=== PATIENT | male | born 1945 | race Caucasian/White ===

== ENCOUNTER 2019-11-30 00:49 | Day surgery (SDC) | payer OTHER, SELFPAY ==
[2019-11-25 09:31] VITALS: BMI 33.5
[2019-11-30 06:45] VITALS: BP 164/70; PULSE 58; RESP 20; O2SAT 97; BMI 34.6
[2019-11-30] MEDS: LACTATED RINGERS 1,000 ML 150 ML IV CONT (06:57)
[2019-11-30 07:05] LABS: Glucose Point of Care 167 (65-105)
--- NOTE | 2019-11-30 07:25 | PM.HPGS ---
History of Present Illness History of Present Illness Consent: Risks, benefits, and alternatives have been discussed and questions answered. Patient agrees to proceed with procedure. Chief complaint: hx of polyps Narrative: Junaid Avilez is a 74 year old male With a history of colon polyps. His last colonoscopy was 7 years ago [facility] Past Medical History Medical History Type 2 diabetes mellitus with hyperglycemia Surgical History Surgical History History of coronary artery bypass graft Family History Family History Father Carcinoma of colon Social History Social History Smoking status: Never smoker Second hand tobacco smoke exposure: No Alcohol intake: never Substance use: never Substance use type: does not use Gender identity (if verbalized by the patient): Male Meds Home Medications and Allergies Home Medications Medication Instructions Recorded Confirmed Type albuterol sulfate 90 mcg/actuation 1 puff INHALATION Q4H PRN 08/19/19 11/30/19 History aerosol inhaler aspirin 81 mg tablet,delayed 81 mg PO DAILY 08/19/19 11/30/19 History release atorvastatin 40 mg tablet 40 mg PO DAILY 08/19/19 11/30/19 History digoxin 250 mcg (0.25 mg) tablet 250 mcg PO DAILY 08/19/19 11/30/19 History glipizide 5 mg tablet, extended 5 mg PO DAILY 08/19/19 11/30/19 History release 24 hr isosorbide mononitrate 30 mg 30 mg PO DAILY 08/19/19 11/30/19 History tablet,extended release 24 hr losartan 50 mg tablet 50 mg PO DAILY 08/19/19 11/30/19 History metformin 500 mg tablet,extended 2,000 mg PO DAILY tablet 08/19/19 11/30/19 History release 24 hr metoprolol succinate 50 mg 50 mg PO DAILY 08/19/19 11/30/19 History tablet,extended release 24 hr terbinafine HCl 250 mg tablet 250 mg PO DAILY 08/19/19 11/30/19 History ticagrelor 90 mg tablet 90 mg PO DAILY tablet 08/19/19 11/30/19 History tramadol 50 mg tablet 50 mg PO Q6H PRN 08/19/19 11/30/19 History triamterene 37.5 0.5 tablet PO QAM tablet 08/19/19 11/30/19 History mg-hydrochlorothiazide 25 mg tablet insulin degludec 100 unit/mL (3 25 unit SUB-Q .QHS #15 ml 10/26/19 11/30/19 Rx mL) subcutaneous pen Allergies Allergy/AdvReac Type Severity Reaction Status Date / Time No Known Allergies Allergy Verified 11/30/19 06:44 Vital Signs Vital Signs - 24 hr 11/30/19 06:45 Pulse Rate 58 L Respiratory Rate 20 Blood Pressure 164/70 H Pulse Oximetry 97 Exam Resp: Auscultation: clear to auscultation bilaterally Cardio: Rate: regular rate Rhythm: regular rhythm GI: GI Palp: Yes Soft to palpation and No Tenderness to palpation present (GI) Assessment and Plan Assessment and plan (1) Personal history of colonic polyps: Code(s): Z86.010 - Personal history of colonic polyps Status: Acute Assessment and Plan: Colonoscopy with possible biopsy or polypectomy or cautery or injection of substances.
--- NOTE | 2019-11-30 07:35 | WPDANESEPPF ---
Anes - Initial Pre Proc Eval Procedure: Operation Date: 11/30/19 08:00 Proposed Procedures p Screening Colonoscopy - Ha Martines MD Date/Time: 11/30/19 07:35 Surgeon: Ha Martines MD Pre Op Diagnosis: hx of polyps Patient Data Age: 74 Gender: M Height: 5 ft 8 in Weight: 103.3 kg Last Vital Signs Pulse 58 L 11/30/19 06:45 Resp 20 11/30/19 06:45 BP 164/70 H 11/30/19 06:45 Pulse Ox 97 11/30/19 06:45 Allergies Allergy/AdvReac Type Severity Reaction Status Date / Time No Known Allergies Allergy Verified 11/30/19 06:44 Home Medications Medication Instructions Recorded Confirmed Type albuterol sulfate 90 mcg/actuation 1 puff INHALATION Q4H PRN 08/19/19 11/30/19 History aerosol inhaler aspirin 81 mg tablet,delayed 81 mg PO DAILY 08/19/19 11/30/19 History release atorvastatin 40 mg tablet 40 mg PO DAILY 08/19/19 11/30/19 History digoxin 250 mcg (0.25 mg) tablet 250 mcg PO DAILY 08/19/19 11/30/19 History glipizide 5 mg tablet, extended 5 mg PO DAILY 08/19/19 11/30/19 History release 24 hr isosorbide mononitrate 30 mg 30 mg PO DAILY 08/19/19 11/30/19 History tablet,extended release 24 hr losartan 50 mg tablet 50 mg PO DAILY 08/19/19 11/30/19 History metformin 500 mg tablet,extended 2,000 mg PO DAILY tablet 08/19/19 11/30/19 History release 24 hr metoprolol succinate 50 mg 50 mg PO DAILY 08/19/19 11/30/19 History tablet,extended release 24 hr terbinafine HCl 250 mg tablet 250 mg PO DAILY 08/19/19 11/30/19 History ticagrelor 90 mg tablet 90 mg PO DAILY tablet 08/19/19 11/30/19 History tramadol 50 mg tablet 50 mg PO Q6H PRN 08/19/19 11/30/19 History triamterene 37.5 0.5 tablet PO QAM tablet 08/19/19 11/30/19 History mg-hydrochlorothiazide 25 mg tablet insulin degludec 100 unit/mL (3 25 unit SUB-Q .QHS #15 ml 10/26/19 11/30/19 Rx mL) subcutaneous pen Laboratory Tests 11/30/19 07:02 POC Capillary Glucose 167 mg/dl H mg/dl (65-105) Patient hx anesthesia problems: none Family hx anesthesia problems: none [facility] Past Medical History Medical History (Updated 11/30/19 @ 07:34 by Parish Mccarthy MD) Hypertensive heart disease without heart failure Mild persistent asthma without complication Type 2 diabetes mellitus with hyperglycemia Surgical History Surgical History History of coronary artery bypass graft Family History Family History Father Carcinoma of colon Social History Social History Smoking status: Never smoker Second hand tobacco smoke exposure: No Alcohol intake: never Substance use: never Substance use type: does not use Gender identity (if verbalized by the patient): Male Anes - Eval Final PreProcedure Day of Procedure 11/30/19 07:35 Patient weight: obese Heart: regular rate and rhythm Lungs: clear to auscultation Airway: Mallampati scale class II Neurological: alert and oriented Last oral intake: >/= 8 hours ASA classification: III Emergent: no Anesthetic plan: proceed Anesthesia type and monitoring: general GIVS and standard monitoring Informed Consent: The patient's anesthetic plan and its attendant risks and benefits were discussed with the patient/family/POA. Questions were solicited and answers provided to the satisfaction of the patient/family/POA.
[2019-11-30 08:16] VITALS: BP 118/68; PULSE 50; RESP 16; O2SAT 96
[2019-11-30 08:26] VITALS: BP 128/78; PULSE 48; RESP 16; O2SAT 96
[2019-11-30 08:31] LABS: Glucose Point of Care 164 (65-105)
[2019-11-30 08:36] VITALS: BP 129/74; PULSE 49; RESP 16; O2SAT 96
== END 2019-11-30 08:59 | disposition home or self-care (01) ==
PROVIDERS: PCP Family Medicine; Visit Provider Internal Medicine Gastroenterology
PROC: 0DJD8ZZ Inspection of Lower Intestinal Tract, Via Natural or Artificial Opening Endoscopic (ICD-10-PCS; CPT 45378; principal; 2019-11-30 08:00)
DX: Z12.11 Encounter for screening for malignant neoplasm of colon (principal); D12.4 Benign neoplasm of descending colon; K57.30 Diverticulosis of large intestine without perforation or abscess without bleeding; Z80.0 Family history of malignant neoplasm of digestive organs; E11.9 Type 2 diabetes mellitus without complications; Z95.1 Presence of aortocoronary bypass graft; Z79.82 Long term (current) use of aspirin; Z79.84 Long term (current) use of oral hypoglycemic drugs; Z79.4 Long term (current) use of insulin; I11.9 Hypertensive heart disease without heart failure; J45.30 Mild persistent asthma, uncomplicated; E66.9 Obesity, unspecified; Z68.34 Body mass index [BMI] 34.0-34.9, adult
CPT/HCPCS: 45385; 88305; J2704; J7120

== ENCOUNTER → 2020-08-14 14:41 | Outpatient (CLI) | payer OTHER, SELFPAY ==
--- NOTE | ~2020-08-14 | XR_ITS ---
EXAMINATION: XR knee RT 2V DATE: 08/14/2020 15:52 INDICATION: Right knee pain post fall TECHNIQUE: Weight bearing anteroposterior and Metz, sunrise, and flexed lateral views of both kn ees were obtained. COMPARISON: None FINDINGS: Bone alignment is normal. No acute fracture. Tricompartmental osteoarthritis with moderate joint spac e during the medial compartment and mild joint space narrowing in the lateral and patellofemoral comp artments with prominent marginal osteophytes in the medial and lateral compartments. Small metallic f oreign body in the anteromedial metaphyseal region of the right tibia. Correlate for history of prior surgery or penetrating trauma. There is infrapatellar soft tissue swelling with couple heterotopic o ssicles along the superficial margin of the patellar tendon. Small to moderate sized right knee joint effusion. IMPRESSION: 1. Moderate medial compartment predominant tricompartmental osteoarthritis of the right knee. 2. Small to moderate-sized right knee joint effusion. Reviewed, dictated and finalized at location [facility] IMPRESSION: 1. Moderate medial compartment predominant tricompartmental osteoarthritis of t he right knee. 2. Small to moderate-sized right knee joint effusion.
== END ==
PROVIDERS: PCP Family Medicine; Visit Provider Family Medicine
DX: M17.11 Unilateral primary osteoarthritis, right knee (principal); M25.461 Effusion, right knee
CPT/HCPCS: 73560

== ENCOUNTER 2022-06-19 15:06 | Outpatient (CLI) | payer OTHER, SELFPAY ==
[2022-06-19 15:31] LABS: Basophils Absolute Auto 0.1 K/mm3 (0.0-0.1); Basophils Percent Auto 0.7 % (0.2-1.2); Eosinophils Absolute Auto 0.2 K/mm3 (0-0.3); Eosinophils Percent Auto 1.5 % (0-4.4); Hematocrit 37.9 % (42.0-52.0); Hemoglobin 12.7 g/dL (14.0-18.0); Immature Granulocyte Absolute 0.13 K/mm3 (0.00-0.031); Immature Granulocyte Percent A 1.2 % (0-0.5); Lymphocytes Absolute Auto 2.08 K/mm3 (0.9-3.2); Lymphocytes Percent Auto 18.6 % (18.3-44.2); Mean Corpuscular HGB Conc 33.5 g/dl (32-36); Mean Corpuscular Hemoglobin 29.9 pg (26-34); Mean Corpuscular Volume 89.2 fl (80-100); Mean Platelet Volume 9.4 fl (7.4-10.4); Monocytes Absolute Auto 0.8 K/mm3 (0.1-0.6); Monocytes Percent Auto 7.3 % (2.6-8.5); Neutrophils Absolute Auto 7.9 K/mm3 (1.3-6.7); Neutrophils Percent Auto 70.7 % (45.5-73.1); Platelet Count Result 279 k/mm3 (150-375); Red Blood Count 4.25 M/mm3 (4.6-6.20); Red Cell Distribution Width 13.2 % (11.5-14.5); White Blood Count 11.2 K/mm3 (4.5-10.0)
[2022-06-19 15:47] LABS: Alanine Aminotransferase 26 U/L (6-50); Albumin Level 4.1 g/dL (3.5-5.1); Alkaline Phosphatase 118 U/L (38-126); Anion Gap 13 mmol/L (8-16); Aspartate Amino Transferase 22 U/L (17-59); Bilirubin,Total 0.4 mg/dL (0.2-1.3); Blood Urea Nitrogen 31 mg/dL (9-20); Calcium 9.1 mg/dL (8.4-10.2); Carbon Dioxide 21 mmol/L (22-30); Chloride 104 mmol/L (98-107); Estimated Glomerular Filt Rate 37; Glucose 153 mg/dL (65-110); Potassium 3.8 mmol/L (3.4-5.0); Sodium 138 mmol/L (137-145)
== END 2022-06-19 15:07 | disposition home or self-care (01) ==
LOC: ANHLAB 15:08
PROVIDERS: PCP Family Medicine; Visit Provider Physician Assistant
DX: E86.0 Dehydration (principal); R19.7 Diarrhea, unspecified
CPT/HCPCS: 36415; 80053; 85025

== ENCOUNTER 2023-08-13 12:29 | Outpatient (CLI) | payer OTHER, SELFPAY ==
[2023-08-13 13:22] LABS: Hemoglobin A1C 6.8 % (<5.7)
[2023-08-13 13:24] LABS: Alanine Aminotransferase 22 U/L (6-50); Albumin Level 4.3 g/dL (3.5-5.1); Alkaline Phosphatase 80 U/L (38-126); Anion Gap 10 mmol/L (8-16); Aspartate Amino Transferase 23 U/L (17-59); Bilirubin,Total 0.7 mg/dL (0.2-1.3); Blood Urea Nitrogen 27 mg/dL (9-20); Calcium 8.9 mg/dL (8.4-10.2); Carbon Dioxide 28 mmol/L (22-30); Chloride 101 mmol/L (98-107); Estimated Glomerular Filt Rate 58; Glucose 161 mg/dL (65-110); Potassium 4.9 mmol/L (3.4-5.0); Sodium 139 mmol/L (137-145)
== END 2023-08-13 12:30 | disposition home or self-care (01) ==
LOC: ANHLAB 12:31
PROVIDERS: PCP Family Medicine; Visit Provider Family Medicine
DX: E11.29 Type 2 diabetes mellitus with other diabetic kidney complication (principal)
CPT/HCPCS: 36415; 80053; 83036

== ENCOUNTER → 2024-03-08 13:10 | Outpatient (REF) | payer OTHER, SELFPAY | LOC: ANHLAB 13:10 | PROVIDERS: PCP Family Medicine; Visit Provider Plastic Surgery | DX: D48.5 Neoplasm of uncertain behavior of skin (principal) | CPT/HCPCS: 88305; 88342 ==

== ENCOUNTER 2024-05-31 10:56 | Outpatient (CLI) | payer OTHER, SELFPAY ==
[2024-05-31 11:36] LABS: Hematocrit 39.5 % (42.0-52.0); Hemoglobin 13.3 g/dL (14.0-18.0); Mean Corpuscular HGB Conc 33.7 g/dl (32-36); Mean Corpuscular Volume 92.1 fl (80-100); Mean Platelet Volume 10.1 fl (7.4-10.4); Platelet Count Result 221 k/mm3 (150-375); Red Blood Count 4.29 M/mm3 (4.6-6.20); Red Cell Distribution Width 13.2 % (11.5-14.5); White Blood Count 11.2 K/mm3 (4.5-10.0)
[2024-05-31 11:47] LABS: Add Urine Microscopic? NO; Appearance Urine Clear (Clear); Bilirubin Urine Negative (Negative); Blood Urine Negative (Negative); Color Urine Yellow (Yellow); Glucose Urine UA 1+ mg/dL (Negative); Ketones Urine Negative (Negative); Leukocyte Esterase Ur Negative LEU/UL (Negative); Nitrate Urine Negative (Negative); Protein Urine Negative (Negative); Urobilinogen Urine 0.2 mg/dL (<2.0); pH Urine 5.5 (5.0-9.0)
[2024-05-31 11:51] LABS: Alanine Aminotransferase 24 U/L (6-50); Albumin Level 4.3 g/dL (3.5-5.1); Alkaline Phosphatase 142 U/L (38-126); Anion Gap 10 mmol/L (4-12); Aspartate Amino Transferase 23 U/L (17-59); Bilirubin,Total 0.6 mg/dL (0.2-1.3); Blood Urea Nitrogen 30 mg/dL (9-20); Calcium 8.9 mg/dL (8.4-10.2); Carbon Dioxide 28 mmol/L (22-30); Chloride 100 mmol/L (98-107); Cholesterol 140 mg/dL (0-200); Estimated Glomerular Filt Rate 49; Glucose 258 mg/dL (65-110); HDL Direct 33 mg/dL; Potassium 4.6 mmol/L (3.4-5.0); Sodium 138 mmol/L (137-145); Triglycerides 300 mg/dL (<150)
[2024-05-31 12:01] LABS: LDL Cholesterol Direct 81 mg/dL
[2024-05-31 12:22] LABS: Creatinine Urine 80.4 mg/dL
[2024-05-31 12:27] LABS: MALB Creatinine Ratio 34.6 mg/g (0-30); Microalbumin Urine Random 27.8 mg/L (0-16.7)
[2024-05-31 13:12] LABS: Hemoglobin A1C 7.3 % (<5.7)
== END 2024-05-31 10:57 | disposition home or self-care (01) ==
LOC: ANHLAB 11:03
PROVIDERS: PCP Family Medicine; Visit Provider Family Medicine
DX: E11.29 Type 2 diabetes mellitus with other diabetic kidney complication (principal); E11.65 Type 2 diabetes mellitus with hyperglycemia; E78.2 Mixed hyperlipidemia; I13.10 Hypertensive heart and chronic kidney disease without heart failure, with stage 1 through stage 4 chronic kidney disease, or unspecified chronic kidney disease; N18.30 Chronic kidney disease, stage 3 unspecified; Z00.00 Encounter for general adult medical examination without abnormal findings; Z79.4 Long term (current) use of insulin; I25.708 Atherosclerosis of coronary artery bypass graft(s), unspecified, with other forms of angina pectoris
CPT/HCPCS: 36415; 80053; 80061; 81003; 82043; 83036; 84443; 85027

== ENCOUNTER 2024-10-11 14:12 | Outpatient (CLI) | payer OTHER, SELFPAY ==
[2024-10-11 14:55] LABS: Alanine Aminotransferase 20 U/L (6-50); Albumin Level 3.9 g/dL (3.5-5.1); Alkaline Phosphatase 118 U/L (38-126); Anion Gap 6 mmol/L (4-12); Aspartate Amino Transferase 25 U/L (17-59); Bilirubin,Total 0.6 mg/dL (0.2-1.3); Blood Urea Nitrogen 24 mg/dL (9-20); Calcium 8.6 mg/dL (8.4-10.2); Carbon Dioxide 28 mmol/L (22-30); Chloride 102 mmol/L (98-107); Estimated Glomerular Filt Rate > 60; Glucose 145 mg/dL (65-110); Potassium 4.4 mmol/L (3.4-5.0); Sodium 136 mmol/L (137-145)
[2024-10-11 19:36] LABS: Hemoglobin A1C 7.1 % (<5.7)
== END 2024-10-11 14:13 | disposition home or self-care (01) ==
PROVIDERS: PCP Family Medicine; Visit Provider Family Medicine
DX: E11.65 Type 2 diabetes mellitus with hyperglycemia (principal); E11.29 Type 2 diabetes mellitus with other diabetic kidney complication; Z79.4 Long term (current) use of insulin
CPT/HCPCS: 36415; 80053; 83036

== ENCOUNTER 2025-02-08 11:48 | Outpatient (CLI) | payer OTHER, SELFPAY ==
--- OUTSIDE RECORDS SUMMARY | 2025-02-08 11:52 | XMS_ITS | CONTINUITY OF CARE DOCUMENT ---
Author Name kavehrociozandra Address Unknown Organization [facility] Address [address] [address] [place] [address] Phone [phone] Care Team Providers Care Director Statistical Programming Name Role Phone Johann MATHEW, Regan Unavailable [phone] JAY MATHEW, AGUSTINA Unavailable [phone] RICARDO MATHEW, RAHAT Unavailable INSURANCE PROVIDERS Payer name Policy type / Coverage type [place] red republican ID [employer] O Other [id number]
--- OUTSIDE RECORDS SUMMARY | 2025-02-08 11:52 | XMS_ITS | Encounter Summary ---
Author Organization [facility] Address [address] [place] [address] Care Team Providers Care Band Attacher Name Role Phone Olivier Puente MD Primary Care Provider Ubaldo Kilgore MD Unavailable [phone] Reason for Referral * Diagnostic Imaging (Routine) - Pending Review Specialty Diagnoses / Procedures Referred By Levon cota Referred To Contact Diagnoses Melanoma of face (HCC) Procedures NM Lymphoscintigraphy SPECT/CT Olivier Hyatt MD [address] [facility] [address] [place] [address] Phone: tel: fax: [address] [phone] Referral ID Status Reason Start Date Expiration Date V isits Requested Visits Authorized [id number] Pending Review 04/11/2024 05/11/2025 2 2 Reason for Visit * Auth/Cert (Routine) Specialty Diagnoses / Procedures Referred By Levon cota Referred To Contact Diagnoses 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 [address] [place] [id number] Melanoma of face (HCC) Social History Tobacco Use Types Packs/Day Years Used Date Smoking Tobacco: Never Smokeless Tobacco: Never Alcohol Use Standard Drinks/Week Comments Never 0 (1 standard drink = 0.6 oz pur e alcohol) AUDIT-C Answer Date Recorded Q1: How often do you have a drink containing alcohol? Never 08/18/2024 Q2: How many drinks containi ng alcohol do you have on a typical day when you are drinking? Patient does not drink Q3: How often do you have si x or more drinks on one occasion? Never 08/18/2024 Personal Safety Answer Date Recorded Have you ever been in or are you currently in a harmful physical or emotional relationship or is someone making you feel afraid or unsafe? 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 Never 08/18/2024 6:16 AM Jade Liu RN Q2: How many drinks containing alcohol do you have on a typical day when you are drinking? Patient does not drink 08/18/2024 6:16 AM Jade Liu RN Q3: How often do you have six or more drinks on one occasion? Never 08/18/2024 6:16 AM Jade Liu RN documented as of this encounter Plan of Treatment Not on file documented as of this encounter Procedures Procedure Name Priority Date/Time Associated Diagnosis Comments NM LYMPHOSCINTIGRAPHY SPECT/CT Schedule Routine, Read Routine (OP Routine) 04/21/2024 10:23 AM CDT Melanoma of face (HCC) documented in this encounter Results * NM Lymphoscintigraphy SPECT/CT (04/21/2024 10:23 AM CDT) Anatomical Region Laterality Modality N/A Nuclear Medicine 04/21/2024 10:5 6 AM CDT Impressions 04/21/2024 3:35 PM CDT [place] node(s) identified as described above for subsequent intraoperative removal with gamma probe guidance. Dictated by: Anushka Zafar MD The radiology attending physician has personally reviewed this study, and had reviewed and/or edited this written report and agrees with it. 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 Morelos FINDINGS: Panel images of the head and neck were obtained beginning at 20 minutes after injection in anterior and posterior projections. For better anatomic characterization SPECT-CT images are also obtained. Intense dhaval uptake is seen in subcentimeter intraparotid lymph node, in the posterior aspect of the inferiormost superficial gland. Fainter uptake in the subcentimeter lymph nodes in the anterosuperior aspect of the superiormost superficial gland. Additional subcentimeter lymph nodes in the left level 1B and left supraclavicular station with very faint uptake Incidental CT findings: Sequela of prior CABG with median sternotomy. Calcification of the aorta. Right pulmonary calcified granuloma. Degenerative changes of the spine. 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 Morelos FINDINGS: Panel images of the head and neck were obtained beginning at 20 minutes after injection in anterior and posterior projections. For better anatomic characterization SPECT-CT images are also obtained. Intense dhaval uptake is seen in subcentimeter intraparotid lymph node, in the posterior aspect of the inferiormost superficial gland. Fainter uptake in the subcentimeter lymph nodes in the anterosuperior aspect of the superiormost superficial gland. Additional subcentimeter lymph nodes in the left level 1B and left supraclavicular station with very faint uptake Incidental CT findings: Sequela of prior CABG with median sternotomy. Calcification of the aorta. Right pulmonary calcified granuloma. Degenerative changes of the spine. IMPRESSION: [place] node(s) identified as described above for subsequent intraoperative removal with gamma probe guidance. Dictated by: Anushka Zafar MD The radiology attending physician has personally reviewed this study, and had reviewed and/or edited this written report and agrees with it. Electronically signed by: Hitesh Morelos MD, Ph.D Olivier Hyatt MD IMG NM PROCEDURES Final Res ult documented in this encounter Visit Diagnoses Diagnosis Melanoma of face (HCC) Malignant melanoma of skin of other and unspecified parts of face documented in this encounter Administered Medications Inactive Administered Medications - up to 3 most recent administrations Medication Order MAR Action Action Date Dose Rate Site Tc-99m tilmanocept (lymphoseek) 0.5 mci injection 1 millicurie 1 millicurie (1,000 microcurie), intradermal, Once in imaging, radiopharmaceutical, Starting on Blanca 04/21/24 at 0851, For 1 dose Given 04/21/2024 9:00 AM CDT 1.1 millicuries documented in this encounter Care Teams Band Attacher Relationship Specialty Start Date End Date Olivier Puente MD [address] [place] [address] PCP - General Family Medicine 02/10/19 Ubaldo Kilgore MD [address] [place] [address] Plastic Surgery 04/10/24 documented as of this encounter
--- OUTSIDE RECORDS SUMMARY | 2025-02-08 11:52 | XMS_ITS | Encounter Summary ---
Author Organization 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 Historical Provider [facility] ANISA MCGUIRE Final Result documented in this encounter Visit Diagnoses Not on filedocumented in this encounter Care Teams Lead Ruby On Rails Developer Relationship Specialty Start Date End Date Olivier Puente MD [address] [facility] [address] [place] [address] PCP - General Family Medicine 02/10/19 Ubaldo Kilgore MD [address] [place] [address] Plastic Surgery 04/10/24 documented as of this encounter
--- OUTSIDE RECORDS SUMMARY | 2025-02-08 11:52 | XMS_ITS | Encounter Summary ---
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 us Historical Provider Final Res ult documented in this encounter Visit Diagnoses Not on filedocumented in this encounter Care Teams Wildlife Biology Internship Relationship Specialty Start Date End Date Olivier Puente MD [address] [facility] [address] [place] [address] PCP - General Family Medicine 02/10/19 Ubaldo Kilgore MD [address] [address] Plastic Surgery 04/10/24 documented as of this encounter
--- OUTSIDE RECORDS SUMMARY | 2025-02-08 11:52 | XMS_ITS ---
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 Stable. Assessment & Plan (09/06/2020 9:14 PM PHYSICIAN GYNECOLOGIST): Chronic. Stable. No associated cardiomyopathy. Assessment & Plan (03/02/2020 2:25 PM CDT): Chronic. Stable. No associated cardiomyopathy. EKG today shows sinus bradycardia rate 53, first-degree AV block, left bundle branch block. Assessment & Plan (08/19/2019 2:50 PM PHYSICIAN GYNECOLOGIST): Chronic. Stable. No intervention required. Assessment & Plan (04/14/2019 7:49 PM CDT): Stable. No intervention required. Assessment & Plan (03/25/2019 2:21 PM CDT): EKG today shows sinus bradycardia rate 55, first-degree AV block, left bundle branch block. History of coronary artery bypass surgery 2018 Assessment & Plan (03/21/2021 5:43 PM CDT): 2002, in [facility]. Assessment & Plan (09/06/2020 9:13 PM PHYSICIAN GYNECOLOGIST): In 2002 in [place], [place]. Assessment & Plan (03/02/2020 2:25 PM CDT): In 2002 in [facility]. Assessment & Plan (08/19/2019 2:50 PM PHYSICIAN GYNECOLOGIST): In 2002 in [place], [place]. Assessment & Plan (04/14/2019 7:50 PM CDT): In 2002 in [place], [place]. PSVT (paroxysmal supraventricular tachycardia) 0 02/10/2019 Assessment & Plan (03/21/2021 5:42 PM CDT): Toprol XL. Digoxin. No recurrence . Assessment & Plan (09/06/2020 9:14 PM PHYSICIAN GYNECOLOGIST): Toprol XL. Digoxin. No recurrence. Assessment & Plan (03/01/2020 8:54 PM CDT): Toprol XL. Digoxin. No recurrence. Assessment & Plan (08/19/2019 2:51 PM PHYSICIAN GYNECOLOGIST): Went to the [facility] and Neal with PSVT. Toprol-XL 50 mg p.o. daily, digoxin 0.125 mg daily. No recurrence of the PSVT. Assessment & Plan (04/14/2019 7:49 PM CDT): Zak went to [facility] brain CT and I with PSVT. The Toprol XL 50 mg p.o. Daily and digoxin 0.125 mg p.o. Daily. No recurrence of the PSVT. Assessment & Plan (03/24/2019 5:58 PM CDT): On 10/23/2007. Went to [facility]. No recurrence of PSVT. Toprol XL 50 mg p.o. Daily and digoxin 0.25 mg p.o. Daily. Heart murmur, systolic 02/12/2018 Assessment & Plan (03/21/2021 5:43 PM CDT): Echo Doppler 08/17/2018 showed normal ejection fraction. Aortic valve sclerosis but no stenosis. Mild AR. Assessment & Plan (09/06/2020 9:13 PM PHYSICIAN GYNECOLOGIST): Echo Doppler 08/17/2018 showed normal ejection fraction. Mild aortic valve sclerosis but no stenosis. Mild AR. Assessment & Plan (03/01/2020 8:54 PM CDT): Echo Doppler 08/17/2018 showed normal ejection fraction. Mild aortic valve sclerosis but no stenosis. Mild aortic valve regurgitation. Assessment & Plan (08/19/2019 2:49 PM PHYSICIAN GYNECOLOGIST): Echo 07/2018 showed normal ejection fraction. Mild aortic valve sclerosis but no aortic valve stenosis. Mild aortic valve regurgitation. Assessment & Plan (04/14/2019 7:47 PM CDT): Echo 07/30/2018 at shown normal ejection fraction. Mild aortic valve sclerosis but no aortic valve stenosis. Mild aortic valve regurgitation. Assessment & Plan (03/24/2019 5:58 PM CDT): Echo 07/30/2018 showed normal ejection fraction. Mild aortic valve sclerosis but no aortic valve stenosis. Mild aortic valve regurgitation. Stented coronary artery 12/04/2017 Overview (02/09/2019): To the ostial ramus intermedius to 11/17/2017. Assessment & Plan (03/21/2021 5:44 PM CDT): To the ostial ramus intermedius to 11/17/2017. Repeat cardiac catheterization 04/07/2019, patent stent. Aspirin. Brilinta. Atorvastatin. Assessment & Plan (09/06/2020 9:16 PM PHYSICIAN GYNECOLOGIST): To the ostial ramus intermedius 11/17/2017. Repeat cardiac catheterization 04/07/2019, patent stent. Antiplatelet regimen. Aggressive risk factor modification. Assessment & Plan (03/01/2020 8:53 PM CDT): To the ostial ramus intermedius to 11/17/2017. Repeat cardiac catheterization 04/07/2019, patent stent. Antiplatelet regimen. Aggressive risk factor modification. Assessment & Plan (08/19/2019 2:48 PM PHYSICIAN GYNECOLOGIST): To the ostial ramus intermedius to 11/17/2017. Repeat cardiac catheterization 04/07/2019, retained stent. Continue the medical Rx. Assessment & Plan (04/15/2019 3:13 PM CDT): To the ostial ramus intermedius to 11/17/2017. Repeat cardiac catheterization 04/07/2019. Medical treatment was decided. Decrease the dose of the Brilinta from 90 mg p.o. B.i.d. to 60 mg p.o. B.i.d., as it has been more than a year, since his most recent stent. Coronary artery disease 07/15/2016 Overview (02/09/2019): Coronary artery bypass surgery 2002 in [facility]. JONAS to LAD, KERRI to ramus. Cardiac cath Dr. Navarro 03/12/2007. Medical treatment. Stable angina. Assessment & Plan (03/21/2021 5:38 PM CDT): Coronary artery bypass surgery 2002 in [facility]. JONAS to LAD, KERRI to ramus. Cardiac cath Dr. Navarro 03/12/2007. Medical treatment. Cardiac catheterization 10/30/2017 with stent insertion in the ostium of the ramus intermedius. Repeat cardiac catheterization 04/07/2019. Medical treatment was decided. Aspirin. Atorvastatin. Brilinta. Assessment & Plan (09/06/2020 9:12 PM PHYSICIAN GYNECOLOGIST): Coronary artery bypass surgery 2002 in [facility]. JONAS to LAD, KERRI to ramus. Cardiac cath Dr. Navarro 03/12/2007. Medical treatment. Stable angina. Cardiac catheterization 10/30/2017 with stent insertion in the ostium of the ramus intermedius. Repeat cardiac catheterization 04/07/2019. Medical treatment was decided. Assessment & Plan (03/02/2020 2:23 PM CDT): Status post coronary bypass surgery. Status post coronary stenting. Cardiac catheterization 03/12/2007, medical treatment. Cardiac catheterization 11/17/2017 with insertion of a stent in the ostium of the ramus intermedius. Repeat cardiac catheterization 04/07/2019. Patent stent to the ramus. Patent JONAS to the LAD. Chronically atretic KERRI. Diffuse disease in the branches of the ramus. Medical treatment was decided. No angina lately. Assessment & Plan (08/19/2019 2:46 PM PHYSICIAN GYNECOLOGIST): Coronary artery bypass surgery 2002 in [facility]. JONAS to LAD, KERRI to ramus. Cardiac cath Dr. Navarro 03/12/2007. Medical treatment. Repeat cardiac catheterization 11/17/2017 after a positive stress test with insertion of a stent in the ostium of the ramus intermedius . Symptoms of angina recur for which he had another cardiac catheterization 04/07/2019. Patent stent to the ramus. Patent JONAS to the LAD. Chronically atretic KERRI. Some branches of the ramus had diffuse disease. Medical treatment was decided. No recent angina. No recent need for sublingual nitroglycerin. Assessment & Plan (04/15/2019 3:11 PM CDT): Coronary artery bypass surgery 2002 in [facility]. JONAS to LAD, KERRI to ramus. Cardiac cath Dr. Navarro 03/12/2007. Medical treatment. Stable angina. The repeat cardiac catheterization was done 11/17/2017 after a positive stress test with insertion of a stent in the ostium of the ramus intermedius. Symptoms of angina for which she had another cardiac catheterization 04/07/2019. Patent stent to the ramus. Patent JONAS to the LAD. Chronically atretic KERRI. Some branches of the ramus had diffuse disease. Medical treatment was decided. Assessment & Plan (03/25/2019 2:18 PM CDT): Coronary artery bypass surgery 2003 in [facility]. JONAS to LAD, KERRI to ramus. Abnormal stress test after which a cardiac catheterization was done and underwent stenting to the ostial ramus intermedius 11/17/2017. He did well initially. Having chest pains with exertion again. Will set up cardiac catheterization with Dr. Navarro in the next few days. Hypertensive heart disease 07/15/2016 Assessment & Plan (03/22/2021 3:13 PM CDT): Salt restriction. Losartan. Toprol XL. Triamterene-HCTZ. Blood pressure 136/76. Assessment & Plan (09/07/2020 2:57 PM PHYSICIAN GYNECOLOGIST): Blood pressure 122/66. Salt restriction. Continue the current regimen. Assessment & Plan (03/02/2020 2:24 PM CDT): Blood pressure 122/68. Salt restriction. Continue the current regimen. Assessment & Plan (08/19/2019 2:46 PM PHYSICIAN GYNECOLOGIST): Blood pressure 122/60. Salt restriction. Continue the current regimen. Assessment & Plan (04/15/2019 3:11 PM CDT): Blood pressure 124/60. Salt restriction. Continue the current regimen. Assessment & Plan (03/25/2019 2:19 PM CDT): Blood pressure 164/70. Received a steroid injection in his right knee yesterday. Also has been out of triamterene/HCTZ for the last 1 month. I sent a refill request to his pharmacy right away and told the patient to start taking it right away. Hyperlipidemia 07/15/2016 Assessment & Plan (03/22/2021 3:11 PM CDT): Low-fat low-cholesterol diet. Lipitor. June 2020 the LDL was 76. Assessment & Plan (09/07/2020 2:57 PM PHYSICIAN GYNECOLOGIST): Low-fat low-cholesterol diet. Lipitor. 09/2018 the LDL was 79. In June 2020 the LDL was 76. Assessment & Plan (03/01/2020 8:52 PM CDT): Low-fat low-cholesterol diet. Lipitor 40 mg bedtime daily. On 04/07/2019 the LDL was 79. Assessment & Plan (08/19/2019 2:47 PM PHYSICIAN GYNECOLOGIST): Low-fat low-cholesterol diet. Lipitor 40 mg bedtime daily. On 04/07/2019 the LDL was 79. Assessment & Plan (04/14/2019 7:37 PM CDT): Low-fat low-cholesterol diet. Lipitor 40 mg p.o. Daily . On 04/07/2019 the triglycerides were 131, total cholesterol 142, HDL 37, LDL 79. Assessment & Plan (03/24/2019 5:56 PM CDT): Low-fat low-cholesterol diet. Lipitor 40 mg bedtime daily. And October 2016 the total cholesterol was 146, HDL 35, LDL 84, triglycerides 134. Bronchial asthma 07/15/2016 Assessment & Plan (03/02/2020 2:24 PM CDT): Stable. No coughing or wheezing on this visit. Lungs are clear to auscultation. Diabetes mellitus 07/15/2016 Overview (02/09/2019): Adult onset Current Treatment and Therapy Plans [id number] - [facility] - Melanoma - Control Arm - Pembrolizumab* Plan Start Date: 07/17/2024 Plan Provider:Tan Harrell MD Linked Problems Melanoma of face (HCC)Metast atic melanoma to parotid gland (HCC) Treatment Medications Current Day (Day 1 , Cycle 9 - Planned for 01/02/2025) Next Day (Day 1, Cycle 10 - Planned for 01/23/2025) INV-[facility] (/[id number]) pembrolizumab (MK-3475) IVPB in 100 mL INV-[facility] pembrolizumab (MK-3475) (/[id number]) 200 mg in sodium chloride 0.9% 100 mL IVPB INV-[facility] pembrolizumab (MK-3475) (/[id number]) 200 mg in sodium chloride 0.9% 100 mL IVPB Nivolumab 3 mg/kg / Ipilimumab 1 mg/kg 21 Day Cycles* Plan Start Date:01/04/2025 Plan Provider:Tan Harrell MD Linked Problems Melanoma of face (HCC)Metast atic melanoma to parotid gland (HCC) Treatment Medications Current Day (Day 1 , Cycle 3 - Planned for 02/27/2025) Next Day (Day 1, Cycle 4 - Planned for 03/20/2025) ipilimumab (YERVOY)ipilimumab (YERVOY) IVPB in 50 mLnivolumab (OPDIVO)nivolumab (OPDIVO) in 50 mL IVPB ipilimumab (YERVOY) 100 mg in sodium chloride 0.9% 50 mL IVPBnivolumab (OPDIVO) 300 mg in sodium chloride 0.9% 50 mL IVPB ipilimumab (YERVOY) 100 mg in sodium chloride 0.9% 50 mL IVPBnivolumab (OPDIVO) 300 mg in sodium chloride 0.9% 50 mL IVPB Past Treatment and Therapy Plans No past plan information found. Lifetime Dose Tracking * Chemical Lifetime Dose Automatic Entry Manual Entr y Air kerma at the reference point (Ka,r) 2,644 mGy 0 mGy 2,644 mGy DLP 4,145 mGycm 4,145 mGycm 0 mGycm
--- OUTSIDE RECORDS SUMMARY | 2025-02-08 11:52 | XMS_ITS | Encounter Summary ---
Author Organization [facility] Care Team Providers Care Teacher Tutor Name Role Phone Olivier Puente MD Primary Care Provider Ubaldo Kilgore MD Unavailable [phone] Encounter Details Date Type Department Care Team (Latest Contact Info) Description 02/10/2002 Orders Only [facility]IN[facility] ProviderGiles MD [address] [place] [id number] Social History Tobacco Use Types Packs/Day Years Used Date Smoking Tobacco: Never Assessed Sex and Gender Information Value Date Recorded Sex Assigned at Not on file Legal Sex Male 5:34 AM HEALTHCARE RISK CONTROL CONSULTANT Gender Identity Not on file Sexual Orientation Not on file documented as of this encounter Plan of Treatment Not on file documented as of this encounter Procedures Procedure Name Priority Date/Time Associated Diagnosis Comments CARDIOLOGY REPORT 09/04/2016 12: 00 AM HEALTHCARE RISK CONTROL CONSULTANT documented in this encounter Results * CARDIOLOGY REPORT (09/04/2016 12:00 AM HEALTHCARE RISK CONTROL CONSULTANT) Anatomical Region Laterality Modality Other Narrative 09/04/2016 12:00 AM HEALTHCARE RISK CONTROL CONSULTANT Ordered by an unspecified provider. Historical Provider [facility] ANISA MCGUIRE Final Result documented in this encounter Visit Diagnoses Not on filedocumented in this encounter Care Teams Teacher Tutor Relationship Specialty Start Date End Date Olivier Puente MD [address] [facility] [address] [place] [address] PCP - General Family Medicine 02/10/19 Ubaldo Kilgore MD [address] [place] [address] Plastic Surgery 04/10/24 documented as of this encounter
--- OUTSIDE RECORDS SUMMARY | 2025-02-08 11:52 | XMS_ITS | Referral Summary ---
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) 01/02/2025 9:01 AM CDT - 01/02/2025 11:59 PM CDT Hospital Encounter [facility] ([facility]) [address] [place] [address] Tan Harrell MD Melanoma of face (HCC); 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) (Primary Dx); Melanoma of face (HCC); 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) 12/23/2024 Orders Only [facility] [address] [place] [address] 6 [place] [address] Tan Harrell MD Melanoma 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) (Primary Dx); Melanoma of face (HCC); 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); Head and neck lymphadenopathy 12/21/2024 11:56 AM CDT - 12/21/2024 11:59 PM CDT Hospital Encounter [facility] ([facility]) [address] [place] [address] 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); 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); Malignant melanoma of face (HCC); Mass of left side of neck Discharge Disposition: Discharge to home or self care 12/21/2024 11:56 AM CDT - 12/21/2024 11:59 PM CDT Hospital Encounter [facility] ([facility]) [address] [place] [address] Melanoma of face (HCC); 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) 11/20/2024 Orders Only [facility] [address] [place] [address] 6 [place] [address] Tan Harrell MD Clinical trial participant (Primary Dx) from Last 3 Months Allergies No known active allergies Medications glipiZIDE XL (GLUCOTROL XL) 5 mg 24 hr tabletIndicatio ns:type 2 diabetes mellitus Take 1 tablet (5 mg total) by mouth every morning Once daily 01/11/20 19 Active metFORMIN (GLUCOPHAGE) 500 mg tabletIndicatio ns:type 2 diabetes mellitus Take 4 tablets (2,000 mg total) by mouth every evening Once daily Active aspirin 81 mg chewable tabletIndicatio ns:post- CABG Take 1 tablet (81 mg total) by mouth every morning Active omega 3-lel-jfq-fish oil 1,000 mg (120 mg-180 mg) capsuleIndicati ons:supplement Take 1 capsule (1,000 mg total) by mouth every morning Active albuterol HFA (PROVENTIL HFA,VENTOLIN HFA,PROAIR HFA) 90 mcg/actuation inhalerIndicati ons:Acute Asthma Attack Inhale 1 puff as needed 01/02/20 18 Active Tradjenta 5 mg tabletIndicatio ns:type 2 diabetes mellitus Take 1 tablet (5 mg total) by mouth every morning 01/19/20 22 Active BD Ultra-Fine Orig Pen Needle 29 gauge x 1/2 needle USE TO INJECT ONCE DAILY 12/06/19 22 Active triamterene-hyd roCHLOROthiazid e 37.5-25 mg per tablet TAKE 1/2 TABLET BY MOUTH ONCE DAILY 45 tablet 1 06/19/20 22 Active nitroglycerin (NITROSTAT) 0.[address] 1 TABLET UNDER TONGUE EVERY 5 MINS, UP TO 3 DOSES NEEDED FOR CHEST PAIN 25 tablet 3 04/27/20 23 Active SEMGLEE-yfgn 100 unit/mL (3 mL) pen for injectionIndica tions:DM2 Inject 25 Units under the skin nightly INJECT 25 UNITS (0.25 ML) UNDER THE SKIN EVERY NIGHT FOR 30 DAYS 03/04/20 24 Active oxyCODONE (ROXICODONE) 5 mg immediate release tabletIndicatio ns:Pain Take 1 tablet (5 mg total) by mouth every 4 (four) hours as needed for pain for up to 10 doses 10 tablet 04/21/20 24 Active isosorbide mononitrate ER (IMDUR) 60 mg 24 hr tabletIndicatio ns:prevention of anginal pain in coronary artery disease Take 1 tablet (60 mg total) by mouth every morning 90 tablet 3 06/27/20 24 Active ranolazine ER (Ranexa) 500 mg 12 hr tablet Take 2 tablets (1,000 mg total) by mouth 2 (two) times a day 60 tablet 6 08/18/20 24 Active ezetimibe (ZETIA) 10 mg tablet Take 1 tablet (10 mg total) by mouth daily 90 tablet 3 09/27/20 24 Active metoprolol XL (TOPROL-XL) 50 mg extended release tablet TAKE 1 TABLET BY MOUTH EVERY DAY 90 tablet 2 10/20/19 25 Active atorvastatin (LIPITOR) 80 mg tablet TAKE 1 TABLET BY MOUTH EVERY DAY 90 tablet 3 11/14/19 25 Active losartan (COZAAR) 50 mg tablet TAKE 1 TABLET BY MOUTH EVERY DAY 90 tablet 2 12/27/19 Active LANTUS 100 unit/mL (3 mL) pen for injection INJECT 25 UNITS SUBCUTANEOUSLY EVERY EVENING 01/18/20 Active Active Problems Problem Noted Date Diagnosed Date Chest pressure 08/15/2024 Coronary atherosclerosis of apache coronary yenny ry 08/15/2024 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 Stable. Assessment & Plan (09/06/2020 9:14 PM FIELD SALES SPECIALIST): Chronic. Stable. No associated cardiomyopathy. Assessment & Plan (03/02/2020 2:25 PM CDT): Chronic. Stable. No associated cardiomyopathy. EKG today shows sinus bradycardia rate 53, first-degree AV block, left bundle branch block. Assessment & Plan (08/19/2019 2:50 PM FIELD SALES SPECIALIST): Chronic. Stable. No intervention required. Assessment & Plan (04/14/2019 7:49 PM CDT): Stable. No intervention required. Assessment & Plan (03/25/2019 2:21 PM CDT): EKG today shows sinus bradycardia rate 55, first-degree AV block, left bundle branch block. History of coronary artery bypass surgery 2018 Assessment & Plan (03/21/2021 5:43 PM CDT): 2002, in [facility]. Assessment & Plan (09/06/2020 9:13 PM FIELD SALES SPECIALIST): In 2002 in [place], [place]. Assessment & Plan (03/02/2020 2:25 PM CDT): In 2002 in [facility]. Assessment & Plan (08/19/2019 2:50 PM FIELD SALES SPECIALIST): In 2002 in [place], [place]. Assessment & Plan (04/14/2019 7:50 PM CDT): In 2002 in [place], [place]. PSVT (paroxysmal supraventricular tachycardia) 0 02/10/2019 Assessment & Plan (03/21/2021 5:42 PM CDT): Toprol XL. Digoxin. No recurrence . Assessment & Plan (09/06/2020 9:14 PM FIELD SALES SPECIALIST): Toprol XL. Digoxin. No recurrence. Assessment & Plan (03/01/2020 8:54 PM CDT): Toprol XL. Digoxin. No recurrence. Assessment & Plan (08/19/2019 2:51 PM FIELD SALES SPECIALIST): Went to the [facility] and [place] with PSVT. Toprol-XL 50 mg p.o. daily, digoxin 0.125 mg daily. No recurrence of the PSVT. Assessment & Plan (04/14/2019 7:49 PM CDT): Zak went to [facility] brain CT and I with PSVT. The Toprol XL 50 mg p.o. Daily and digoxin 0.125 mg p.o. Daily. No recurrence of the PSVT. Assessment & Plan (03/24/2019 5:58 PM CDT): On 10/23/2007. Went to [facility] [place]. No recurrence of PSVT. Toprol XL 50 mg p.o. Daily and digoxin 0.25 mg p.o. Daily. Heart murmur, systolic 02/12/2018 Assessment & Plan (03/21/2021 5:43 PM CDT): Echo Doppler 08/17/2018 showed normal ejection fraction. Aortic valve sclerosis but no stenosis. Mild AR. Assessment & Plan (09/06/2020 9:13 PM FIELD SALES SPECIALIST): Echo Doppler 08/17/2018 showed normal ejection fraction. Mild aortic valve sclerosis but no stenosis. Mild AR. Assessment & Plan (03/01/2020 8:54 PM CDT): Echo Doppler 08/17/2018 showed normal ejection fraction. Mild aortic valve sclerosis but no stenosis. Mild aortic valve regurgitation. Assessment & Plan (08/19/2019 2:49 PM FIELD SALES SPECIALIST): Echo 07/2018 showed normal ejection fraction. Mild [...] Atorvastatin. Assessment & Plan (09/06/2020 9:16 PM FIELD SALES SPECIALIST): To the ostial ramus intermedius 11/17/2017. Repeat cardiac catheterization 04/07/2019, patent stent. Antiplatelet regimen. Aggressive risk factor modification. Assessment & Plan (03/01/2020 8:53 PM CDT): To the ostial ramus intermedius to 11/17/2017. Repeat cardiac catheterization 04/07/2019, patent stent. Antiplatelet regimen. Aggressive risk factor modification. Assessment & Plan (08/19/2019 2:48 PM FIELD SALES SPECIALIST): To the ostial ramus intermedius to 11/17/2017. [...] 07/15/2016 Overview (02/09/2019): Coronary artery bypass surgery 2003 in [facility]. JONAS to LAD, KERRI to ramus. Cardiac cath Dr. Navarro 03/12/2007. Medical treatment. Stable angina. Assessment & Plan (03/21/2021 5:38 PM CDT): Coronary artery bypass surgery 2002 in [facility]. JONAS to LAD, KERRI to ramus. Cardiac cath Dr. Navarro 03/12/2007. Medical treatment. Cardiac catheterization 10/30/2017 with stent insertion in the ostium of the ramus intermedius. Repeat cardiac catheterization 04/07/2019. Medical treatment was decided. Aspirin. Atorvastatin. Brilinta. Assessment & Plan (09/06/2020 9:12 PM FIELD SALES SPECIALIST): Coronary artery bypass surgery 2002 in [facility]. JONAS to LAD, KERRI to ramus. Cardiac [...] lately. Assessment & Plan (08/19/2019 2:46 PM FIELD SALES SPECIALIST): Coronary artery bypass surgery 2003 in [facility]. JONAS to LAD, KERRI to ramus. Cardiac [...] CDT): Coronary artery bypass surgery 2002 in [facility]. JONAS to LAD, KERRI to ramus. Cardiac [...] 2:18 PM CDT): Coronary artery bypass surgery 2002 in [facility]. JONAS to LAD, KERRI to ramus. Abnormal [...] 136/76. Assessment & Plan (09/07/2020 2:57 PM FIELD SALES SPECIALIST): Blood pressure 122/66. Salt restriction. Continue the current regimen. Assessment & Plan (03/02/2020 2:24 PM CDT): Blood pressure 122/68. Salt restriction. Continue the current regimen. Assessment & Plan (08/19/2019 2:46 PM FIELD SALES SPECIALIST): Blood pressure 122/60. Salt restriction. Continue the [...] 76. Assessment & Plan (09/07/2020 2:57 PM FIELD SALES SPECIALIST): Low-fat low-cholesterol diet. Lipitor. 09/2018 the LDL was 79. In June 2020 the LDL was 76. Assessment & Plan (03/01/2020 8:52 PM CDT): Low-fat low-cholesterol diet. Lipitor 40 mg bedtime daily. On 04/07/2019 the LDL was 79. Assessment & Plan (08/19/2019 2:47 PM FIELD SALES SPECIALIST): Low-fat low-cholesterol diet. Lipitor 40 mg bedtime [...] Diabetes mellitus 07/15/2016 Overview (02/09/2019): Adult onset Immunizations Immunization Administration Dates Next Due Influenza, Quad, Adjuvantated, Intramuscular 06/2020 Influenza, Trivalent, High D ose, Split, Preservative Free, Intramuscular 09/04/2019,06/23/2018 Influenza, Trivalent, IM (MDV) 06/02/2013 Social History Tobacco Use Types Packs/Day Years Used Date Smoking Tobacco: Never Smokeless Tobacco: Never Tobacco Cessation:Counseling Given: Not Answered Alcohol Use Standard Drinks/Week Comments Never 0 [...] on file Legal Sex Male 5:34 AM FIELD SALES SPECIALIST Gender Identity Not on file Sexual Orientation Not on file Last Filed Vital Signs Vital Sign Reading Time Taken Comments Blood Pressure 145/76 01/30/2025 10:44 AM CDT Pulse 51 01/30/2025 10:44 AM CDT Temperature 36.2 C (97.2 F) 01/30/2025 10:44 AM CDT Respiratory Rate 18 01/30/2025 10:4 4 AM CDT Oxygen Saturation 97% 01/30/2025 10: 44 AM CDT Inhaled Oxygen Concentration - - Weight 98.8 kg (217 lb 12.8 oz) 025 10:44 AM CDT Height 168.1 cm (5' 6.18 ) 01/05/2025 7:34 AM CD T Body Mass Index 34.96 01/05/2025 7:34 AM CDT Plan of Treatment Not on file Medical Devices Implanted Type Area Preforming Machine Operator Device Identifier Shelf Expiration Date Model / Serial / Lot GetIntent Angio-Seal Vip 6fr Closere Device [id number] - [id number] Implanted:Qty: 1 on 04/06/2023 by Phill Navarro MD at [facility] [employer] [facility] 09/27/2023 [id number] / / [id number] [employer] System Closure Repair Femoral Artery Suture Mediated Perclose Prostyle 35554-95 - [id number] Implanted:Qty: 1 on 08/18/2024 by Phill Navarro MD at [facility] [employer] 04/27/2026 [id number] / / [id number] Procedures Procedure Name Priority Date/Time Associated Diagnosis Comments SCAN - PATHOLOGY 01/31/2025 2:42 PM CDT EGFR STAT 01/30/2025 10:22 AM CDT Melanoma of face (HCC) 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) DIFFERENTIAL AUTO Routine 01/30/2025 10:22 AM CDT Melanoma of face (HCC) 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) LACTATE DEHYDROGENASE Routine 01/30/2025 10:22 AM CDT Melanoma of face (HCC) 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) THYROID FUNCTION CASCADE Routine 01/30/2025 10:22 AM CDT Melanoma of face (HCC) 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) CBC WITH AUTO DIFFERENTIAL Routine 01/30/2025 10:22 AM CDT Melanoma of face (HCC) 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) COMPREHENSIVE METABOLIC PANEL STAT 01/30/2025 10:22 AM CDT Melanoma of face (HCC) 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) CORTISOL Routine 01/30/2025 10:22 AM CDT Melanoma of face (HCC) 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) SIGNATERA ONLY Routine 01/30/2025 10:11 AM CDT Melanoma of face (HCC) 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) EGFR STAT 01/05/2025 7:02 AM CDT Melanoma of face (HCC) 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) T4, FREE Routine 01/05/2025 7:02 AM CDT Melanoma of face (HCC) 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) DIFFERENTIAL AUTO Routine 01/05/2025 7:0 2 AM CDT Melanoma of face (HCC) 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) CBC WITH AUTO DIFFERENTIAL Routine 01/05/2025 7:02 AM CDT Melanoma of face (HCC) 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) COMPREHENSIVE METABOLIC PANEL STAT 01/05/2025 7:02 AM CDT Melanoma of face (HCC) 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) THYROID FUNCTION CASCADE Routine 01/05/2025 7:02 AM CDT Melanoma of face (HCC) 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) CORTISOL Routine 01/05/2025 7:02 AM CDT Melanoma of face (HCC) 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) SIGNATERA ONLY Routine 01/05/2025 6:37 AM CDT Melanoma of face (HCC) 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) URINALYSIS AND REFLEX TO MICROSCOPIC AND CULTURE Routine 01/02/2025 11:43 AM CDT Melanoma of face (HCC) 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) EGFR STAT 01/02/2025 11:30 AM CDT Melanoma of face (HCC) 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) DIFFERENTIAL AUTO Routine 01/02/2025 11:30 AM CDT Melanoma of face (HCC) 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) CBC WITH AUTO DIFFERENTIAL Routine 01/02/2025 11:30 AM CDT Melanoma of face (HCC) 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) COMPREHENSIVE METABOLIC PANEL STAT 01/02/2025 11:30 AM CDT Melanoma of face (HCC) 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) MAGNESIUM Routine 01/02/2025 11:30 AM CDT Melanoma of face (HCC) 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) PHOSPHORUS Routine 01/02/2025 11:30 AM CDT Melanoma of face (HCC) 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) PROTIME-INR Routine 01/02/2025 11:30 AM CDT Melanoma of face (HCC) 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) APTT Routine 01/02/2025 11:30 AM CDT Melanoma of face (HCC) 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) TSH Routine 01/02/2025 11:30 AM CDT Melanoma of face (HCC) 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) T3, FREE Routine 01/02/2025 11:30 AM CDT Melanoma of face (HCC) 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) T4, FREE Routine 01/02/2025 11:30 AM CDT Melanoma of face (HCC) 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) LACTATE DEHYDROGENASE Routine 01/02/2025 11:30 AM CDT Melanoma of face (HCC) 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) CT CHEST ABDOMEN PELVIS W CONTRAST Schedule Routine, Read Routine (OP Routine) 01/02/2025 10:28 AM CDT Melanoma of face (HCC) 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) CT SOFT TISSUE NECK W CONTRAST Schedule Routine, Read Routine (OP Routine) 01/02/2025 10:28 AM CDT Melanoma of face (HCC) 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) MRI BRAIN W WO CONTRAST Schedule Routine, Read Routine (OP Routine) 12/29/2024 8:12 AM CDT Melanoma of face (HCC) 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) [facility] CAN[facility]ER SEEK + ADDITIONAL TESTS Routine 12/23/2024 12:17 PM CDT Melanoma of face (HCC) 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) Melanoma 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) US GUIDED BIOPSY LYMPH NODE SUPERFICIAL LEFT Schedule SANTINO, Read SANTINO (Appt Today, Awaiting Results) 12/21/2024 2:15 PM CDT Melanoma of face (HCC) 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) Head and neck lymphadenopathy SURGICAL PATHOLOGY Routine 12/21/2024 2: 00 PM CDT Melanoma of face (HCC) 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) Head and neck lymphadenopathy US SOFT TISSUE NECK Schedule Routine, Read Routine (OP Routine) 12/21/2024 1:20 PM CDT 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) Malignant melanoma of face (HCC) Mass of left side of neck EGFR STAT 12/12/2024 7:52 AM CDT Melanoma of face (HCC) 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) DIFFERENTIAL AUTO Routine 12/12/2024 7:5 2 AM CDT Melanoma of face (HCC) 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) CBC WITH AUTO DIFFERENTIAL Routine 12/12/2024 7:52 AM CDT Melanoma of face (HCC) 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) COMPREHENSIVE METABOLIC PANEL STAT 12/12/2024 7:52 AM CDT Melanoma of face (HCC) 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) MAGNESIUM Routine 12/12/2024 7:52 AM CDT Melanoma of face (HCC) 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) PHOSPHORUS Routine 12/12/2024 7:52 AM CDT Melanoma of face (HCC) 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) PROTIME-INR Routine 12/12/2024 7:52 AM CDT Melanoma of face (HCC) 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) APTT Routine [id number]|2025-02-08 11:53:00|2025-02-08 11:52:00|XMS_ITS|BKG DAEMON|External Medical Summaries|[id number]|" Encounter Summary Created on: February 08, 2025 Junaid Avilez : 1945 Sex: Male Author Organization [facility] Facility Care Team Providers Care Wood Turning Lathe Operator Name Role Phone Olivier Puente MD Primary Care Provider Ubaldo Kilgore MD Unavailable [phone] Encounter Details Date Type Department Care Team (Latest Contact Info) Description 11/17/2016 Orders Only [facility]INCON[facility] Provider, MD [facility] [place] [address] Social History Tobacco Use Types Packs/Day Years Used Date Smoking Tobacco: Never Assessed Sex and Gender Information Value Date Recorded Sex Assigned at Not on file Legal Sex Male 5:34 AM FIELD SALES SPECIALIST Gender Identity Not on file Sexual Orientation Not on file documented as of this encounter Plan of Treatment Not on file documented as of this encounter Procedures Procedure Name Priority Date/Time Associated Diagnosis Comments SCAN - LABS 11/17/2016 12:00 AM FIELD SALES SPECIALIST documented in this encounter Results * SCAN - LABS (11/17/2016 12:00 AM FIELD SALES SPECIALIST) Narrative 11/17/2016 12:00 AM FIELD SALES SPECIALIST Ordered by an unspecified provider. Historical Provider Final Res ult documented in this encounter Visit Diagnoses Not on filedocumented in this encounter Care Teams Wood Turning Lathe Operator Relationship Specialty Start Date End Date Olivier Puente MD [address] [place] [address] PCP - General Family Medicine 02/10/19 Ubaldo Kilgore MD [address] [place] [address] Plastic Surgery 04/10/24 documented as of this encounter "
--- OUTSIDE RECORDS SUMMARY | 2025-02-08 11:52 | XMS_ITS | Encounter Summary ---
Author Organization [facility] Facility Care Team Providers Care Harness Preparer Name Role Phone Olivier Puente MD Primary Care Provider Ubaldo Kilgore MD Unavailable [phone] Encounter Details Date Type Department Care Team (Latest Contact Info) Description 03/12/2007 Orders Only [facility] CLINCONV ProviderGiles MD [address] [place] [address] Social History Tobacco Use Types Packs/Day Years Used Date Smoking Tobacco: Never Assessed Sex and Gender Information Value Date Recorded Sex Assigned at Not on file Legal Sex Male 5:34 AM ADMINISTRATIVE ASSISTANT FRONT DESK Gender Identity Not on file Sexual Orientation Not on file documented as of this encounter Plan of Treatment Not on file documented as of this encounter Procedures Procedure Name Priority Date/Time Associated Diagnosis Comments CARDIOLOGY REPORT 11/06/2017 12: 00 AM ADMINISTRATIVE ASSISTANT FRONT DESK CARDIOLOGY REPORT 09/04/2016 12: 00 AM ADMINISTRATIVE ASSISTANT FRONT DESK documented in this encounter Results * CARDIOLOGY REPORT (11/06/2017 12:00 AM ADMINISTRATIVE ASSISTANT FRONT DESK) Anatomical Region Laterality Modality Other Narrative 11/06/2017 12:00 AM ADMINISTRATIVE ASSISTANT FRONT DESK Ordered by an unspecified provider. Historical Provider MD [facility] ANISA MCGUIRE Final Result * CARDIOLOGY REPORT (09/04/2016 12:00 AM ADMINISTRATIVE ASSISTANT FRONT DESK) Anatomical Region Laterality Modality Other Narrative 09/04/2016 12:00 AM ADMINISTRATIVE ASSISTANT FRONT DESK Ordered by an unspecified provider. Historical Provider MD [facility] PROCE MAYNOR Final Result documented in this encounter Visit Diagnoses Not on filedocumented in this encounter Care Teams Harness Preparer Relationship Specialty Start Date End Date Olivier Puente MD [address] [place] [address] PCP - General Family Medicine 02/10/19 Ubaldo Kilgore MD [address] [place] [address] Plastic Surgery 04/10/24 documented as of this encounter
--- OUTSIDE RECORDS SUMMARY | 2025-02-08 11:52 | XMS_ITS | Clinical Summary ---
Author Organization [facility] Address [address] [place] [id number] Care Team Providers Care Parent Educator Name Role Phone Olivier Puente MD Primary Care Provider [phone] Allergies No known active allergies Medications PROAIR HFA 108 (90 Base) MCG/ACT inhaler 01/01/2018 Active atorvastatin 40 MG tablet 10/18/2018 Active digoxin 0.25 MG tablet 07/30/2018 Active glipiZIDE extended release 5 MG 24 hr tablet 10/09/2018 A ctive isosorbide mononitrate ER 30 MG 24 hr tablet 07/30/2018 Act alem losartan 50 MG tablet 08/30/2018 Active metFORMIN 500 MG 24 hr tablet 09/26/2018 Active metoprolol succinate 50 MG 24 hr tablet 09/26/2018 Active JANUVIA 100 MG tablet 03/12/2018 Active BRILINTA 90 MG tablet 06/08/2018 Active traMADol 50 MG tablet 10/22/2018 Active triamterene-hydro chlorothiazide 37.5-25 MG tablet 10/04/2018 A ctive tizanidine 4 MG tabletIndications :Spinal stenosis of lumbar region with neurogenic claudication Take 1 tablet (4 mg total) by mouth every 8 (eight) hours as needed. 40 tablet 1 10/29/2018 Active Active Problems No known active problems Social History Tobacco Use Types Packs/Day Years Used Date Smoking Tobacco: Never Smokeless Tobacco: Never Sex and Gender Information Value Date Recorded Sex Assigned at Not on file Legal Sex Male 6:52 PM CDT Gender Identity Not on file Sexual Orientation Not on file Last Filed Vital Signs Vital Sign Reading Time Taken Comments Blood Pressure 140/78 10/29/2018 9:06 AM INDUSTRIAL X RAY OPERATOR Pulse 76 10/29/2018 9:06 AM INDUSTRIAL X RAY OPERATOR Temperature - - Respiratory Rate - - Oxygen Saturation - - Inhaled Oxygen Concentration - - Weight 104.4 kg (230 lb 3.2 oz) 10/29/2018 9:06 AM INDUSTRIAL X RAY OPERATOR Height 172.7 cm (5' 8 ) 10/29/2018 9:06 AM INDUSTRIAL X RAY OPERATOR Body Mass Index 35 10/29/2018 9:06 AM INDUSTRIAL X RAY OPERATOR Plan of Treatment Health Maintenance Due Date Last Done Comments DTaP, Tdap and Td Vaccines ( 1 - Tdap) 1962 Pneumococcal Vaccine: 50+ Ye ars (1 of 1 - PCV) 1993 Zoster Vaccines (1 of 2) 1993 Annual Medicare Wellness Visit 2008 RSV Immunization or 60+ Years (1 - 1-dose 75+ series) 2018 COVID-19 Vaccine ( - 2023-2 5 season) 2024 Meningococcal B Vaccine Aged Out No l onger eligible based on patient's age to complete this topic Meningococcal Vaccine Aged Out No blu marah eligible based on patient's age to complete this topic RSV Immunizations Under 20 Months Aged Out No longer eligible based on patient's age to complete this topic Insurance [employer] Care Teams Parent Educator Relationship Specialty Start Date End Date Olivier Puente MD [address] [place] [address] PCP - General FAMILY PRACTICE 10/05/18
--- OUTSIDE RECORDS SUMMARY | 2025-02-08 11:53 | XMS_ITS | Encounter Summary ---
Author Organization [facility] Facility Care Team Providers Care Emergency Services Professional Name Role Phone Olivier Puente MD Primary Care Provider Ubaldo Kilgore MD Unavailable [phone] Encounter Details Date Type Department Care Team (Latest Contact Info) Description 12/22/2014 Orders Only [facility] CLINCONV ProviderGiles MD [address] [place] [address] Social History Tobacco Use Types Packs/Day Years Used Date Smoking Tobacco: Never Assessed Sex and Gender Information Value Date Recorded Sex Assigned at Not on file Legal Sex Male 5:34 AM PRODUCTION ADMINISTRATIVE ASSISTANT Gender Identity Not on file Sexual Orientation Not on file documented as of this encounter Plan of Treatment Not on file documented as of this encounter Procedures Procedure Name Priority Date/Time Associated Diagnosis Comments CARDIOLOGY REPORT 12/22/2014 12: 00 AM CDT documented in this encounter Results * CARDIOLOGY REPORT (12/22/2014 12:00 AM CDT) Anatomical Region Laterality Modality Other Narrative 12/22/2014 12:00 AM CDT Ordered by an unspecified provider. Historical Provider [facility] ANISA MCGUIRE Final Result documented in this encounter Visit Diagnoses Not on filedocumented in this encounter Care Teams Emergency Services Professional Relationship Specialty Start Date End Date Olivier Puente MD [address] [facility] [address] [place] [address] PCP - General Family Medicine 02/10/19 Ubaldo Kilgore MD [address] [address] Plastic Surgery 04/10/24 documented as of this encounter
--- OUTSIDE RECORDS SUMMARY | 2025-02-08 11:53 | XMS_ITS | Clinical Summary ---
Author Organization [facility] (formerly [facility]) [facility] Address [address] [place] [address] Care Team Providers Care Mainframe Systems Engineer Name Role Phone Olivier Puente MD Primary Care Provider Ubaldo Kilgore MD Unavailable [phone] Allergies No known active allergies Medications glipiZIDE [...] total) by mouth every morning Active omega 0-dqh-wrp-fish oil 1,000 mg (120 mg-180 mg) capsuleIndicati [...] MOUTH EVERY DAY 90 tablet 2 12/27/19 25 Active LANTUS 100 unit/mL (3 mL) pen for injection INJECT 25 UNITS SUBCUTANEOUSLY EVERY EVENING 01/18/20 25 Active Active Problems Problem Noted Date Diagnosed Date Chest pressure 08/15/2024 Coronary atherosclerosis of [place] coronary yenny ry 08/15/2024 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 Stable. Assessment & Plan (09/06/2020 9:14 PM CASKET INSPECTOR): Chronic. Stable. No associated cardiomyopathy. Assessment & Plan (03/02/2020 2:25 PM CDT): Chronic. Stable. No associated cardiomyopathy. EKG today shows sinus bradycardia rate 53, first-degree AV block, left bundle branch block. Assessment & Plan (08/19/2019 2:50 PM CASKET INSPECTOR): Chronic. Stable. No intervention required. Assessment & Plan (04/14/2019 7:49 PM CDT): Stable. No intervention required. Assessment & Plan (03/25/2019 2:21 PM CDT): EKG today shows sinus bradycardia rate 55, first-degree AV block, left bundle branch block. History of coronary artery bypass surgery 2018 Assessment & Plan (03/21/2021 5:43 PM CDT): 2002, in [facility]. Assessment & Plan (09/06/2020 9:13 PM CASKET INSPECTOR): In 2002 in [place], [place]. Assessment & Plan (03/02/2020 2:25 PM CDT): In 2002 in [facility]. Assessment & Plan (08/19/2019 2:50 PM CASKET INSPECTOR): In 2002 in [place], [place]. Assessment & Plan (04/14/2019 7:50 PM CDT): In 2002 in [place], [place]. PSVT (paroxysmal supraventricular tachycardia) 0 02/10/2019 Assessment & Plan (03/21/2021 5:42 PM CDT): Toprol XL. Digoxin. No recurrence . Assessment & Plan (09/06/2020 9:14 PM CASKET INSPECTOR): Toprol XL. Digoxin. No recurrence. Assessment & Plan (03/01/2020 8:54 PM CDT): Toprol XL. Digoxin. No recurrence. Assessment & Plan (08/19/2019 2:51 PM CASKET INSPECTOR): Went to the [facility] and [place] with PSVT. Toprol-XL 50 mg p.o. daily, digoxin 0.125 mg daily. No recurrence of the PSVT. Assessment & Plan (04/14/2019 7:49 PM CDT): Zak went to [facility] brain CT and I with PSVT. The Toprol XL 50 mg p.o. Daily and digoxin 0.125 mg p.o. Daily. No recurrence of the PSVT. Assessment & Plan (03/24/2019 5:58 PM CDT): On 10/23/2007. Went to [facility]. No recurrence of PSVT. Toprol XL 50 mg p.o. Daily and digoxin 0.25 mg p.o. Daily. Heart murmur, systolic 02/12/2018 Assessment & Plan (03/21/2021 5:43 PM CDT): Echo Doppler 08/17/2018 showed normal ejection fraction. Aortic valve sclerosis but no stenosis. Mild AR. Assessment & Plan (09/06/2020 9:13 PM CASKET INSPECTOR): Echo Doppler 08/17/2018 showed normal ejection fraction. Mild aortic valve sclerosis but no stenosis. Mild AR. Assessment & Plan (03/01/2020 8:54 PM CDT): Echo Doppler 08/17/2018 showed normal ejection fraction. Mild aortic valve sclerosis but no stenosis. Mild aortic valve regurgitation. Assessment & Plan (08/19/2019 2:49 PM CASKET INSPECTOR): Echo 07/2018 showed normal ejection fraction. Mild [...] Atorvastatin. Assessment & Plan (09/06/2020 9:16 PM CASKET INSPECTOR): To the ostial ramus intermedius 11/17/2017. Repeat cardiac catheterization 04/07/2019, patent stent. Antiplatelet regimen. Aggressive risk factor modification. Assessment & Plan (03/01/2020 8:53 PM CDT): To the ostial ramus intermedius to 11/17/2017. Repeat cardiac catheterization 04/07/2019, patent stent. Antiplatelet regimen. Aggressive risk factor modification. Assessment & Plan (08/19/2019 2:48 PM CASKET INSPECTOR): To the ostial ramus intermedius to 11/17/2017. [...] (02/09/2019): Coronary artery bypass surgery 2003 in [facility]. JONAS to LAD, KERRI to ramus. Cardiac cath Dr. Navarro 03/12/2007. Medical treatment. Stable angina. Assessment & Plan (03/21/2021 5:38 PM CDT): Coronary artery bypass surgery 2003 in [facility]. JONAS to LAD, KERRI to ramus. Cardiac cath Dr. Navarro 03/12/2007. Medical treatment. Cardiac catheterization 10/30/2017 with stent insertion in the ostium of the ramus intermedius. Repeat cardiac catheterization 04/07/2019. Medical treatment was decided. Aspirin. Atorvastatin. Brilinta. Assessment & Plan (09/06/2020 9:12 PM CASKET INSPECTOR): Coronary artery bypass surgery 2002 in [facility]. JONAS to LAD, KERRI to ramus. [...] lately. Assessment & Plan (08/19/2019 2:46 PM CASKET INSPECTOR): Coronary artery bypass surgery 2003 in [facility]. JONAS to LAD, KERRI to ramus. [...] 3:11 PM CDT): Coronary artery bypass surgery 2003 in [facility]. JONAS to LAD, KERRI to ramus. [...] CDT): Coronary artery bypass surgery 2003 in [facility]. JONAS to LAD, KERRI to ramus. [...] 136/76. Assessment & Plan (09/07/2020 2:57 PM CASKET INSPECTOR): Blood pressure 122/66. Salt restriction. Continue the current regimen. Assessment & Plan (03/02/2020 2:24 PM CDT): Blood pressure 122/68. Salt restriction. Continue the current regimen. Assessment & Plan (08/19/2019 2:46 PM CASKET INSPECTOR): Blood pressure 122/60. Salt restriction. Continue the [...] 76. Assessment & Plan (09/07/2020 2:57 PM CASKET INSPECTOR): Low-fat low-cholesterol diet. Lipitor. 09/2018 the LDL was 79. In June 2020 the LDL was 76. Assessment & Plan (03/01/2020 8:52 PM CDT): Low-fat low-cholesterol diet. Lipitor 40 mg bedtime daily. On 04/07/2019 the LDL was 79. Assessment & Plan (08/19/2019 2:47 PM CASKET INSPECTOR): Low-fat low-cholesterol diet. 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) (Primary Dx) 02/06/2025 Orders Only [facility] Oncology [address] [place] [phone] Tan Harrell MD Exam for clinical research (Primary Dx) 01/31/2025 Orders Only [facility] ONCOLOGY Scanning, Provider 01/30/2025 12:30 PM CDT Infusion [facility] - Infusion [address] [place] [address] 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) (Primary Dx); Melanoma of face (HCC) 01/30/2025 11:30 AM CDT Office Visit [facility] Oncology [address] [place] [phone] Edgar Saini NP Melanoma of face (HCC) (Primary Dx); 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) 01/30/2025 10:30 AM CDT Lab [facility] Oncology Lab [address] [place] [phone] Melanoma of face (HCC); 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) 01/30/2025 10:15 AM CDT Lab [facility] - Lab Collection [address] [place] [address] Melanoma of face (HCC); 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) 01/12/2025 Orders Only [facility] Oncology [facility] [address] [place] [address] Tan Harrell MD 01/12/2025 Telephone [facility] Scheduling [address] [place] [address] Delilah Herr 01/09/2025 1:00 PM CDT Office Visit [facility] Dermatology [address] [place] [address] [address] [place] [address] Everette Lowry MD Malignant melanoma of unspecified part of face (HCC) (Primary Dx); Seborrheic keratosis 01/05/2025 8:00 AM CDT Infusion [facility] - Infusion [address] [facility] Floor [address] [place] [address] 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) (Primary Dx); Melanoma of face (HCC) 01/05/2025 7:00 AM CDT Lab [facility] - Lab Collection [facility] Floor [address] [place] [address] Melanoma of face (HCC); 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) 01/03/2025 Orders Only [facility] Oncology [address] [place] [address] [address] [place] [address] Tan Harrell MD 01/02/2025 10:40 AM CDT Office Visit [facility] Oncology [address] [place] [address] [address] [place] [address] Tan Harrell MD 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) Discharge Disposition: Discharge to home or self care 12/30/2024 Orders Only [facility] Oncology [address] [place] [address] [address] [place] [address] Tan Harrell MD Examination of participant in clinical trial (Primary Dx) 12/29/2024 6:59 AM CDT - 12/29/2024 11:59 PM CDT Hospital Encounter [facility] - MRI [facility] Floor [address] [place] [address] Melanoma of face (HCC); 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); 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) Discharge Disposition: Discharge to home or self care 12/29/2024 Telephone [facility] Oncology [address] [place] [address] [address] [place] [address] Tiki Cabezas RN 12/27/2024 Telephone [facility] Oncology [address] [place] [phone] Justin Horn CMA 12/23/2024 Telephone [facility] Oncology [address] [place] [address] Tiki Cabezas RN 12/23/2024 Orders Only [facility] Oncology [address] [place] [address] [address] [place] [address] Tan Harrell MD 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) (Primary Dx); Melanoma of face (HCC) 11/21/2024 9:20 AM CASKET INSPECTOR Office Visit [facility] Oncology [address] [place] [address] Tan Harrell MD Melanoma of face (HCC) (Primary Dx); 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) 11/21/2024 8:15 AM CASKET INSPECTOR Lab [facility] - Lab Collection [address] [place] [address] Melanoma of face (HCC); 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); Clinical trial participant 11/20/2024 Orders Only [facility] Oncology [address] [place] [address] Tan Harrell MD Clinical trial participant (Primary Dx) from Last 3 Months Immunizations Immunization Administration Dates Next Due Influenza, Quad, Adjuvantated, Intramuscular 06/2020 Influenza, Trivalent, High D ose, Split, Preservative Free, Intramuscular 09/04/2019,06/23/2018 Influenza, Trivalent, IM (MDV) 06/02/2013 Surgical History Surgery Date Site/Laterality Comments CORONARY ARTERY BYPASS GRAFT 09/28/2002 - 09/27/2003 APPENDECTOMY childhood CARDIAC CATHETERIZATION 2022 LUMBAR SPINE SURGERY 09/28/2020 - 09/27/2021 fusion CORONARY ANGIOPLASTY WITH STENT PLACEMENT 10/29/2017 - 11/25/2017 IMPRESSION: Successful stenting of the ostium of the ramus intermedius by using the 2 x 8 mm Synergy stent. US GUIDED BIOPSY LYMPH NODE SUPERFICIAL LEFT 12/21/2024 N/A Medical History Medical History Date Comments Coronary artery disease Benign hypertensive heart disease PSVT (paroxysmal supraventricular tachycardia) Stented coronary artery Heart murmur, systolic HLD (hyperlipidemia) HHD (hypertensive heart disease) DM (diabetes mellitus) (HCC) Bronchial asthma Stable angina Family History Medical History Relation Name Comments No Known Problems Father Heart attack Mother Relation Name Status Comments Father Mother Social History Tobacco Use Types Packs/Day Years [...] on file Legal Sex Male 5:34 AM CASKET INSPECTOR Gender Identity Not on file Sexual Orientation Not on file Obstetrics History Last Filed Vital Signs Vital Sign Reading [...] 01/05/2025 7:34 AM CDT Plan of Treatment Health Maintenance Due Date Last Done Comments Albumin Creatinine Ratio, Urine 1945 Depression Screening 1945 Hemoglobin A1C 1945 Dilated Eye Exam 1943 Foot Exam 1945 DTaP/Tdap/Td Vaccine (1 - Tdap) 1954 Hepatitis B Screening 1961 Pneumococcal vaccine 65+ (1 of 2 - PCV) 1962 Zoster Vaccine (1 of 2) 1962 Well Visit 65+ 2008 Influenza Vaccine (Season Ended) 2025 07/07/2020, 09/04/2019, 06/23/2018, Additional history exists Fall Risk Assessment 08/18/2025 08/18/2024 Lipid Panel 08/18/2025 08/18/2024, 01/26, 02/17/2022, Additional history exists eGFR 01/30/2026 01/30/2025, 12/27, 01/02/2025, Additional history exists Medical Devices Implanted Type Area Meteorologist In Charge Device Identifier Shelf Expiration Date Model / Serial / Lot [employer] Angio-Seal Vip 6fr Closere Device [id number] - [id number] Implanted:Qty: 1 on 04/06/2023 by Phill Navarro MD at [facility] [employer] 09/27/2023 [id number] / / [id number] [employer] System Closure Repair Femoral Artery Suture Mediated Perclose Prostyle 41240-34 - [id number] Implanted:Qty: 1 on 08/18/2024 by Phill Navarro MD at [facility] [employer] 04/27/2026 [id number] / / [id number] Procedures Procedure Name Priority Date/Time Associated Diagnosis [...] 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 node of neck (HCC) CARLAZARO ME CANCER SEEK + ADDITIONAL TESTS Routine 12/23/2024 12:17 PM CDT Melanoma of face (HCC) 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) [place] [id number]|2025-02-08 11:53:00|2025-02-08 11:52:00|XMS_ITS|BKG DAEMON|External Medical Summaries|[id number]|" Encounter Summary Created on: February 08, 2025 Junaid Avilez : 1945 Sex: Male Author Organization [facility] Facility Care Team Providers Care Mainframe Systems Engineer Name Role Phone Olivier Puente MD Primary Care Provider Ubaldo Kilgore MD Unavailable [phone] Encounter Details Date Type Department Care Team (Latest Contact Info) Description 02/15/2013 Orders Only [facility] Provider, Historical, MD [address] [place], [place] [id number] Social History Tobacco Use Types Packs/Day Years Used Date Smoking Tobacco: Never Assessed Sex and Gender Information Value Date Recorded Sex Assigned at Not on file Legal Sex Male 5:34 AM CASKET INSPECTOR Gender Identity Not on file Sexual Orientation Not on file documented as of this encounter Plan of Treatment Not on file documented as of this encounter Procedures Procedure Name Priority Date/Time Associated Diagnosis Comments CARDIOLOGY REPORT 02/16/2016 12: 00 AM CDT documented in this encounter Results * CARDIOLOGY REPORT (02/16/2016 12:00 AM CDT) Anatomical Region Laterality Modality Other Narrative 02/16/2016 12:00 AM CDT Ordered by an unspecified provider. Historical Provider [facility] PROCE DURES Final Result documented in this encounter Visit Diagnoses Not on filedocumented in this encounter Care Teams Mainframe Systems Engineer Relationship Specialty Start Date End Date Olivier Puente MD [address] [place] [address] PCP - General Family Medicine 02/10/19 Ubaldo Kilgore MD [address] [place] [address] Plastic Surgery 04/10/24 documented as of this encounter "
--- OUTSIDE RECORDS SUMMARY | 2025-02-08 11:53 | XMS_ITS | Encounter Summary ---
Author Organization [facility] Facility Care Team Providers Care Insole Tacker Name Role Phone Olivier Puente MD Primary Care Provider Ubaldo Kilgore MD Unavailable [phone] Encounter Details Date Type Department Care Team (Latest Contact Info) Description 09/12/2016 Orders Only [facility]INCON[facility] ProviderGiles MD [address] [place] [address] Social History Tobacco Use Types Packs/Day Years Used Date Smoking Tobacco: Never Assessed Sex and Gender Information Value Date Recorded Sex Assigned at Not on file Legal Sex Male 5:34 AM CHIEF ULTRASOUND TECHNOLOGIST Gender Identity Not on file Sexual Orientation Not on file documented as of this encounter Plan of Treatment Not on file documented as of this encounter Procedures Procedure Name Priority Date/Time Associated Diagnosis Comments CARDIOLOGY REPORT 09/12/2016 12: 00 AM CHIEF ULTRASOUND TECHNOLOGIST documented in this encounter Results * CARDIOLOGY REPORT (09/12/2016 12:00 AM CHIEF ULTRASOUND TECHNOLOGIST) Anatomical Region Laterality Modality Other Narrative 09/12/2016 12:00 AM CHIEF ULTRASOUND TECHNOLOGIST Ordered by an unspecified provider. Historical Provider [facility] ANISA MCGUIRE Final Result documented in this encounter Visit Diagnoses Not on filedocumented in this encounter Care Teams Insole Tacker Relationship Specialty Start Date End Date Olivier Puente MD [address] [facility] [address] [place] [address] PCP - General Family Medicine 02/10/19 Ubaldo Kilgore MD [address] [place] [address] Plastic Surgery 04/10/24 documented as of this encounter
--- OUTSIDE RECORDS SUMMARY | 2025-02-08 11:53 | XMS_ITS | Encounter Summary ---
Author Organization 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 us Historical Provider Final Res ult documented in this encounter Visit Diagnoses Not on filedocumented in this encounter Care Teams Software Test Manager Relationship Specialty Start Date End Date Olivier Puente MD [address] [facility] [address] [place] [address] PCP - General Family Medicine 02/10/19 Ubaldo Kilgore MD [address] [address] Plastic Surgery 04/10/24 documented as of this encounter
--- OUTSIDE RECORDS SUMMARY | 2025-02-08 11:53 | XMS_ITS | Encounter Summary ---
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 us Historical Provider Final Res ult documented in this encounter Visit Diagnoses Not on filedocumented in this encounter Care Teams Program Paraprofessional Relationship Specialty Start Date End Date Olivier Puente MD [address] [facility] [address] [place] [address] PCP - General Family Medicine 02/10/19 Ubaldo Kilgore MD [address] [address] Plastic Surgery 04/10/24 documented as of this encounter
--- OUTSIDE RECORDS SUMMARY | 2025-02-08 11:53 | XMS_ITS | Encounter Summary ---
Author Organization [facility] Facility Care Team Providers Care Director Ambulatory Name Role Phone Olivier Puente MD Primary Care Provider Ubaldo Kilgore MD Unavailable Encounter Details Date Type Department Care Team (Latest Contact Info) Description 11/24/2017 Orders Only [facility] CLINCON[facility] ProviderGiles MD [address] [place] [address] Social History Tobacco Use Types Packs/Day Years Used Date Smoking Tobacco: Never Assessed Sex and Gender Information Value Date Recorded Sex Assigned at Not on file Legal Sex Male 5:34 AM FLAP CURER Gender Identity Not on file Sexual Orientation Not on file documented as of this encounter Plan of Treatment Not on file documented as of this encounter Procedures Procedure Name Priority Date/Time Associated Diagnosis Comments SCAN - LABS 11/24/2017 12:00 AM FLAP CURER documented in this encounter Results * SCAN - LABS (11/24/2017 12:00 AM FLAP CURER) Narrative 11/24/2017 12:00 AM FLAP CURER Ordered by an unspecified provider. us Historical Provider Final Res ult documented in this encounter Visit Diagnoses Not on filedocumented in this encounter Care Teams Director Ambulatory Relationship Specialty Start Date End Date Olivier Puente MD [address] [facility] [address] [place] [address] PCP - General Family Medicine 02/10/19 Ubaldo Kilgore MD [address] [address] Plastic Surgery 04/10/24 documented as of this encounter
--- OUTSIDE RECORDS SUMMARY | 2025-02-08 11:53 | XMS_ITS | Encounter Summary ---
Author Organization [facility] Facility Care Team Providers Care Cost Reduction Engineer Name Role Phone Olivier Puente MD Primary Care Provider Ubaldo Kilgore MD Unavailable [phone] Encounter Details Date Type Department Care Team (Latest Contact Info) Description 11/22/2013 Orders Only [facility] CLINCON[facility] ProviderGiles MD [address] [place] [address] Social History Tobacco Use Types Packs/Day Years Used Date Smoking Tobacco: Never Assessed Sex and Gender Information Value Date Recorded Sex Assigned at Not on file Legal Sex Male 5:34 AM COMPUTED TOMOGRAPHY TECHNICIAN Gender Identity Not on file Sexual Orientation Not on file documented as of this encounter Plan of Treatment Not on file documented as of this encounter Procedures Procedure Name Priority Date/Time Associated Diagnosis Comments SCAN - LABS 11/22/2013 12:00 AM COMPUTED TOMOGRAPHY TECHNICIAN documented in this encounter Results * SCAN - LABS (11/22/2013 12:00 AM COMPUTED TOMOGRAPHY TECHNICIAN) Narrative 11/22/2013 12:00 AM COMPUTED TOMOGRAPHY TECHNICIAN Ordered by an unspecified provider. Historical Provider Final Res ult documented in this encounter Visit Diagnoses Not on filedocumented in this encounter Care Teams Cost Reduction Engineer Relationship Specialty Start Date End Date Olivier Puente MD [address] [facility] [address] [place] [address] PCP - General Family Medicine 02/10/19 Ubaldo Kilgore MD [address] [address] Plastic Surgery 04/10/24 documented as of this encounter
--- OUTSIDE RECORDS SUMMARY | 2025-02-08 11:53 | XMS_ITS | Encounter Summary ---
Author Organization [facility] Facility Care Team Providers Care Technologies Division Chair Name Role Phone Olivier Puente MD Primary Care Provider Ubaldo Kilgore MD Unavailable [phone] Encounter Details Date Type Department Care Team (Latest Contact Info) Description 02/19/2018 Orders Only [facility] CLINCONV ProviderGiles MD [address] [place] [address] Social History Tobacco Use Types Packs/Day Years Used Date Smoking Tobacco: Never Assessed Sex and Gender Information Value Date Recorded Sex Assigned at Not on file Legal Sex Male 5:34 AM TEMPERATURE CONTROL INSPECTOR Gender Identity Not on file Sexual Orientation Not on file documented as of this encounter Plan of Treatment Not on file documented as of this encounter Procedures Procedure Name Priority Date/Time Associated Diagnosis Comments SCAN - LABS 08/09/2018 12:00 AM TEMPERATURE CONTROL INSPECTOR documented in this encounter Results * SCAN - LABS (08/09/2018 12:00 AM TEMPERATURE CONTROL INSPECTOR) Narrative 08/09/2018 12:00 AM TEMPERATURE CONTROL INSPECTOR Ordered by an unspecified provider. us Historical Provider Final Res ult documented in this encounter Visit Diagnoses Not on filedocumented in this encounter Care Teams Technologies Division Chair Relationship Specialty Start Date End Date Olivier Puente MD [address] [facility] [address] [place] [address] PCP - General Family Medicine 02/10/19 Ubaldo Kilgore MD [address] [address] Plastic Surgery 04/10/24 documented as of this encounter
--- OUTSIDE RECORDS SUMMARY | 2025-02-08 11:53 | XMS_ITS | Encounter Summary ---
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 Gender Identity Not on file Sexual Orientation Not on file documented as of this encounter Plan of Treatment Not on file documented as of this encounter Procedures Procedure Name Priority Date/Time Associated Diagnosis Comments SCAN - PATHOLOGY 01/31/2025 2:42 PM CDT documented in this encounter Results * SCAN - PATHOLOGY (01/31/2025 2:42 PM CDT) us Provider Scanning Final Result documented in this encounter Visit Diagnoses Not on filedocumented in this encounter Care Teams Wellness Trainer Relationship Specialty Start Date End Date Olivier Puente MD [address] [facility] [address] [place] [address] PCP - General Family Medicine 02/10/19 Ubaldo Kilgore MD [address] [facility] [address] [place] [address] Plastic Surgery 04/10/24 documented as of this encounter
--- OUTSIDE RECORDS SUMMARY | 2025-02-08 11:53 | XMS_ITS | Encounter Summary ---
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) Social History Tobacco Use Types Packs/Day Years [...] on file Legal Sex Male 5:34 AM SISAL OPERATOR Gender Identity Not on file Sexual Orientation Not on file documented as of this encounter Plan of Treatment Not on file documented as of this encounter Visit Diagnoses Diagnosis 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)- Primary documented in this encounter Orders Appointment Requests Count Last Ordered Date Fi rst Ordered Date ONCBCN LAB APPOINTMENT 1 02/07/2025 documented in this encounter Care Teams Patient Office Rep Relationship Specialty Start Date End Date Olivier Puente MD [address] [facility] [address] [place] [address] PCP - General Family Medicine 02/10/19 Ubaldo Kilgore MD [address] [facility] [address] [place] [address] Plastic Surgery 04/10/24 documented as of this encounter
--- OUTSIDE RECORDS SUMMARY | 2025-02-08 11:53 | XMS_ITS | Encounter Summary ---
Author Organization [facility] Facility Care Team Providers Care Measurement Analyst Name Role Phone Olivier Puente MD Primary Care Provider Ubaldo Kilgore MD Unavailable [phone] Encounter Details Date Type Department Care Team (Latest Contact Info) Description 12/21/2013 Orders Only [facility]IN[facility] ProviderGiles MD [address] [place] [address] Social History Tobacco Use Types Packs/Day Years Used Date Smoking Tobacco: Never Assessed Sex and Gender Information Value Date Recorded Sex Assigned at Not on file Legal Sex Male 5:34 AM FINANCIAL PLANNING ASSISTANT Gender Identity Not on file Sexual Orientation Not on file documented as of this encounter Plan of Treatment Not on file documented as of this encounter Procedures Procedure Name Priority Date/Time Associated Diagnosis Comments CARDIOLOGY REPORT 09/04/2016 12: 00 AM FINANCIAL PLANNING ASSISTANT CARDIOLOGY REPORT 12/21/2013 12: 00 AM CDT documented in this encounter Results * CARDIOLOGY REPORT (09/04/2016 12:00 AM FINANCIAL PLANNING ASSISTANT) Anatomical Region Laterality Modality Other Narrative 09/04/2016 12:00 AM FINANCIAL PLANNING ASSISTANT Ordered by an unspecified provider. Historical Provider [facility] AN[facility] MCGUIRE Final Result * CARDIOLOGY REPORT (12/21/2013 12:00 AM CDT) Anatomical Region Laterality Modality Other Narrative 12/21/2013 12:00 AM CDT Ordered by an unspecified provider. Historical Provider [facility] AN[facility] MCGUIRE Final Result documented in this encounter Visit Diagnoses Not on filedocumented in this encounter Care Teams Measurement Analyst Relationship Specialty Start Date End Date Olivier Puente MD [address] [facility] [address] [place] [address] PCP - General Family Medicine 02/10/19 Ubaldo Kilgore MD [address] [facility] [address] [place] [address] Plastic Surgery 04/10/24 documented as of this encounter
--- OUTSIDE RECORDS SUMMARY | 2025-02-08 11:53 | XMS_ITS | Encounter Summary ---
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 Historical Provider Final Res ult documented in this encounter Visit Diagnoses Not on filedocumented in this encounter Care Teams Senior Estimator Relationship Specialty Start Date End Date Olivier Puente MD [address] [facility] [address] [place] [address] PCP - General Family Medicine 02/10/19 Ubaldo Kilgore MD [address] [facility] [address] [place] [address] Plastic Surgery 04/10/24 documented as of this encounter
--- OUTSIDE RECORDS SUMMARY | 2025-02-08 11:53 | XMS_ITS | Encounter Summary ---
Author Organization [facility] Facility Care Team Providers Care Plumbing Engineer Name Role Phone Olivier Puente MD Primary Care Provider Ubaldo Kilgore MD Unavailable [phone] Encounter Details Date Type Department Care Team (Latest Contact Info) Description 06/01/2018 Orders Only [facility] CLINCON[facility] ProviderGiles MD [address] [place] [address] Social History Tobacco Use Types Packs/Day Years Used Date Smoking Tobacco: Never Assessed Sex and Gender Information Value Date Recorded Sex Assigned at Not on file Legal Sex Male 5:34 AM SEED CLEANING MACHINE OPERATOR Gender Identity Not on file Sexual Orientation Not on file documented as of this encounter Plan of Treatment Not on file documented as of this encounter Procedures Procedure Name Priority Date/Time Associated Diagnosis Comments SCAN - LABS 08/24/2018 12:00 AM SEED CLEANING MACHINE OPERATOR documented in this encounter Results * SCAN - LABS (08/24/2018 12:00 AM SEED CLEANING MACHINE OPERATOR) Narrative 08/24/2018 12:00 AM SEED CLEANING MACHINE OPERATOR Ordered by an unspecified provider. us Historical Provider Final Res ult documented in this encounter Visit Diagnoses Not on filedocumented in this encounter Care Teams Plumbing Engineer Relationship Specialty Start Date End Date Olivier Puente MD [address] [facility] 120 [place] [address] PCP - General Family Medicine 02/10/19 Ubaldo Kilgore MD [address] [address] Plastic Surgery 04/10/24 documented as of this encounter
--- OUTSIDE RECORDS SUMMARY | 2025-02-08 11:53 | XMS_ITS | Encounter Summary ---
Author Organization [facility] Facility Care Team Providers Care Washateria Attendant Name Role Phone Olivier Puente MD Primary Care Provider Ubaldo Kilgore MD Unavailable [phone] Encounter Details Date Type Department Care Team (Latest Contact Info) Description 11/11/2017 Orders Only [facility] CLINCONV ProviderGiles MD [address] [place] [address] Social History Tobacco Use Types Packs/Day Years Used Date Smoking Tobacco: Never Assessed Sex and Gender Information Value Date Recorded Sex Assigned at Not on file Legal Sex Male 5:34 AM BLIND HOOKER Gender Identity Not on file Sexual Orientation Not on file documented as of this encounter Plan of Treatment Not on file documented as of this encounter Procedures Procedure Name Priority Date/Time Associated Diagnosis Comments CARDIOLOGY REPORT 11/11/2017 12: 00 AM BLIND HOOKER documented in this encounter Results * CARDIOLOGY REPORT (11/11/2017 12:00 AM BLIND HOOKER) Anatomical Region Laterality Modality Other Narrative 11/11/2017 12:00 AM BLIND HOOKER Ordered by an unspecified provider. Historical Provider [facility] ANISA MCGUIRE Final Result documented in this encounter Visit Diagnoses Not on filedocumented in this encounter Care Teams Washateria Attendant Relationship Specialty Start Date End Date Olivier Puente MD [address] [facility] [address] [place] [address] PCP - General Family Medicine 02/10/19 Ubaldo Kilgore MD [address] [place] [address] Plastic Surgery 04/10/24 documented as of this encounter
[2025-02-08 12:44] LABS: Alanine Aminotransferase 22 U/L (6-50); Albumin Level 4.1 g/dL (3.5-5.1); Alkaline Phosphatase 134 U/L (38-126); Anion Gap 7 mmol/L (4-12); Aspartate Amino Transferase 26 U/L (17-59); Bilirubin,Total 0.8 mg/dL (0.2-1.3); Blood Urea Nitrogen 21 mg/dL (9-20); Calcium 8.6 mg/dL (8.4-10.2); Carbon Dioxide 29 mmol/L (22-30); Chloride 103 mmol/L (98-107); Estimated Glomerular Filt Rate 50; Glucose 180 mg/dL (65-110); Potassium 4.7 mmol/L (3.4-5.0); Sodium 139 mmol/L (137-145)
[2025-02-08 12:56] LABS: Hemoglobin A1C 8.3 % (<5.7)
== END 2025-02-08 11:49 | disposition home or self-care (01) ==
PROVIDERS: PCP Family Medicine; Visit Provider Physician Assistant Medical
DX: E11.29 Type 2 diabetes mellitus with other diabetic kidney complication (principal); I13.10 Hypertensive heart and chronic kidney disease without heart failure, with stage 1 through stage 4 chronic kidney disease, or unspecified chronic kidney disease; N18.30 Chronic kidney disease, stage 3 unspecified
CPT/HCPCS: 36415; 80053; 83036

== ENCOUNTER 2025-06-09 11:11 | Outpatient (CLI) | payer OTHER, SELFPAY ==
[2025-06-09 12:07] LABS: Hematocrit 39.9 % (42.0-52.0); Hemoglobin 12.4 g/dL (14.0-18.0); Mean Corpuscular HGB Conc 31.1 g/dl (32-36); Mean Corpuscular Hemoglobin 28.5 pg (26-34); Mean Corpuscular Volume 91.7 fl (80-100); Platelet Count Result 209 k/mm3 (150-375); Red Blood Count 4.35 M/mm3 (4.6-6.20); White Blood Count 9.8 K/mm3 (4.5-10.0)
[2025-06-09 12:33] LABS: Alanine Aminotransferase 26 U/L (6-50); Albumin Level 4.2 g/dL (3.5-5.1); Alkaline Phosphatase 94 U/L (38-126); Anion Gap 10 mmol/L (4-12); Aspartate Amino Transferase 28 U/L (17-59); Bilirubin,Total 0.5 mg/dL (0.2-1.3); Blood Urea Nitrogen 20 mg/dL (9-20); Calcium 8.8 mg/dL (8.4-10.2); Carbon Dioxide 28 mmol/L (22-30); Chloride 102 mmol/L (98-107); Cholesterol 124 mg/dL (0-200); Estimated Glomerular Filt Rate 47; Glucose 165 mg/dL (65-110); HDL Direct 35 mg/dL; Potassium 5.0 mmol/L (3.4-5.0); Sodium 140 mmol/L (137-145); Total Protein 7.4 g/dL (6.3-8.2); Triglycerides 129 mg/dL (<150)
[2025-06-09 12:37] LABS: Hemoglobin A1C 6.7 % (<5.7)
[2025-06-09 12:44] LABS: MALB Creatinine Ratio 84.8 mg/g (0-30)
[2025-06-09 13:08] LABS: Prostate Specific Antigen 1.7 ng/mL (< OR = 4.0)
[2025-06-09 13:50] LABS: Thyroid Stimulating Hormone 3.860 uIU/mL (0.465-4.680)
== END 2025-06-09 11:12 | disposition home or self-care (01) ==
PROVIDERS: PCP Family Medicine; Visit Provider Physician Assistant Medical
DX: E11.29 Type 2 diabetes mellitus with other diabetic kidney complication (principal); Z00.00 Encounter for general adult medical examination without abnormal findings; I13.10 Hypertensive heart and chronic kidney disease without heart failure, with stage 1 through stage 4 chronic kidney disease, or unspecified chronic kidney disease; I25.708 Atherosclerosis of coronary artery bypass graft(s), unspecified, with other forms of angina pectoris; C43.9 Malignant melanoma of skin, unspecified; R53.83 Other fatigue; R35.1 Nocturia; I12.9 Hypertensive chronic kidney disease with stage 1 through stage 4 chronic kidney disease, or unspecified chronic kidney disease; N18.30 Chronic kidney disease, stage 3 unspecified; Z12.5 Encounter for screening for malignant neoplasm of prostate
CPT/HCPCS: 36415; 80053; 80061; 82043; 83036; 84153; 84443; 85027; G0103

== ENCOUNTER 2025-06-26 07:42 | Outpatient (CLI) | payer OTHER, SELFPAY ==
--- NOTE | ~2025-06-26 | US_ITS ---
EXAMINATION: US carotid duplex BI DATE: 06/26/2025 09:10 INDICATION: Retinal vein occlusion with subjective visual disturbance. Disturbance of skin sensation. TECHNIQUE: Grayscale, color Doppler, and pulsed Doppler images of the cervical carotid arteries were obtained. The degree of vessel stenosis is placed in one of the following categories: normal, <50%, 50-69%, >=70% but less than near- occlusion, near-occlusion, or total occlusion. Note that percent stenosis relative to normal distal artery lumen diameter is indirectly measured from velocity measurements as described by Hudson, et al. Radiology 2003; 229:340-346. COMPARISON: None. FINDINGS: RIGHT: The right common carotid artery (CCA) peak systolic velocity (PSV) is 112 cm/s. The right internal carotid artery (ICA) PSV is 61 cm/s. The right ICA end- diastolic velocity (EDV) is 13 cm/s. The right ICA/CCA PSV ratio is 0.8. Grayscale and color Doppler images yield an estimate of <50% diameter reduction from plaque in the ICA. The external carotid artery (ECA) PSV is 126 cm/s. There is antegrade flow in the right vertebral artery. LEFT: The left CCA PSV is 77 cm/s. The left ICA PSV is 56 cm/s. The left ICA EDV is 14 cm/s. The left ICA/CCA PSV ratio is 0.9. Grayscale and color Doppler images yield an estimate of <50% diameter reduction from plaque in the ICA. The ECA PSV is 108 cm/s. There is antegrade flow in the left vertebral artery. IMPRESSION: 1. <50% stenosis in the right internal carotid artery. 2. <50% stenosis in the left internal carotid artery. Reviewed, dictated and finalized at location A.
--- OUTSIDE RECORDS SUMMARY | 2025-06-26 07:47 | XMS_ITS | Clinical Summary ---
Author Organization [facility] Office Center Address [address] [place] [address] Care Team Providers Care Health Insurance Agent Name Role Phone Olivier Puente MD Primary Care Provider Ubaldo Kilgore MD Unavailable [phone] Allergies No known active allergies Medications metFORMIN (GLUCOPHAGE) 500 mg tablet Take 4 tablets (2,000 mg total) by mouth every evening Once daily Active aspirin 81 mg chewable tablet Take 1 tablet (81 mg total) by mouth every morning Active omega 9-xnx-fyk-fish oil 1,000 mg (120 mg-180 mg) capsule Take 1 capsule (1,000 mg total) by mouth every morning Active albuterol HFA (PROVENTIL HFA,VENTOLIN HFA,PROAIR HFA) 90 mcg/actuation inhaler Inhale 1 puff as needed 01/01/2018 Active Tradjenta 5 mg tablet Take 1 tablet (5 mg total) by mouth every morning 01/18/2022 Active BD Ultra-Fine Orig Pen Needle 29 gauge x 1/2 needle USE TO INJECT ONCE DAILY 12/05/2021 Active nitroglycerin (NITROSTAT) 0.[address] 1 TABLET UNDER TONGUE EVERY 5 MINS, UP TO 3 DOSES NEEDED FOR CHEST PAIN 25 tablet 3 04/27/2023 Active SEMGLEE-yfgn 100 unit/mL (3 mL) pen for injection Inject 25 Units under the skin nightly INJECT 25 UNITS (0.25 ML) UNDER THE SKIN EVERY NIGHT FOR 30 DAYS 03/04/2024 Active oxyCODONE (ROXICODONE) 5 mg immediate release tablet Take 1 tablet (5 mg total) by mouth every 4 (four) hours as needed for pain for up to 10 doses 10 tablet 04/21/2024 Active ezetimibe (ZETIA) 10 mg tablet Take 1 tablet (10 mg total) by mouth daily 90 tablet 3 09/27/2024 Active atorvastatin (LIPITOR) 80 mg tablet TAKE 1 TABLET BY MOUTH EVERY DAY 90 tablet 3 11/14/2024 Active glipiZIDE XL (GLUCOTROL XL) 10 mg 24 hr tablet Take 1 tablet (10 mg total) by mouth daily 02/15/2025 Active hydrOXYzine (ATARAX) 25 mg tablet Take 1 tablet (25 mg total) by mouth nightly as needed for anxiety (sleep) 30 tablet 03/20/2025 Active doxycycline (MONODOX) 100 mg capsuleIndicatio ns:Skin/Soft Tissue Infection Take 1 capsule (100 mg total) by mouth 2 (two) times a day 60 capsule 3 03/20/2025 Active losartan (COZAAR) 25 mg tablet Take 1 tablet (25 mg total) by mouth daily 30 tablet 03/20/2025 Active ranolazine ER (Ranexa) 500 mg 12 hr tablet Take 1 tablet (500 mg total) by mouth 2 (two) times a day 60 tablet 03/20/2025 Active metoprolol XL (TOPROL-XL) 25 mg extended release tablet TAKE 1 TABLET (25 MG TOTAL) BY MOUTH DAILY. 90 tablet 3 04/21/2025 Active isosorbide mononitrate ER (IMDUR) 30 mg 24 hr tablet TAKE 1 TABLET BY MOUTH EVERY MORNING 90 tablet 1 04/21/2025 Active triamterene-hydr oCHLOROthiazide 37.5-25 mg per tablet Take 0.5 tablet/capsu le by mouth daily 03/22/2025 Active finasteride (PROSCAR) 5 mg tablet Take 1 tablet (5 mg total) by mouth daily 30 tablet 11 04/27/2025 04/27/20 Active tamsulosin (FLOMAX) 0.4 mg extended release capsule Take 1 capsule (0.4 mg total) by mouth daily with dinner 30 capsule 11 04/27/2025 04/27/20 26 Active Hospital, Clinic, or Other Facility Administered Medication Ordered Dose Route Frequency Start Date End Date Status talimogene laherparepvec (IMLYGIC) 10exp8 (100 million) PFU/mL injection 1 mLIndications:malignan t melanoma 1 mL lesion Every 2 weeks 02/27/2025 08/13/2025 Active Active Problems Problem Noted Date Diagnosed Date Combined forms of age-related cataract of both e yes 05/15/2025 Assessment & Plan (05/15/2025 3:50 PM CDT): Not yet VS, will follow locally. Facial rash 05/15/2025 Assessment & Plan (05/15/2025 3:49 PM CDT): Admitted and treated (with acyclovir and doxycycline) for facial rash in February 2025, ddx was MEKi acneiform vs disseminated HSV. Seen inpatient in 03/08/25, reassuring exam. Today with normal/reassuring eye exam. No concern for intraocular inflammation or infection. Plan - Continue to follow with oncology, dermatology - Return PRN Bilateral lower extremity edema 03/16/2025 Assessment & Plan (03/20/2025 11:33 AM CDT): Duplex 6/17 negative for DVT Lymphadema therapy Lasix as tolerated Assessment & Plan (03/19/2025 11:36 AM CDT): Duplex 6/17 negative for DVT Lymphadema therapy Lasix as tolerated Assessment & Plan (03/18/2025 12:25 PM CDT): Duplex 6/17 negative for DVT Lymphadema therapy Lasix as tolerated Assessment & Plan (03/17/2025 7:15 PM CDT): Duplex 6/17 negative for DVT Lymphadema therapy Lasix as tolerated Assessment & Plan (03/16/2025 12:41 PM CDT): Duplex 6/17 negative for DVT Lymphadema therapy Lasix as tolerated Acute hypoxemic respiratory failure 03/14/2025 Assessment & Plan (03/20/2025 11:33 AM CDT): Not on oxygen at home -Chest CT 03/08: New 1.5 cm left upper lobe nodule with surrounding groundglass. Findings suggestive of chronic aspiration in the lung bases. - ProBNP, troponin WNL. EKG without significant changes - wean oxygen as tolerated - home oxygen eval - no need for supplemental oxygen Assessment & Plan (03/19/2025 11:36 AM CDT): Not on oxygen at home -Chest CT 03/08: New 1.5 cm left upper lobe nodule with surrounding groundglass. Findings suggestive of chronic aspiration in the lung bases. - ProBNP, troponin WNL. EKG without significant changes - wean oxygen as tolerated - home oxygen eval - no need for supplemental oxygen Assessment & Plan (03/18/2025 12:25 PM CDT): Not on oxygen at home -Chest CT 03/08: New 1.5 cm left upper lobe nodule with surrounding groundglass. Findings suggestive of chronic aspiration in the lung bases. - ProBNP, troponin WNL. EKG without significant changes - wean oxygen as tolerated - home oxygen eval on discharge Assessment & Plan (03/17/2025 7:15 PM CDT): Not on oxygen at home -Chest CT 03/08: New 1.5 cm left upper lobe nodule with surrounding groundglass. Findings suggestive of chronic aspiration in the lung bases. - ProBNP, troponin WNL. EKG without significant changes - wean oxygen as tolerated - home oxygen eval on discharge Assessment & Plan (03/16/2025 12:40 PM CDT): Not on oxygen at home -Chest CT 03/08: New 1.5 cm left upper lobe nodule with surrounding groundglass. Findings suggestive of chronic aspiration in the lung bases. - ProBNP, troponin WNL. EKG without significant changes - wean oxygen as tolerated - home oxygen eval on discharge Assessment & Plan (03/15/2025 1:36 PM CDT): Not on oxygen at home -Chest CT 6/11: New 1.5 cm left upper lobe nodule with surrounding groundglass. Findings suggestive of chronic aspiration in the lung bases. - ProBNP, troponin WNL. EKG without significant changes - wean oxygen as tolerated - home oxygen eval on discharge Assessment & Plan (03/14/2025 12:53 PM CDT): Not on oxygen at home -Chest CT 03/08: New 1.5 cm left upper lobe nodule with surrounding groundglass. Findings suggestive of chronic aspiration in the lung bases. - ProBNP, troponin WNL. EKG without significant changes - wean oxygen as tolerated - home oxygen eval on discharge Gross hematuria 03/13/2025 Assessment & Plan (03/20/2025 11:33 AM CDT): Patient developed urinary retention 6/13 night s/p straight cath yielding 1 L output. Later he was found to have blood tinged urine without urinary retention. On 03/12 patient passed bloody urine with blood clots. -CT urogram: normal apperance of the kidneys, ureters, and urinary bladder -flomax + finasteride - outpatient cystoscopy - hematuria resolved. Assessment & Plan (03/19/2025 11:36 AM CDT): Patient developed urinary retention 6/13 night s/p straight cath yielding 1 L output. Later he was found to have blood tinged urine without urinary retention. On 03/12 patient passed bloody urine with blood clots. -CT urogram: normal apperance of the kidneys, ureters, and urinary bladder -flomax + finasteride - outpatient cystoscopy - hematuria resolved. Assessment & Plan (03/18/2025 12:25 PM CDT): Patient developed urinary retention 6/13 night s/p straight cath yielding 1 L output. Later he was found to have blood tinged urine without urinary retention. On 03/12 patient passed bloody urine with blood clots. -CT urogram: normal apperance of the kidneys, ureters, and urinary bladder -flomax + finasteride - outpatient cystoscopy - hematuria resolved. Assessment & Plan (03/17/2025 7:15 PM CDT): Patient developed urinary retention 6/ night s/p straight cath yielding 1 L output. Later he was found to have blood tinged urine without urinary retention. On 03/12 patient passed bloody urine with blood clots. -CT urogram: normal apperance of the kidneys, ureters, and urinary bladder -flomax + finasteride - outpatient cystoscopy - hematuria resolved. Assessment & Plan (03/16/2025 12:40 PM CDT): Patient developed urinary retention 6/ night s/p straight cath yielding 1 L output. Later he was found to have blood tinged urine without urinary retention. On 03/12 patient passed bloody urine with blood clots. -CT urogram: normal apperance of the kidneys, ureters, and urinary bladder -flomax + finasteride - outpatient cystoscopy - hematuria resolved. Assessment & Plan (03/15/2025 1:36 PM CDT): Patient developed urinary retention 6/ night s/p straight cath yielding 1 L output. Later he was found to have blood tinged urine without urinary retention. On 03/12 patient passed bloody urine with blood clots. -CT urogram: normal apperance of the kidneys, ureters, and urinary bladder -flomax + finasteride - outpatient cystoscopy - hematuria resolved. Assessment & Plan (03/14/2025 11:41 AM CDT): Patient developed urinary retention 6/ night s/p straight cath yielding 1 L output. Later he was found to have blood tinged urine without urinary retention. On 03/12 patient passed bloody urine with blood clots. -CT urogram: normal apperance of the kidneys, ureters, and urinary bladder -flomax + finasteride - outpatient cystoscopy - hematuria resolved. Assessment & Plan (03/13/2025 10:51 PM CDT): Patient developed urinary retention 6/13 night s/p straight cath yielding 1 L output. Later he was found to have blood tinged urine without urinary retention. On 03/12 patient passed bloody urine with blood clots. Urine cleared since then and bladder scan showed no post-void retention Work-up: -UA: RBC>50, Blood 3+, trace bacteria -CT urogram: normal apperance of the kidneys, ureters, and urinary bladder -Urine and blood adenovirus and BK virus in process Plan: -Continue bladder scan q6h -Started flomax 0.4 mg daily + finasteride 5 mg daily given prostate enlargement on the imaging. -No need for smith or CBI per urology -Need outpatient cystoscopy Urinary retention 03/13/2025 Assessment & Plan (03/20/2025 11:33 AM CDT): Patient developed urinary retention 6/13 night s/p straight cath yielding 1 L output. Later he was found to have blood tinged urine without urinary retention. On 03/12 patient passed bloody urine with blood clots. -CT urogram: normal apperance of the kidneys, ureters, and urinary bladder -flomax + finasteride - outpatient cystoscopy - hematuria resolved. Assessment & Plan (03/19/2025 11:36 AM CDT): Patient developed urinary retention 6/13 night s/p straight cath yielding 1 L output. Later he was found to have blood tinged urine without urinary retention. On 03/12 patient passed bloody urine with blood clots. -CT urogram: normal apperance of the kidneys, ureters, and urinary bladder -flomax + finasteride - outpatient cystoscopy - hematuria resolved. Assessment & Plan (03/18/2025 12:25 PM CDT): Patient developed urinary retention 6/13 night s/p straight cath yielding 1 L output. Later he was found to have blood tinged urine without urinary retention. On 03/12 patient passed bloody urine with blood clots. -CT urogram: normal apperance of the kidneys, ureters, and urinary bladder -flomax + finasteride - outpatient cystoscopy - hematuria resolved. Assessment & Plan (03/17/2025 7:15 PM CDT): Patient developed urinary retention 6/13 night s/p straight cath yielding 1 L output. Later he was found to have blood tinged urine without urinary retention. On 03/12 patient passed bloody urine with blood clots. -CT urogram: normal apperance of the kidneys, ureters, and urinary bladder -flomax + finasteride - outpatient cystoscopy - hematuria resolved. Assessment & Plan (03/16/2025 12:40 PM CDT): Patient developed urinary retention 6/13 night s/p straight cath yielding 1 L output. Later he was found to have blood tinged urine without urinary retention. On 03/12 patient passed bloody urine with blood clots. -CT urogram: normal apperance of the kidneys, ureters, and urinary bladder -flomax + finasteride - outpatient cystoscopy - hematuria resolved. Assessment & Plan (03/15/2025 1:36 PM CDT): Patient developed urinary retention 6/13 night s/p straight cath yielding 1 L output. Later he was found to have blood tinged urine without urinary retention. On 03/12 patient passed bloody urine with blood clots. -CT urogram: normal apperance of the kidneys, ureters, and urinary bladder -flomax + finasteride - outpatient cystoscopy - hematuria resolved. Assessment & Plan (03/14/2025 11:41 AM CDT): Patient developed urinary retention 6/13 night s/p straight cath yielding 1 L output. Later he was found to have blood tinged urine without urinary retention. On 03/12 patient passed bloody urine with blood clots. -CT urogram: normal apperance of the kidneys, ureters, and urinary bladder -flomax + finasteride - outpatient cystoscopy - hematuria resolved. Assessment & Plan (03/13/2025 10:51 PM CDT): Patient developed urinary retention 6/13 night s/p straight cath yielding 1 L output. Later he was found to have blood tinged urine without urinary retention. On 03/12 patient passed bloody urine with blood clots. Urine cleared since then and bladder scan showed no post-void retention Work-up: -UA: RBC>50, Blood 3+, trace bacteria -CT urogram: normal apperance of the kidneys, ureters, and urinary bladder -Urine and blood adenovirus and BK virus in process Plan: -Continue bladder scan q6h -Started flomax 0.4 mg daily + finasteride 5 mg daily given prostate enlargement on the imaging. -No need for smith or CBI per urology -Need outpatient cystoscopy Painless hematuria 03/12/2025 Assessment & Plan (03/20/2025 11:33 AM CDT): Patient developed urinary retention 6/13 night s/p straight cath yielding 1 L output. Later he was found to have blood tinged urine without urinary retention. On 03/12 patient passed bloody urine with blood clots. -CT urogram: normal apperance of the kidneys, ureters, and urinary bladder -flomax + finasteride - outpatient cystoscopy - hematuria resolved. Assessment & Plan (03/19/2025 11:36 AM CDT): Patient developed urinary retention 6/13 night s/p straight cath yielding 1 L output. Later he was found to have blood tinged urine without urinary retention. On 03/12 patient passed bloody urine with blood clots. -CT urogram: normal apperance of the kidneys, ureters, and urinary bladder -flomax + finasteride - outpatient cystoscopy - hematuria resolved. Assessment & Plan (03/18/2025 12:25 PM CDT): Patient developed urinary retention 6/13 night s/p straight cath yielding 1 L output. Later he was found to have blood tinged urine without urinary retention. On 03/12 patient passed bloody urine with blood clots. -CT urogram: normal apperance of the kidneys, ureters, and urinary bladder -flomax + finasteride - outpatient cystoscopy - hematuria resolved. Assessment & Plan (03/17/2025 7:15 PM CDT): Patient developed urinary retention 6/13 night s/p straight cath yielding 1 L output. Later he was found to have blood tinged urine without urinary retention. On 03/12 patient passed bloody urine with blood clots. -CT urogram: normal apperance of the kidneys, ureters, and urinary bladder -flomax + finasteride - outpatient cystoscopy - hematuria resolved. Assessment & Plan (03/16/2025 12:40 PM CDT): Patient developed urinary retention 6/13 night s/p straight cath yielding 1 L output. Later he was found to have blood tinged urine without urinary retention. On 03/12 patient passed bloody urine with blood clots. -CT urogram: normal apperance of the kidneys, ureters, and urinary bladder -flomax + finasteride - outpatient cystoscopy - hematuria resolved. Assessment & Plan (03/15/2025 1:36 PM CDT): Patient developed urinary retention 6/ night s/p straight cath yielding 1 L output. Later he was found to have blood tinged urine without urinary retention. On 03/12 patient passed bloody urine with blood clots. -CT urogram: normal apperance of the kidneys, ureters, and urinary bladder -flomax + finasteride - outpatient cystoscopy - hematuria resolved. Assessment & Plan (03/14/2025 11:41 AM CDT): Patient developed urinary retention 6/ night s/p straight cath yielding 1 L output. Later he was found to have blood tinged urine without urinary retention. On 03/12 patient passed bloody urine with blood clots. -CT urogram: normal apperance of the kidneys, ureters, and urinary bladder -flomax + finasteride - outpatient cystoscopy - hematuria resolved. Assessment & Plan (03/13/2025 10:51 PM CDT): Patient developed urinary retention 6/ night s/p straight cath yielding 1 L output. Later he was found to have blood tinged urine without urinary retention. On 03/12 patient passed bloody urine with blood clots. Urine cleared since then and bladder scan showed no post-void retention Work-up: -UA: RBC>50, Blood 3+, trace bacteria -CT urogram: normal apperance of the kidneys, ureters, and urinary bladder -Urine and blood adenovirus and BK virus in process Plan: -Continue bladder scan q6h -Started flomax 0.4 mg daily + finasteride 5 mg daily given prostate enlargement on the imaging. -No need for smith or CBI per urology -Need outpatient cystoscopy Assessment & Plan (03/12/2025 2:59 PM CDT): Patient developed urinary retention 03/10 night s/p straight cath yielding 1 L output. Later he was found to have blood tinged urine without urinary retention. On 03/12 patient passed bloody urine with blood clots. Urine cleared since then and bladder scan showed no post-void retention Work-up: -UA: RBC>50, Blood 3+, trace bacteria Plan: -Urology consulted, recommended CT urogram -Continue bladder scan q6h HTN (hypertension) 03/09/2025 Assessment & Plan (03/20/2025 11:33 AM CDT): After hypotension, home BP meds were gradually restarted. Assessment & Plan (03/19/2025 11:36 AM CDT): After hypotension, home BP meds were gradually restarted. Assessment & Plan (03/18/2025 12:25 PM CDT): After hypotension, home BP meds were gradually restarted. Assessment & Plan (03/17/2025 7:15 PM CDT): After hypotension, home BP meds were gradually restarted. Assessment & Plan (03/16/2025 12:40 PM CDT): After hypotension, home BP meds were gradually restarted. Assessment & Plan (03/15/2025 1:36 PM CDT): After hypotension, home BP meds were gradually restarted. Assessment & Plan (03/14/2025 11:57 AM CDT): After hypotension, home BP meds were gradually restarted. Assessment & Plan (03/13/2025 6:13 PM CDT): ACT was called for hypotension on 03/08 and he was transferred to BMT ICU. Did not need pressors and was fluid responsive. BP meds held during hypotensive episode but then gradually resumed. -See BP meds in CAD discussion Assessment & Plan (03/12/2025 2:59 PM CDT): ACT was called for hypotension on 03/08 and he was transferred to BMT ICU. Did not need pressors and was fluid responsive. BP meds held during hypotensive episode but then gradually resumed. -See BP meds in CAD discussion Assessment & Plan (03/11/2025 7:51 PM CDT): ACT was called for hypotension on 03/08 and he was transferred to BMT ICU. Did not need pressors and was fluid responsive. -Re-started on isosorbide, losartan and metoprolol -Holding ranexa 1000 BID until able to tolerate Assessment & Plan (03/10/2025 10:33 PM CDT): ACT was called for hypotension on 03/08 and he was transferred to BMT ICU. Did not need pressors and was fluid responsive. -Re-started on isosorbide, losartan and metoprolol today -Holding ranexa 1000 BID until able to tolerate Assessment & Plan (03/09/2025 1:45 PM CDT): Hx HTN, home meds metop, losartan and isosorbide -holding metop due to bradycardia in 40-50's -holding losartan due to SUDHIR -immediate release isosorbide started 03/09 Disseminated herpes simplex 03/08/2025 Assessment & Plan (03/20/2025 11:33 AM CDT): Presented with disseminated rash, generalized swelling and worsening shortness of breath after TVEC injection 02/27 and had progressively worsening symptoms leading to admission. Rash 1 week after TVEC injection, assumed to be disseminated herpes simplex. -HIV, VZV, HSV, Cryptococcal antigen, blasto, CMV, HSV (both blood and lesion), VZV negative, Wound cultures positive for mixed moshe, pseudomonas putida and klebsiella -MRI brain 03/10: no acute findings -acyclovir 650 mg q12h (03/07- 03/15) -evaluated by derm, doxycycline 100 mg BID (03/10- p) for acneiform eruption. Plan to continue for 3-4 months into his treatment with the meki if we are restating Assessment & Plan (03/19/2025 11:36 AM CDT): Presented with disseminated rash, generalized swelling and worsening shortness of breath after TVEC injection 02/27 and had progressively worsening symptoms leading to admission. Rash 1 week after TVEC injection, assumed to be disseminated herpes simplex. -HIV, VZV, HSV, Cryptococcal antigen, blasto, CMV, HSV (both blood and lesion), VZV negative, Wound cultures positive for mixed moshe, pseudomonas putida and klebsiella -MRI brain 03/10: no acute findings -acyclovir 650 mg q12h (03/07- 03/15) -evaluated by derm, doxycycline 100 mg BID (03/10- p) for acneiform eruption. Plan to continue for 3-4 months into his treatment with the meki if we are restating Assessment & Plan (03/18/2025 12:25 PM CDT): Presented with disseminated rash, generalized swelling and worsening shortness of breath after TVEC injection 02/27 and had progressively worsening symptoms leading to admission. Rash 1 week after TVEC injection, assumed to be disseminated herpes simplex. -HIV, VZV, HSV, Cryptococcal antigen, blasto, CMV, HSV (both blood and lesion), VZV negative, Wound cultures positive for mixed moshe, pseudomonas putida and klebsiella -MRI brain 03/10: no acute findings -acyclovir 650 mg q12h (03/07- 03/15) -evaluated by derm, doxycycline 100 mg BID (03/10- p) for acneiform eruption. Plan to continue for 3-4 months into his treatment with the meki if we are restating Assessment & Plan (03/17/2025 7:15 PM CDT): Presented with disseminated rash, generalized swelling and worsening shortness of breath after TVEC injection 02/27 and had progressively worsening symptoms leading to admission. Rash 1 week after TVEC injection, assumed to be disseminated herpes simplex. -HIV, VZV, HSV, Cryptococcal antigen, blasto, CMV, HSV (both blood and lesion), VZV negative, Wound cultures positive for mixed moshe, pseudomonas putida and klebsiella -MRI brain 03/10: no acute findings -acyclovir 650 mg q12h (03/07- 03/15) -evaluated by derm, doxycycline 100 mg BID (03/10- p) for acneiform eruption. Plan to continue for 3-4 months into his treatment with the meki if we are restating Assessment & Plan (03/16/2025 12:40 PM CDT): Presented with disseminated rash, generalized swelling and worsening shortness of breath after TVEC injection 02/27 and had progressively worsening symptoms leading to admission. Rash 1 week after TVEC injection, assumed to be disseminated herpes simplex. -HIV, VZV, HSV, Cryptococcal antigen, blasto, CMV, HSV (both blood and lesion), VZV negative, Wound cultures positive for mixed moshe, pseudomonas putida and klebsiella -MRI brain 03/10: no acute findings -acyclovir 650 mg q12h (03/07- 03/15) -evaluated by derm, doxycycline 100 mg BID (03/10- p) for acneiform eruption. Plan to continue for 3-4 months into his treatment with the meki if we are restating Assessment & Plan (03/15/2025 1:45 PM CDT): Presented with disseminated rash, generalized swelling and worsening shortness of breath after TVEC injection 02/27 and had progressively worsening symptoms leading to admission. Rash 1 week after TVEC injection, assumed to be disseminated herpes simplex. -HIV, VZV, HSV, Cryptococcal antigen, blasto, CMV, HSV (both blood and lesion), VZV negative, Wound cultures positive for mixed moshe, pseudomonas putida and klebsiella -MRI brain 03/10: no acute findings -acyclovir 650 mg q12h (03/07- 03/15) -evaluated by derm, doxycycline 100 mg BID (03/10- p) for acneiform eruption. Plan to continue for 3-4 months into his treatment with the meki if we are restating Assessment & Plan (03/14/2025 12:53 PM CDT): Presented with disseminated rash, generalized swelling and worsening shortness of breath after TVEC injection 02/27 and had progressively worsening symptoms leading to admission. Rash 1 week after TVEC injection, likely disseminated herpes simplex. -HIV, VZV, HSV, Cryptococcal antigen, blasto, CMV, HSV (both blood and lesion), VZV negative, Wound cultures positive for mixed moshe, pseudomonas putida and klebsiella -MRI brain 03/10: no acute findings -acyclovir 650 mg q12h (03/07- p) -Dermatology following: Started doxycycline 100 mg BID (03/10- p) for acneiform eruption Assessment & Plan (03/13/2025 10:51 PM CDT): Presented with a chief complaint of disseminated rash, generalized swelling and worsening shortness of breath after TVEC injection 02/27 with derm onc and has had progressively worsening symptoms since. He now has erythematous papular rash to the chest and abdomen, scalp. Generalized Swelling including face , hands, legs and SOB , wheezing started 2 days ago. Denies pain, itching, discharge with rash. Denies fevers, chills, confusion. Given the timing of patient's rash appearance which occurred 1 week after TVEC injection, the most likely cause is disseminated herpes simplex. For patient's SOB, differential includes aspiration vs deconditioning. Patient's rash improved after starting acyclovir Work-up: -HIV, VZV, HSV, Cryptococcal antigen, blasto, CMV, HSV (both blood and lesion), VZV negative -Wound cultures positive for mixed moshe, pseudomonas putida and klebsiella -Chest CT wo contrast 03/08: New 1.5 cm left upper lobe nodule with surrounding groundglass. There are calcified pulmonary granulomata, as well as additional dependent calcifications with areas of reticulation, bronchial wall thickening, ground-glass opacification, and consolidation which likely reflect chronic aspiration. -MRI brain 03/10: no acute findings. CT head negative -ProBNP, troponin WNL. EKG without significant changes Plan: -Continue acyclovir 650 mg q12h (03/07-) -Currently holding mektovi until tolerability is assessed. Planning to restart in the hospital and monitor side effects before discharge -Dermatology following: Started doxycycline 100 mg BID (03/10-) for acneiform eruption, also started mupirocin ointment to nose tid prn -Wean oxygen as tolerated Assessment & Plan (03/12/2025 2:59 PM CDT): Presented with a chief complaint of disseminated rash, generalized swelling and worsening shortness of breath after TVEC injection 02/27 with derm onc and has had progressively worsening symptoms since. He now has erythematous papular rash to the chest and abdomen, scalp. Generalized Swelling including face , hands, legs and SOB , wheezing started 2 days ago. Denies pain, itching, discharge with rash. Denies fevers, chills, confusion. Given the timing of patient's rash appearance which occurred 1 week after TVEC injection, the most likely cause is disseminated herpes simplex. However, other etiologies also need to be ruled out. For patient's SOB, differential includes pulmonary HSV infection, asthma exacerbation, new CHF Work-up: -HIV, VZV, HSV, Cryptococcal antigen, blasto, CMV, HSV (both blood and lesion), VZV negative -Wound cultures positive for mixed moshe, pseudomonas putida and klebsiella -Chest CT wo contrast 03/08: New 1.5 cm left upper lobe nodule with surrounding groundglass. There are calcified pulmonary granulomata, as well as additional dependent calcifications with areas of reticulation, bronchial wall thickening, ground-glass opacification, and consolidation which likely reflect chronic aspiration. -MRI brain 03/10: no acute findings. CT head negative -ProBNP, troponin WNL. EKG without significant changes Plan: -Continue acyclovir 650 mg q12h -Currently holding mektovi until tolerability is assessed. Planning to restart in the hospital and monitor side effects before discharge -Dermatology following: Started doxycycline 100 mg BID (03/10-) for acneiform eruption, also started mupirocin ointment to nose tid prn Assessment & Plan (03/11/2025 7:51 PM CDT): Presented with a chief complaint of disseminated rash, generalized swelling and worsening shortness of breath after TVEC injection 02/27 with derm onc and has had progressively worsening symptoms since. He now has erythematous papular rash to the chest and abdomen, scalp. Generalized Swelling including face , hands, legs and SOB , wheezing started 2 days ago. Denies pain, itching, discharge with rash. Denies fevers, chills, confusion. Given the timing of patient's rash appearance which occurred 1 week after TVEC injection, the most likely cause is disseminated herpes simplex. However, other etiologies also need to be ruled out. For patient's SOB, differential includes pulmonary HSV infection, asthma exacerbation, new CHF Work-up: -VZV, HSV negative, Fungal serologies negative -Cryptococcal antigen, blasto and CMV pending -Wound cultures positive for mixed moshe and klebsiella -Chest CT wo contrast 03/08: New 1.5 cm left upper lobe nodule with surrounding groundglass. There are calcified pulmonary granulomata, as well as additional dependent calcifications with areas of reticulation, bronchial wall thickening, ground-glass opacification, and consolidation which likely reflect chronic aspiration. -MRI brain 03/10: no acute findings. CT head negative -ProBNP, troponin WNL. EKG without significant changes Plan: -Continue acyclovir 650 mg q12h -Currently holding mektovi until tolerability is assessed. Planning to restart in the hospital and monitor side effects before discharge -Dermatology following: Started doxycycline 100 mg BID for acneiform eruption, mupirocin ointment to nose tid prn Assessment & Plan (03/10/2025 8:07 PM CDT): Presented with a chief complaint of disseminated rash, generalized swelling and worsening shortness of breath after TVEC injection 02/27 with derm onc and has had progressively worsening symptoms since. He now has erythematous papular rash to the chest and abdomen, scalp. Generalized Swelling including face , hands, legs and SOB , wheezing started 2 days ago. Denies pain, itching, discharge with rash. Denies fevers, chills, confusion. Given the timing of patient's rash appearance which occurred 1 week after TVEC injection, the most likely cause is disseminated herpes simplex. However, other etiologies also need to be ruled out. For patient's SOB, differential includes pulmonary HSV infection, asthma exacerbation, new CHF Work-up: -VZV, HSV negative, Fungal serologies negative -Cryptococcal antigen, blasto and CMV pending -Wound cultures positive for mixed moshe and klebsiella -Chest CT wo contrast 03/08: New 1.5 cm left upper lobe nodule with surrounding groundglass. There are calcified pulmonary granulomata, as well as additional dependent calcifications with areas of reticulation, bronchial wall thickening, ground-glass opacification, and consolidation which likely reflect chronic aspiration. -CT head negative -ProBNP, troponin WNL. EKG without significant changes Plan: -Continue acyclovir 650 mg q12h -Oncology recommended for non-urgent MRI brain. Currently holding mektovi until tolerability is assessed -Dermatology following: Start doxycycline 100 mg BID for acneiform eruption Assessment & Plan (03/08/2025 5:19 PM CDT): Presented with a chief complaint of disseminated rash, generalized swelling and worsening shortness of breath after TVEC injection 02/27 with derm onc and has had progressively worsening symptoms since. He now has erythematous papular rash to the chest and abdomen, scalp. Generalized Swelling including face , hands, legs and SOB , wheezing started 2 days ago. Denies pain, itching, discharge with rash. Denies fevers, chills, confusion. Given the timing of patient's rash appearance which occurred 1 week after TVEC injection, the most likely cause is disseminated herpes simplex. However, other etiologies also need to be ruled out. For patient's SOB, differential includes pulmonary HSV infection, asthma exacerbation, new CHF Work-up: -VZV, HSV, bacterial stain/culture of facial lesion in process -BCx, serum HSV in process -Chest CT wo contrast 03/08: New 1.5 cm left upper lobe nodule with surrounding groundglass. There are calcified pulmonary granulomata, as well as additional dependent calcifications with areas of reticulation, bronchial wall thickening, ground-glass opacification, and consolidation which likely reflect chronic aspiration. -ProBNP, troponin WNL. EKG without significant changes Plan: -Continue acyclovir 650 mg q12h -Onc, Derm and ophtho consulted, appreciate recs -In discussion with onc about possible means to evaluate [employer] involvement of HSV Assessment & Plan (03/09/2025 1:43 PM CDT): Disseminated rash, generalized swelling ISO of treatment for metastatic melanoma with Binimetinib + TVEC (which is a modified herpes simplex virus treatment) Per package inert, TVEC has known side of herpetic infection, including disseminated HSV, immune mediated events (vasculitis, pneumonitis, glomerulonephritis, worsening psoriasis), fatigue, chills, pyrexia, influenza like illness, N/V/D, myalgias/arthralgias, MARAVILLA and dizziness. No documentation of edema or third spacing however. -Continues on treatment dose acyclovir BID -Derm consulted, appreciate recs -Optho consulted, appreciate recs Assessment & Plan (03/08/2025 12:55 AM CDT): Presented with a chief complaint of disseminated rash, generalized swelling and worsening shortness of breath after TVEC injection 02/27 with derm onc and has had progressively worsening symptoms since. He now has erythematous papular rash to the chest and abdomen, scalp. Generalized Swelling including face , hands, legs and SOB , wheezing started 2 days ago. Denies pain, itching, discharge with rash. Denies fevers, chills, confusion. Impression: Disseminated herpes simplex Plan -Start acyclovir -Contact precautions -Lasix x1 for anasarca Unsteady gait 03/08/2025 Assessment & Plan (03/08/2025 3:11 PM CDT): New onset ISO herpetic appearing rash, anasarca -Agree with CT head with low threshold for BMRI and further evaluation. DDX herpetic encephalopathy vs disease vs cva Sepsis 03/08/2025 Assessment & Plan (03/20/2025 11:33 AM CDT): hypotension on 03/08 with AMS and tachypnea, required monitoring in the ICU TTE showed LVEF of 45-50%. Empiric cefepime (03/08- 03/14), s/p linezolid (03/08-03/12) Assessment & Plan (03/19/2025 11:36 AM CDT): hypotension on 03/08 with AMS and tachypnea, required monitoring in the ICU TTE showed LVEF of 45-50%. Empiric cefepime (03/08- 03/14), s/p linezolid (03/08-03/12) Assessment & Plan (03/18/2025 12:25 PM CDT): hypotension on 03/08 with AMS and tachypnea, required monitoring in the ICU TTE showed LVEF of 45-50%. Empiric cefepime (03/08- 03/14), s/p linezolid (03/08-03/12) Assessment & Plan (03/17/2025 7:15 PM CDT): hypotension on 03/08 with AMS and tachypnea, required monitoring in the ICU TTE showed LVEF of 45-50%. Empiric cefepime (03/08- 03/14), s/p linezolid (03/08-03/12) Assessment & Plan (03/16/2025 12:40 PM CDT): hypotension on 03/08 with AMS and tachypnea, required monitoring in the ICU TTE showed LVEF of 45-50%. Empiric cefepime (03/08- 03/14), s/p linezolid (03/08-03/12) Assessment & Plan (03/15/2025 1:36 PM CDT): hypotension on 03/08 with AMS and tachypnea, required monitoring in the ICU TTE showed LVEF of 45-50%. Empiric cefepime (03/08- 03/14), s/p linezolid (03/08-03/12) Assessment & Plan (03/14/2025 11:57 AM CDT): hypotension on 03/08 with AMS and tachypnea, required monitoring in the ICU TTE showed LVEF of 45-50%. Empiric cefepime (03/08- 03/14), s/p linezolid (03/08-03/12) Assessment & Plan (03/13/2025 6:13 PM CDT): Patient was found to have acute hypotension on 03/08 with very sudden changes of consciousness. RR also significantly increased to >30. BP responded to 1 L LR. Lab showed SUDHIR likely secondary to his hypotensive episode. Differential for his hypotension includes infection vs medication induced low BP. Patient was transferred to ICU for close monitoring and consideration of BiPAP. Did not require pressors while in the ICU. Now stable to transfer back to floor. TTE shows LVEF of 45- 50%. IVC normal. Now has new oxygen requirement of 2 L NC. 03/08 CXR unremarkable. Work-up: -See infectious work-up above. -Lactate 1.1. ABG significant for PCO2 53. Plan: -Abx was started at ICU: cefepime (03/08-), planning to continue for a total of 7 days for possible bacterial cutaneous infection based on wound culture. S/p linezolid (03/08-03/12) -Wean O2 as able Assessment & Plan (03/12/2025 2:59 PM CDT): Patient was found to have acute hypotension on 03/08 with very sudden changes of consciousness. RR also significantly increased to >30. BP responded to 1 L LR. Lab showed SUDHIR likely secondary to his hypotensive episode. Differential for his hypotension includes infection vs medication induced low BP. Patient was transferred to ICU for close monitoring and consideration of BiPAP. Did not require pressors while in the ICU. Now stable to transfer back to floor. TTE shows LVEF of 45- 50%. IVC normal. Now has new oxygen requirement of 2 L NC. 03/08 CXR unremarkable. Work-up: -See infectious work-up above. -Lactate 1.1. ABG significant for PCO2 53. Plan: -Abx was started at ICU: cefepime (03/08-), planning to continue for a total of 7 days for possible bacterial cutaneous infection based on wound culture. S/p linezolid (03/08-03/12) -Wean O2 as able Assessment & Plan (03/11/2025 7:51 PM CDT): Patient was found to have acute hypotension on 03/08 with very sudden changes of consciousness. RR also significantly increased to >30. BP responded to 1 L LR. Lab showed SUDHIR likely secondary to his hypotensive episode. Differential for his hypotension includes infection vs medication induced low BP. Patient was transferred to ICU for close monitoring and consideration of BiPAP. Did not require pressors while in the ICU. Now stable to transfer back to floor. TTE shows LVEF of 45- 50%. IVC normal. Now has new oxygen requirement of 2 L NC. 03/08 CXR unremarkable. Work-up: -See infectious work-up above. -Lactate 1.1. ABG significant for PCO2 53. Plan: -Abx was started at ICU: cefepime (03/08-), linezolid (03/08-) -Wean O2 as able Assessment & Plan (03/10/2025 8:07 PM CDT): Patient was found to have acute hypotension on 03/08 with very sudden changes of consciousness. RR also significantly increased to >30. BP responded to 1 L LR. Lab showed SUDHIR likely secondary to his hypotensive episode. Differential for his hypotension includes infection vs medication induced low BP. Patient was transferred to ICU for close monitoring and consideration of BiPAP. Did not require pressors while in the ICU. Now stable to transfer back to floor. TTE shows LVEF of 45- 50%. IVC normal. Now has new oxygen requirement of 2 L NC. 03/08 CXR unremarkable. Work-up: -See infectious work-up above. -Lactate 1.1. ABG significant for PCO2 53. Plan: -Abx was started at ICU: cefepime (03/08-), linezolid (03/08-) -Wean O2 as able Assessment & Plan (03/08/2025 5:19 PM CDT): Patient was found to have acute hypotension on 03/08 with very sudden changes of consciousness. RR also significantly increased to >30. BP responded to 1 L LR. Lab showed SUDHIR likely secondary to his hypotensive episode. Differential for his hypotension includes infection vs medication induced low BP. Patient was transferred to ICU for close monitoring and consideration of BiPAP. Work-up: -See infectious work-up above. -Lactate 1.1. ABG significant for PCO2 53. Plan: -Abx was started at ICU: cefepime (03/08-), linezolid (03/08-) Assessment & Plan (03/09/2025 1:41 PM CDT): Concern for infectious etiology viral vs bacterial, possible hypovolemia -progressive generalized weakness, generalized swelling and new erythematous rash to left face and nose w/ worsening SOB x 2 days, poor PO intake since receiving most recent T-VEC intra lesion injection on 02/27/25 (known adverse effect of disseminated HSV. ACT was called for hypotension (SBP 140's -> 90's) and altered mental status on 03/08, improved with 1L LR bolus, mental status resolved with improved BP. -Head CT negative, CT Chest with new JENNA nodule c/f infectious etiology. -HSV/VZV swabs of 2 facial lesions and left cheek wound culture sent by Dermatology, started acyclovir, treatment dose (03/07- ) -send BC x 2, UA, fungal serologies, pna pcr, MRSA; RVP negative -start empiric Cefepime and Linezolid (03/08- ) continue Acyclovir -contact and airborne precautions Malignant melanoma 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 node 01/26 Assessment & Plan (03/20/2025 11:33 AM CDT): H/O malignant metastatic melanoma (DDx 02/2024) s/p TVEC injection on 02/27. Initiated on Mektoiv on 03/16/2025. -Onc following, appreciate recs - PET CT 03/15 shows improvement - hold Mektovi, resumption TBD in clinic upon follow up. Assessment & Plan (03/19/2025 11:36 AM CDT): H/O malignant metastatic melanoma (DDx 02/2024) s/p TVEC injection on 02/27. Initiated on Mektoiv on 03/16/2025. -Onc following, appreciate recs - PET CT 03/15 shows improvement - hold mektovi, no plan to resume inpatient per onc, outpatient follow up Assessment & Plan (03/18/2025 12:25 PM CDT): H/O malignant metastatic melanoma (DDx 02/2024) s/p TVEC injection on 02/27. Initiated on Mektoiv on 03/16/2025. -Onc following, appreciate recs - PET CT 03/15 shows improvement - hold mektovi, no plan to resume inpatient per onc, outpatient follow up Assessment & Plan (03/17/2025 7:15 PM CDT): H/O malignant metastatic melanoma (DDx 02/2024) s/p TVEC injection on 02/27. Initiated on Mektoiv on 03/16/2025. -Onc following, appreciate recs - PET CT 03/15 shows improvement - hold mektovi, no plan to resume inpatient per onc, outpatient follow up Assessment & Plan (03/16/2025 12:40 PM CDT): H/O malignant metastatic melanoma (DDx 02/2024) s/p TVEC injection on 02/27. Initiated on Mektoiv on 03/16/2025. -Onc following, appreciate recs - PET CT 03/15 shows improvement - hold mektovi, no plan to resume inpatient per onc, outpatient follow up Assessment & Plan (03/15/2025 1:36 PM CDT): H/O malignant metastatic melanoma (DDx 02/2024) s/p TVEC injection on 02/27. Initiated on Mektoiv on 03/16/2025. -Onc following, appreciate recs - PET CT 03/15 shows improvement - hold mektovi, awaiting onc recs on timing of resuming Assessment & Plan (03/14/2025 12:53 PM CDT): H/O malignant metastatic melanoma (DDx 02/2024) s/p TVEC injection on 02/27. Initiated on Mektoiv on 03/16/2025. -Onc following, appreciate recs - PET CT pending - hold mektovi, awaiting onc recs on timing of resuming Assessment & Plan (03/14/2025 6:53 AM CDT): H/O malignant metastatic melanoma (DDx 02/2024) s/p TVEC injection on 02/27. Initiated on Mektoiv on 03/16/2025. -Onc following, appreciate recs -Outpatient onc team reached out 03/13 and requested PET scan. Ordered Assessment & Plan (03/12/2025 2:59 PM CDT): H/O malignant metastatic melanoma (DDx 02/2024) s/p TVEC injection on 02/27. Initiated on Mektoiv on 03/16/2025. -Onc following, appreciate recs Assessment & Plan (03/11/2025 7:51 PM CDT): H/O malignant metastatic melanoma (DDx 02/2024) s/p TVEC injection on 02/27. Initiated on Mektoiv on 03/16/2025. -Onc following, appreciate recs Assessment & Plan (03/10/2025 8:07 PM CDT): H/O malignant metastatic melanoma (DDx 02/2024) s/p TVEC injection on 02/27. Initiated on Mektoiv on 03/16/2025. -Onc following, appreciate recs Assessment & Plan (03/08/2025 5:19 PM CDT): H/O malignant metastatic melanoma s/p TVEC injection. 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 DX 02/2024, s/p WLE 1/ Ln + - mRNA vaccine trial, pembro arm -12/21/[address], + metastatic melanoma -12/29/24 Brain MRI no intracranial dz, enlarged left neck LN -01/09/25 Ipi/Nivo, last cycle 2 01/30/25, -02/13/[address] DP: enlarging nodule left sternocleidomastoid muscle/inferior to the left parotid gland, new left level 1A LN, osseous lesion right humerus, xiphoid process, T3 spinous process -02/13/25 Binimetinib initiated, 02/[address] Davies. Nakul remains on hold. No plan for inpatient chemotherapy or targeted therapy. 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 Blood pressure the time of admission is 130/101. continue losartan and metoprolol, HCTZ Mixed hyperlipidemia 01/15/2023 Assessment & Plan (03/08/2025 3:28 PM CDT): atorvastatin, Zetia 10 mg p.o. q.day. Angina pectoris, unspecified 02/05/2022 LBBB (left bundle branch block) 03/25/2019 Assessment & Plan (03/21/2021 5:41 PM CDT): Chronic. Stable. Assessment & Plan (09/06/2020 9:14 PM MAGNET MAKER): Chronic. Stable. No associated cardiomyopathy. Assessment & Plan (03/02/2020 2:25 PM CDT): Chronic. Stable. No associated cardiomyopathy. EKG today shows sinus bradycardia rate 53, first-degree AV block, left bundle branch block. Assessment & Plan (08/19/2019 2:50 PM MAGNET MAKER): Chronic. Stable. No intervention required. Assessment & Plan (04/14/2019 7:49 PM CDT): Stable. No intervention required. Assessment & Plan (03/25/2019 2:21 PM CDT): EKG today shows sinus bradycardia rate 55, first-degree AV block, left bundle branch block. History of coronary artery bypass surgery 2018 Assessment & Plan (03/21/2021 5:43 PM CDT): 2002, in [facility]. Assessment & Plan (09/06/2020 9:13 PM MAGNET MAKER): In 2002 in [place], [place]. Assessment & Plan (03/02/2020 2:25 PM CDT): In 2002 in [facility]. Assessment & Plan (08/19/2019 2:50 PM MAGNET MAKER): In 2002 in [place], [place]. Assessment & Plan (04/14/2019 7:50 PM CDT): In 2002 in [place], [place]. PSVT (paroxysmal supraventricular tachycardia) 0 02/10/2019 Assessment & Plan (03/21/2021 5:42 PM CDT): Toprol XL. Digoxin. No recurrence . Assessment & Plan (09/06/2020 9:14 PM MAGNET MAKER): Toprol XL. Digoxin. No recurrence. Assessment & Plan (03/01/2020 8:54 PM CDT): Toprol XL. Digoxin. No recurrence. Assessment & Plan (08/19/2019 2:51 PM MAGNET MAKER): Went to the [facility] and [place] with PSVT. Toprol-XL 50 mg p.o. daily, digoxin 0.125 mg daily. No recurrence of the PSVT. Assessment & Plan (04/14/2019 7:49 PM CDT): Zak went to [facility] brain CT and I with PSVT. The Toprol XL 50 mg p.o. Daily and digoxin 0.125 mg p.o. Daily. No recurrence of the PSVT. Assessment & Plan (03/24/2019 5:58 PM CDT): On 10/23/2007. Went to [place]. No recurrence of PSVT. Toprol XL 50 mg p.o. Daily and digoxin 0.25 mg p.o. Daily. Heart murmur, systolic 02/12/2018 Assessment & Plan (03/21/2021 5:43 PM CDT): Echo Doppler 08/17/2018 showed normal ejection fraction. Aortic valve sclerosis but no stenosis. Mild AR. Assessment & Plan (09/06/2020 9:13 PM MAGNET MAKER): Echo Doppler 08/17/2018 showed normal ejection fraction. Mild aortic valve sclerosis but no stenosis. Mild AR. Assessment & Plan (03/01/2020 8:54 PM CDT): Echo Doppler 08/17/2018 showed normal ejection fraction. Mild aortic valve sclerosis but no stenosis. Mild aortic valve regurgitation. Assessment & Plan (08/19/2019 2:49 PM MAGNET MAKER): Echo 07/2018 showed normal ejection fraction. Mild [...] Atorvastatin. Assessment & Plan (09/06/2020 9:16 PM MAGNET MAKER): To the ostial ramus intermedius 11/17/2017. Repeat cardiac catheterization 04/07/2019, patent stent. Antiplatelet regimen. Aggressive risk factor modification. Assessment & Plan (03/01/2020 8:53 PM CDT): To the ostial ramus intermedius to 11/17/2017. Repeat cardiac catheterization 04/07/2019, patent stent. Antiplatelet regimen. Aggressive risk factor modification. Assessment & Plan (08/19/2019 2:48 PM MAGNET MAKER): To the ostial ramus intermedius to 11/17/2017. [...] (02/09/2019): Coronary artery bypass surgery 2002 in [facility]. JONAS to LAD, KERRI to ramus. Cardiac cath Dr. Navarro 03/12/2007. Medical treatment. Stable angina. Assessment & Plan (03/20/2025 11:33 AM CDT): Coronary artery disease of [place] artery of [place] heart with stable angina pectoris Last [facility] 08/18/24 showed patient graft. 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 Navarro for mildly reduced LVEF seen on recent echo Assessment & Plan (03/19/2025 11:36 AM CDT): Coronary artery disease of [place] artery of [place] heart with stable angina pectoris Last [facility] 08/18/24 showed patient graft. 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 Navarro for mildly reduced LVEF seen on recent echo Assessment & Plan (03/18/2025 12:25 PM CDT): Coronary artery disease of [place] artery of [place] heart with stable angina pectoris Last [facility] 08/18/24 showed patient graft. 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 Navarro for mildly reduced LVEF seen on recent echo Assessment & Plan (03/17/2025 7:15 PM CDT): Coronary artery disease of [place] artery of [place] heart with stable angina pectoris Last [facility] 08/18/24 showed patient graft. 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 TTE 03/09 showed lVEF 45-50% -Continue aspirin and statin -Restarted Isosorbide, metoprolol XL and losartan at home dose -Renexa started at lower dose 500 mg bid -Daily dosing Lasix for extremity swelling. Did not order today 03/13 as patient has been exhausted from sleep deprivation last night -Will have patient follow up with his history teacher Dr. Navarro for mildly reduced LVEF seen on recent echo Assessment & Plan (03/12/2025 3:03 PM CDT): Coronary artery disease of [place] artery of [place] heart with stable angina pectoris (HCC) (Primary) Last [facility] 08/18/24 showed patient JONAS graft. TTE 03/09 showed lVEF 45-50% -Continue aspirin and statin -Restarted Isosorbide, metoprolol XL and losartan -Started jardiance 03/12 for the mildly reduced LVEF -Continue holding ranexa iso recent hypotension and re-start when tolerated -Planing to consult cards 03/13 for mgmt of new LV dysfunction and cardiac meds mgmt -Lasix 40 mg today for extremity swelling Assessment & Plan (03/11/2025 7:51 PM CDT): Coronary artery disease of [place] artery of [place] heart with stable angina pectoris (HCC) (Primary) Last [facility] 08/18/24 showed patient JONAS graft. TTE 03/09 showed lVEF 45-50% -Continue aspirin and statin -Restarted Isosorbide, metoprolol XL and losartan today -Continue holding ranexa iso recent hypotension and re-start when tolerated -Planing to consult cards 03/12 for mgmt of new LV dysfunction and cardiac meds mgmt Assessment & Plan (03/10/2025 10:33 PM CDT): Coronary artery disease of [place] artery of [place] heart with stable angina pectoris (HCC) (Primary) -Continue aspirin and statin -Restarted Isosorbide, metoprolol XL and losartan today -Continue holding ranexa iso recent hypotension and re-start when tolerated Assessment & Plan (03/08/2025 5:19 PM CDT): Coronary artery disease of [place] artery of [place] heart with stable angina pectoris (HCC) (Primary) -Continue aspirin, -Hold Ranexa, isosorbide, losartan, Toprol-XL due to low BP Assessment & Plan (03/08/2025 4:26 PM CDT): -s/p CABG (2002 [place], [place]) with JONAS to LAD, KERRI to ramus. -s/p 2 x 8 mm Synergy stent to ostial ramus intermedius (11/17/17), repeat cardiac catheterization 04/07/19, patent stent. -home meds include Aspirin, Imdur and Atorvastatin. Assessment & Plan (03/08/2025 12:55 AM CDT): Coronary artery disease of [place] artery of [place] heart with stable angina pectoris (HCC) (Primary) Continue aspirin, Ranexa and isosorbide along with the Toprol-XL. Assessment & Plan (03/21/2021 5:38 PM CDT): Coronary artery bypass surgery 2002 in [facility]. JONAS to LAD, KERRI to ramus. Cardiac cath Dr. Navarro 03/12/2007. Medical treatment. Cardiac catheterization 10/30/2017 with stent insertion in the ostium of the ramus intermedius. Repeat cardiac catheterization 04/07/2019. Medical treatment was decided. Aspirin. Atorvastatin. Brilinta. Assessment & Plan (09/06/2020 9:12 PM MAGNET MAKER): Coronary artery bypass surgery 2002 in [facility]. JONAS to LAD, KERRI to ramus. Cardiac [...] lately. Assessment & Plan (08/19/2019 2:46 PM MAGNET MAKER): Coronary artery bypass surgery 2002 in [facility]. JONAS to LAD, KERRI to ramus. Cardiac [...] CDT): Coronary artery bypass surgery 2003 in [facility]. JONAS to LAD, KERRI to ramus. Cardiac [...] CDT): Coronary artery bypass surgery 2002 in [facility]. JONAS to LAD, KERRI to ramus. Abnormal [...] 136/76. Assessment & Plan (09/07/2020 2:57 PM MAGNET MAKER): Blood pressure 122/66. Salt restriction. Continue the current regimen. Assessment & Plan (03/02/2020 2:24 PM CDT): Blood pressure 122/68. Salt restriction. Continue the current regimen. Assessment & Plan (08/19/2019 2:46 PM MAGNET MAKER): Blood pressure 122/60. Salt restriction. Continue the [...] right away. Hyperlipidemia 07/15/2016 Assessment & Plan (03/20/2025 11:33 AM CDT): Continue atorvastatin, Zetia 10 mg p.o. q.day. Assessment & Plan (03/19/2025 11:36 AM CDT): Continue atorvastatin, Zetia 10 mg p.o. q.day. Assessment & Plan (03/18/2025 12:25 PM CDT): Continue atorvastatin, Zetia 10 mg p.o. q.day. Assessment & Plan (03/17/2025 7:15 PM CDT): Continue atorvastatin, Zetia 10 mg p.o. q.day. Assessment & Plan (03/16/2025 12:40 PM CDT): Continue atorvastatin, Zetia 10 mg p.o. q.day. Assessment & Plan (03/15/2025 1:36 PM CDT): Continue atorvastatin, Zetia 10 mg p.o. q.day. Assessment & Plan (03/14/2025 11:41 AM CDT): Continue atorvastatin, Zetia 10 mg p.o. q.day. Assessment & Plan (03/13/2025 6:13 PM CDT): Continue atorvastatin, Zetia 10 mg p.o. q.day. Assessment & Plan (03/12/2025 2:59 PM CDT): Continue atorvastatin, Zetia 10 mg p.o. q.day. Assessment & Plan (03/11/2025 7:51 PM CDT): Continue atorvastatin, Zetia 10 mg p.o. q.day. Assessment & Plan (03/10/2025 7:33 PM CDT): Continue atorvastatin, Zetia 10 mg p.o. q.day. Assessment & Plan (03/08/2025 5:19 PM CDT): Continue atorvastatin, Zetia 10 mg p.o. q.day. Assessment & Plan (03/08/2025 4:28 PM CDT): -home meds include atorvastatin and Zetia Assessment & Plan (03/08/2025 12:55 AM CDT): Continue atorvastatin, Zetia 10 mg p.o. q.day. Assessment & Plan (03/22/2021 3:11 PM CDT): Low-fat low-cholesterol diet. Lipitor. June 2020 the LDL was 76. Assessment & Plan (09/07/2020 2:57 PM MAGNET MAKER): Low-fat low-cholesterol diet. Lipitor. 09/2018 the LDL was 79. In June 2020 the LDL was 76. Assessment & Plan (03/01/2020 8:52 PM CDT): Low-fat low-cholesterol diet. Lipitor 40 mg bedtime daily. On 04/07/2019 the LDL was 79. Assessment & Plan (08/19/2019 2:47 PM MAGNET MAKER): Low-fat low-cholesterol diet. Lipitor 40 mg bedtime [...] 134. Bronchial asthma 07/15/2016 Assessment & Plan (03/08/2025 1:47 AM CDT): H/O Asthma Wheezing today with SOB, doesn't use inhalers at home CXR with no acute findings DUO nebs Assessment & Plan (03/02/2020 2:24 PM CDT): Stable. No coughing or wheezing on this visit. Lungs are clear to auscultation. Diabetes mellitus 07/15/2016 Overview (02/09/2019): Adult onset Assessment & Plan (03/20/2025 11:33 AM CDT): DM type 2. Home medications: On LANTUS 25U nightly, Metformin, Glipizide, Tradjenta -Continue Lantus, ISS Assessment & Plan (03/19/2025 11:36 AM CDT): DM type 2. Home medications: On LANTUS 25U nightly, Metformin, Glipizide, Tradjenta -Continue Lantus, ISS Assessment & Plan (03/18/2025 12:25 PM CDT): DM type 2. Home medications: On LANTUS 25U nightly, Metformin, Glipizide, Tradjenta -Continue Lantus, ISS Assessment & Plan (03/17/2025 7:15 PM CDT): DM type 2. Home medications: On LANTUS 25U nightly, Metformin, Glipizide, Tradjenta -Continue Lantus, ISS Assessment & Plan (03/16/2025 12:40 PM CDT): DM type 2. Home medications: On LANTUS 25U nightly, Metformin, Glipizide, Tradjenta -Continue Lantus, ISS Assessment & Plan (03/15/2025 1:36 PM CDT): DM type 2. Home medications: On LANTUS 25U nightly, Metformin, Glipizide, Tradjenta -Continue Lantus, ISS Assessment & Plan (03/14/2025 11:57 AM CDT): DM type 2. Home medications: On LANTUS 25U nightly, Metformin, Glipizide, Tradjenta -Continue Lantus, ISS Assessment & Plan (03/13/2025 6:13 PM CDT): DM type 2. Home medications: On LANTUS 25U nightly, Metformin, Glipizide, Tradjenta -Continue Lantus, ISS -Carb-consistent diet Assessment & Plan (03/12/2025 2:59 PM CDT): DM type 2. Home medications: On LANTUS 25U nightly, Metformin, Glipizide, Tradjenta -Continue Lantus, ISS -Carb-consistent diet Assessment & Plan (03/11/2025 7:51 PM CDT): DM type 2. Home medications: On LANTUS 25U nightly, Metformin, Glipizide, Tradjenta -Continue Lantus, ISS -Carb-consistent diet Assessment & Plan (03/10/2025 8:07 PM CDT): DM type 2. Home medications: On LANTUS 25U nightly, Metformin, Glipizide, Tradjenta -Continue Lantus, ISS -Carb-consistent diet Assessment & Plan (03/08/2025 5:19 PM CDT): DM type 2 On LANTUS 25U nightly, Metformin, Glipizide, Tradjenta Continue Lantus, ISS Assessment & Plan (03/08/2025 6:20 PM CDT): -home regimen includes: Lantus 25 units nightly, Metformin, Glipizide, Tradjenta -continue Lantus, SSI Assessment & Plan (03/08/2025 12:55 AM CDT): DM type 2 On LANTUS 25U nightly, Metformin, Glipizide, Tradjenta Continue Lantus, ISS Encounters Date Type Department Care Team Description 06/19/2025 3:00 PM CDT Infusion [facility] - Infusion [address] [facility] [address] [place] [address] Metastasis to bone (Primary Dx); Melanoma of face; 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); Metastasis to bone 06/19/2025 9:30 AM CDT Procedure visit [facility] [address] [place] [address] 6 [place] [address] Emmanuel Davies MD PhD 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) (Primary Dx) 06/14/2025 Orders Only [facility] [address] [place] [address] Floor 5 [place] [address] Tan Harrell MD 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) (Primary Dx); Melanoma of face; 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); Metastasis to bone 05/15/2025 2:45 PM CDT Office Visit [facility] [address] [place] [address] 1st [place] [address] Marianna Smiley MD Facial rash (Primary Dx); Combined forms of age-related cataract of both eyes 05/15/2025 10:30 AM CDT Procedure visit [facility] [address] [place] [address] 6 [place] [address] Emmanuel Davies MD PhD 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) (Primary Dx) 04/27/2025 Orders Only [facility] ([facility]) - [facility] [address] [address] [facility] 11th [place] [address] [place] [address] Asuncion Bassett NP 04/24/2025 9:20 AM CDT Office Visit [facility] [address] [place] [address] 6 [place] [address] Tan Harrell MD 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); Melanoma of face (HCC); 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) 04/24/2025 8:45 AM CDT Lab [facility] - Lab Collection [address] [place] [address] 6 [place] [address] 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); Melanoma of face (HCC); 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) 04/24/2025 8:30 AM CDT Procedure visit [facility] [address] [place] [address] 6 [place] [address] Emmanuel Davies MD PhD 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) (Primary Dx) 04/24/2025 8:30 AM CDT Lab [facility] [address] [place] [address] 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); Melanoma of face (HCC); 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) 04/24/2025 Orders Only [facility] Scanning, Provider 04/24/2025 Orders Only [facility] 6 [place] [address] Tan Harrell MD 04/24/2025 Telephone [facility] [address] [place] [phone] Tiki Cabezas RN 04/21/2025 1:40 PM CDT Office Visit [facility] ([facility]) - [facility] [address] [place] [address] 11th [place] [address] [place] [address] Asuncion Bassett NP Hematuria, unspecified type 04/21/2025 11:54 AM CDT - 04/21/2025 11:59 PM CDT Hospital Encounter [facility] PATH[facility] [address] [facility] [address] [place] [address] Hematuria, unspecified type Discharge Disposition: Discharge to home or self care 04/04/2025 Telephone [facility] [address] [place] [address] 1st [place] [address] Vito Marvin MD 04/03/2025 12:45 PM CDT Office Visit [facility] Medical [facility] Cardiology [address] [facility] [address] [address] Phill Navarro MD Atherosclerosis of [place] coronary artery of [place] heart without angina pectoris (Primary Dx); Mixed hyperlipidemia; Essential hypertension, benign; Lower extremity edema 03/28/2025 Telephone [facility] Cardiology [address] [facility] [address] [address] Phill Navarro MD Staff message 03/28/2025 Telephone [facility] [address] [place] [address] 1st [place] [address] Lise Frazier 03/27/2025 2:45 PM CDT Lab [facility] - Lab Collection [facility] Floor 6 [place] [address] 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) 03/27/2025 Orders Only [facility] Scanning, Provider from Last 3 Months Immunizations Immunization Administration [...] HHD (hypertensive heart disease) DM (diabetes mellitus) Bronchial asthma Stable angina Family History Medical History Relation Name Comments No Known Problems Father Heart attack Mother Relation Name Status Comments Father Mother Social History Tobacco Use Types Packs/Day Years Used Date Smoking Tobacco: Never Smokeless Tobacco: Never Tobacco Cessation:Counseling Given: Not Answered Alcohol Use Standard Drinks/Week Comments Never 0 (1 standard drink = 0.6 oz pur e alcohol) [facility] Utilities Answer Date Recorded In the past 12 months has [employer], gas, oil, or water [employer] threatened to shut off services in your home? No 03/16/2025 Social Connection and Isolation Panel Answer Date Recorded In a typical week, how many times do you talk on the phone with family, friends, or neighbors? More than three times a week 03/16/2025 How often do you get togethe r with friends or relatives? Twice a week 03/16/2025 How often do you attend chur ch or church services? More than 4 times per year 03/16/2025 Do you belong to any clubs o r organizations such as mu-ism groups, unions, fraternal or athletic groups, or school groups? Yes 03/16/2025 How often do you attend meet ings of the clubs or organizations you belong to? More than 4 times per year 03/16/2025 Are you , , di vorced, , never , or living with a partner? 03/16/2025 AUDIT-C Answer Date Recorded Q1: How often do you have a drink containing alcohol? Never 08/18/2024 Q2: How many drinks containi ng alcohol do you have on a typical day when you are drinking? Patient does not drink Q3: How often do you have si x or more drinks on one occasion? Never 08/18/2024 Overall Financial Resource Strain (CARDIA) Answe r Date Recorded How hard is it for you to pa y for the very basics like food, housing, medical care, and heating? Not hard at all 03/16/2025 Hunger Vital Sign Answer Date Recorded Within the past 12 months, y ou worried that your food would run out before you got the money to buy more. Never true 03/16/20 25 Within the past 12 months, t he food you bought just didn't last and you didn't have money to get more. Never true 03/16/2025 PRAPARE - Transportation Answer Date Re corded In the past 12 months, has l ack of transportation kept you from medical appointments or from getting medications? No 02/26 In the past 12 months, has l ack of transportation kept you from meetings, work, or from getting things needed for daily living? No 03/16/2025 Housing Stability Vital Sign Answer Ezra e Recorded In the last 12 months, was t here a time when you were not able to pay the mortgage or rent on time? No 03/16/2025 In the past 12 months, how m any times have you moved where you were living? 0 03/16/2025 At any time in the past 12 m [facility], were you homeless or living in a long term (including now)? No 03/16/2025 Personal Safety Answer Date Recorded Have you ever been in or are you currently in a harmful physical or emotional relationship or is someone making you feel afraid or unsafe? Denies 03/08/2025 Sex and Gender Information Value Date Recorded Sex Assigned at Not on file Legal Sex Male 5:34 AM MAGNET MAKER Gender Identity Not on file Sexual Orientation Not on file Obstetrics History Last Filed Vital Signs Vital Sign Reading Time Taken Comments Blood Pressure 136/79 06/19/2025 12:54 PM CDT Pulse 73 06/19/2025 12:54 PM CDT Temperature 36.3 C (97.3 F) 06/19/2025 12:54 PM CDT Respiratory Rate 18 06/19/2025 12:54 PM CDT Oxygen Saturation 97% 06/19/2025 12:54 PM CDT Inhaled Oxygen Concentration - - Weight 102.5 kg (226 lb) 06/19/2025 12:54 PM CDT Height 170.2 cm (5' 7) 04/03/2025 12:57 PM CDT Body Mass Index 35.4 04/03/2025 12:57 PM CDT Plan of Treatment Health Maintenance Due Date Last Done Comments Albumin Creatinine Ratio, Urine 1943 Depression Screening 1943 Foot Exam 1943 DTaP/Tdap/Td Vaccine (1 - Tdap) 1954 Hepatitis B Screening 1961 Pneumococcal vaccine 65+ (1 of 2 - PCV) 1962 Zoster Vaccine (1 of 2) 1962 Well Visit 65+ 2008 Influenza Vaccine (#1) 2025 , 09/04/2019, 06/23/2018, Additional history exists Hemoglobin A1C 09/07/2025 03/08/2025 Lipid Panel 02/13/2026 02/13/2025, 07/30, 02/10/2024, Additional history exists Dilated Eye Exam 03/08/2026 03/08/2025 Fall Risk Assessment 03/20/2026 03/20/2025 eGFR 06/19/2026 06/19/2025, 03/29, 03/27/2025, Additional history exists Medical Devices Implanted Type Area Cryogenics Engineer Device Identifier Shelf Expiration Date Model / Serial / Lot Zeto Angio-Seal Vip 6fr Closere Device [id number] - [id number] Implanted:Qty: 1 on 04/06/2023 by Phill Navarro MD at [facility] [place] [employer] 09/27/2023 [id number] / / [id number] [facility] Closure Repair Femoral Artery Suture Mediated Perclose Prostyle [id number] - [id number] Implanted:Qty: 1 on 08/18/2024 by Phill Navarro MD at [facility] [employer] 04/27/2026 [id number] / / [id number] Procedures Procedure Name Priority Date/Time Associated Diagnosis Comments CT CHEST ABDOMEN PELVIS W CONTRAST Schedule Routine, Read Routine (OP Routine) 06/19/2025 12:38 PM CDT Melanoma of face 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) Clinical trial participant CT SOFT TISSUE NECK W CONTRAST Schedule Routine, Read Routine (OP Routine) 06/19/2025 12:38 PM CDT Melanoma of face 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) Clinical trial participant EGFR STAT 06/19/2025 11:36 AM CDT 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) Melanoma of face 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) Metastasis to bone DIFFERENTIAL AUTO STAT 06/19/2025 11: 36 AM CDT 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) Melanoma of face 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) Metastasis to bone COMPREHENSIVE METABOLIC PANEL STAT 06/19/2025 11:36 AM CDT 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) Melanoma of face 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) Metastasis to bone CBC WITH AUTO DIFFERENTIAL STAT 06/19/2025 11:36 AM CDT 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) Melanoma of face 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) Metastasis to bone LACTATE DEHYDROGENASE STAT 06/19/2025 11:36 AM CDT 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) Melanoma of face 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) Metastasis to bone THYROID FUNCTION CASCADE STAT 06/19/2025 11:36 AM CDT 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) Melanoma of face 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) Metastasis to bone EGFR Routine 04/24/2025 8:36 AM CDT 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) Melanoma of face (HCC) 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) DIFFERENTIAL AUTO Routine 04/24/2025 8:3 6 AM CDT 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) Melanoma of face (HCC) 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) MAGNESIUM Routine 04/24/2025 8:36 AM CDT 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) Melanoma of face (HCC) 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) CBC WITH AUTO DIFFERENTIAL Routine 04/24/2025 8:36 AM CDT 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) Melanoma of face (HCC) 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) COMPREHENSIVE METABOLIC PANEL Routine 04/24/2025 8:36 AM CDT 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) Melanoma of face (HCC) 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) LACTATE DEHYDROGENASE Routine 04/24/2025 8:36 AM CDT 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) Melanoma of face (HCC) 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) TSH Routine 04/24/2025 8:36 AM CDT 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) Melanoma of face (HCC) 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) T3, FREE Routine 04/24/2025 8:36 AM CDT 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) Melanoma of face (HCC) 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) T4, FREE Routine 04/24/2025 8:36 AM CDT 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) Melanoma of face (HCC) 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) SIGNATERA ONLY Routine 04/24/2025 8:27 AM CDT 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) Melanoma of face 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) SCAN - PATHOLOGY 04/24/2025 CYTOLOGY Routine 04/21/2025 2:33 PM CDT Hematuria, unspecified type POCT URINALYSIS DIPSTICK Routine 04/21/2025 1:30 PM CDT Hematuria, unspecified type SIGNATERA ONLY Routine 03/27/2025 2:28 PM CDT 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) Melanoma of face (HCC) 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) EGFR STAT 03/27/2025 12:29 PM CDT 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) Melanoma of face (HCC) 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) T4, FREE Routine 03/27/2025 12:29 PM CDT 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) Melanoma of face (HCC) 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) DIFFERENTIAL AUTO Routine 03/27/2025 12: 29 PM CDT 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) Melanoma of face (HCC) 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) MAGNESIUM STAT 03/27/2025 12:29 PM CDT 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) Melanoma of face (HCC) 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) COMPREHENSIVE METABOLIC PANEL STAT 03/27/2025 12:29 PM CDT 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) Melanoma of face (HCC) 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) CBC WITH AUTO DIFFERENTIAL Routine 03/27/2025 12:29 PM CDT 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) Melanoma of face (HCC) 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) PHOSPHORUS Routine 03/27/2025 12:29 PM CDT 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) Melanoma of face (HCC) 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) THYROID FUNCTION CASCADE Routine 03/27/2025 12:29 PM CDT 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) Melanoma of face (HCC) 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) LACTATE DEHYDROGENASE Routine 03/27/2025 12:29 PM CDT 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) Melanoma of face (HCC) 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 Decreased size of single left upper lobe nodule which could be metastatic or related to inflammatory process. Nearly resolved bilateral lower lobe nodules, with residual scarring likely inflammatory. 2. Resolved submental lymphadenopathy. 3. No metastatic disease in the abdomen or pelvis. 4. No CT correlate seen for previously noted T3 spinous process lesion. No osseous progression. Electronically signed by: MD Mk Winston 06/19/2025 1:01 PM CDT EXAMINATION: Computed tomography of the chest, abdomen and pelvis with intravenous contrast HISTORY: Metastatic melanoma of the left cheek, started Mektovi 02/13/2025, started T-VEC 02/27/2025 TECHNIQUE: Transaxial computed tomographic images of the chest, abdomen and pelvis were obtained with intravenous contrast according to the standard protocol after the uneventful administration of 68 mL Opti-Ray 350 intravenous contrast. COMPARISON: 03/08/2025 FINDINGS: Chest: Decreased size of left upper lobe nodule measuring 6 mm, previously 1.5 cm. Nearly resolved left lower lobe nodules and right lower lobe nodules/pleural thickening with residual scarring. Scattered pulmonary calcifications in both lungs, unchanged. Changes of coronary arterial bypass grafting. Normal heart size. No pericardial effusion. No axillary, supraclavicular, mediastinal, or hilar lymphadenopathy. Resolved submental lymphadenopathy. Imaged thyroid is normal. Abdomen/Pelvis: No focal liver lesion. Normal gallbladder and bile ducts. Normal spleen. Normal pancreas. Normal adrenal glands. Normal kidneys. No hydroureteronephrosis. Urinary bladder is normal. Prostate is enlarged. Severe colonic diverticulosis. No diverticulitis. Appendectomy. No bowel thickening or obstruction. No abdominal pelvic lymphadenopathy. No free fluid or free air. Left fat-containing inguinal hernia. Mild calcifications of the nonaneurysmal aorta. Replaced right hepatic artery from the superior mesenteric artery. No suspicious osseous lesion. There is no definite CT correlate seen for previously noted in T3 spinous process lesion. Procedure Note Stuart Calixto MD - 06/19/2025 EXAMINATION: Computed tomography of the chest, abdomen and pelvis with intravenous contrast HISTORY: Metastatic melanoma of the left cheek, started Mektovi 02/13/2025, started T-VEC 02/27/2025 TECHNIQUE: Transaxial computed tomographic images of the chest, abdomen and pelvis were obtained with intravenous contrast according to the standard protocol after the uneventful administration of 68 mL Opti-Ray 350 intravenous contrast. COMPARISON: 03/08/2025 FINDINGS: Chest: Decreased size of left upper lobe nodule measuring 6 mm, previously 1.5 cm. Nearly resolved left lower lobe nodules and right lower lobe nodules/pleural thickening with residual scarring. Scattered pulmonary calcifications in both lungs, unchanged. Changes of coronary arterial bypass grafting. Normal heart size. No pericardial effusion. No axillary, supraclavicular, mediastinal, or hilar lymphadenopathy. Resolved submental lymphadenopathy. Imaged thyroid is normal. Abdomen/Pelvis: No focal liver lesion. Normal gallbladder and bile ducts. Normal spleen. Normal pancreas. Normal adrenal glands. Normal kidneys. No hydroureteronephrosis. Urinary bladder is normal. Prostate is enlarged. Severe colonic diverticulosis. No diverticulitis. Appendectomy. No bowel thickening or obstruction. No abdominal pelvic lymphadenopathy. No free fluid or free air. Left fat-containing inguinal hernia. Mild calcifications of the nonaneurysmal aorta. Replaced right hepatic artery from the superior mesenteric artery. No suspicious osseous lesion. There is no definite CT correlate seen for previously noted in T3 spinous process lesion. IMPRESSION: 1. Decreased size of single left upper lobe nodule which could be metastatic or related to inflammatory process. Nearly resolved bilateral lower lobe nodules, with residual scarring likely inflammatory. 2. Resolved submental lymphadenopathy. 3. No metastatic disease in the abdomen or pelvis. 4. No CT correlate seen for previously noted T3 spinous process lesion. No osseous progression. Electronically signed by: Stuart Calixto MD Tan Harrell MD IM CT PROCEDURES Final Result * CT Neck Soft Tissue W Contrast (06/19/2025 12:38 PM CDT) Anatomical Region Laterality Modality Head and Neck N/A Computed Tomogra phy 06/19/2025 12:5 9 PM CDT Impressions 06/19/2025 12:59 PM CDT Interval decrease in size in a left submandibular and left intraparotid lymph node compared to 02/13/2025. Unchanged enhancing soft tissue in the left parotid gland suspicious for tumor in the parotid is unchanged from prior neck CT. No new cervical lymphadenopathy. Electronically signed by: Monica Forbes M.D. 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 Restaging imaging per clinical trial follow-up. TECHNIQUE: CT of the neck was performed according to the standard protocol with intravenous contrast. Contrast information: 68 mL Optiray-350 IV COMPARISON: CT neck 02/13/2025 and 01/02/2025 FINDINGS: Redemonstrated is a resection site involving the left cheek. There are multiple foci of enhancing soft tissue thickening in the superficial left parotid gland which appears similar to 02/13/2025 and 01/02/2025. A large mass superficial to the left sternal cleidomastoid muscle inferior to the left parotid lobe is decreased in size, previously measuring 2.4 x 1.4 cm and now measuring 0.8 x 0.6 cm. A left submandibular lymph node previously measuring 1.3 cm now measures 0.7 cm. Additional scattered subcentimeter lymph nodes throughout the neck are not substantially changed. The muscles of the neck are normal. Vessels of the neck demonstrate normal course and caliber. Fascial planes are preserved and the deep spaces of the neck are normal. The visualized airway is widely patent. The base of the skull and the temporal bones are normal. Limited views of the brain including the cerebellum and brainstem are normal. The limited view of the [place] is unremarkable. The visualized portions of the orbits are normal. There is multilevel degenerative disc disease without high-grade canal stenosis. There is a 4 mm pulmonary nodule in the right upper lobe should be evaluated on chest CT performed the same day. 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 Restaging imaging per clinical trial follow-up. TECHNIQUE: CT of the neck was performed according to the standard protocol with intravenous contrast. Contrast information: 68 mL Optiray-350 IV COMPARISON: CT neck 02/13/2025 and 01/02/2025 FINDINGS: Redemonstrated is a resection site involving the left cheek. There are multiple foci of enhancing soft tissue thickening in the superficial left parotid gland which appears similar to 02/13/2025 and 01/02/2025. A large mass superficial to the left sternal cleidomastoid muscle inferior to the left parotid lobe is decreased in size, previously measuring 2.4 x 1.4 cm and now measuring 0.8 x 0.6 cm. A left submandibular lymph node previously measuring 1.3 cm now measures 0.7 cm. Additional scattered subcentimeter lymph nodes throughout the neck are not substantially changed. The muscles of the neck are normal. Vessels of the neck demonstrate normal course and caliber. Fascial planes are preserved and the deep spaces of the neck are normal. The visualized airway is widely patent. The base of the skull and the temporal bones are normal. Limited views of the brain including the cerebellum and brainstem are normal. The limited view of the [place] is unremarkable. The visualized portions of the orbits are normal. There is multilevel degenerative disc disease without high-grade canal stenosis. There is a 4 mm pulmonary nodule in the right upper lobe should be evaluated on chest CT performed the same day. IMPRESSION: Interval decrease in size in a left submandibular and left intraparotid lymph node compared to 02/13/2025. Unchanged enhancing soft tissue in the left parotid gland suspicious for tumor in the parotid is unchanged from prior neck CT. No new cervical lymphadenopathy. Electronically signed by: Monica Forbes M.D. Tan Harrell MD [facility] [place] [place] CT PROCEDURES Final Result * (ABNORMAL) eGFR (06/19/2025 11:36 AM CDT) eGFR 45(L) >=60 mL/min/1. 73 m2 Comment: Interpretive Data Reference Interval Normal >/= 90 mL/min/1.73m2 Mildly decreased* 60 - 89 mL/min/1.73m2 Mildly to moderately decreased 45 - 59 mL/min/1.73m2 Moderately to severely decreased 30 - 44 mL/min/1.73m2 Severely decreased 15 - 29 mL/min/1.73m2 Kidney Failure < 15 mL/min/1.73m2 *Relative to young adult level Estimated glomerular filtration rate is determined by the 2020 CKD-EPI equation recommended by the National Kidney Foundation (A Unifying Approach to GFR Estimation: Recommendations of the NKF-ASK Task Force on Reassessing the Inclusion of Race in Diagnosing Kidney Disease, JASN 2020). The CKD-EPI equation should not be used for patients with unstable renal function and has not been validated in children and those over 70. Current interpretive data was last reviewed 2021. Blood 06/19/2025 11:3 6 AM CDT 06/19/2025 11:51 AM CDT us Tan Harrell MD LAB BLOOD ORDERABLES Final Res ult [facility] Department [place] [address] * (ABNORMAL) Differential, auto (06/19/2025 11:36 AM CDT) Neutrophil abs 6.15 1.50 - 6.50 K/cumm Comment:Testing performed by : [facility], [address] [place], [place] [phone] Lymphocyte abs 2.29 0.80 - 3.30 K/cumm [facility] Comment:Testing performed by : [facility], [address] [place], [place] [phone] Monocyte abs 0.84(H) 0.20 - 0.80 K/cumm [facility] Comment:Testing performed by : [facility], [address] [place], [place] [phone] Eosinophil abs 0.50 0.00 - 0.50 K/cumm [facility] Comment:Testing performed by : [facility], [address] [place] [phone] Basophil abs 0.08 0.00 - 0.10 K/cumm [facility] Comment:Testing performed by : [facility], [address] [place] [phone] Neutrophil pct 62.3 % [facility] Comment: Interpretive Data Percent cell count reference ranges are not reported, since discordance with absolute values may lead to misinterpretation of CBC data. Current Interpretive Data was last revised on 2018. Testing performed by: [facility], [address] [place] [phone] Lymphocyte pct 23.3 % [facility] Comment: Interpretive Data Percent cell count reference ranges are not reported, since discordance with absolute values may lead to misinterpretation of CBC data. Current Interpretive Data was last revised on 2018. Testing performed by: [facility], [address] [place] [phone] Monocyte pct 8.5 % [facility] Comment: Interpretive Data Percent cell count reference ranges are not reported, since discordance with absolute values may lead to misinterpretation of CBC data. Current Interpretive Data was last revised on 2018. Testing performed by: [facility], [address] [place] [phone] Eosinophil pct 5.1 % [facility] Comment: Interpretive Data Percent cell count reference ranges are not reported, since discordance with absolute values may lead to misinterpretation of CBC data. Current Interpretive Data was last revised on 2018. Testing performed by: [facility], [address] [place] [phone] Basophil pct 0.9 % [facility] Comment: Interpretive Data Percent cell count reference ranges are not reported, since discordance with absolute values may lead to misinterpretation of CBC data. Current Interpretive Data was last revised on 2018. Testing performed by: [facility], [address] [place] [phone] Blood 06/19/2025 11:3 6 AM CDT 06/19/2025 11:48 AM CDT Tan Harrell MD LAB BLOOD ORDERABLES Final Res ult [facility] [place] [address] * Thyroid Function [place] (06/19/2025 11:36 AM CDT) Pathologist [facility] TSH 2.70 0.30 - 4.20 mcIUnit/mL Blood 06/19/2025 11:3 6 AM CDT 06/19/2025 11:51 AM CDT Tan Harrell MD LAB BLOOD ORDERABLES Final Res ult Performing Organization Address City/State/[facility] Co de Phone Number [facility] [place] [address] * CBC with auto differential (06/19/2025 11:36 AM CDT) [facility] WBC 9.86 3.80 - 9.90 K/cumm Comment:Testing performed by : [facility], [address] [place] [address] Hgb 13.3 13.0 - 17.5 g/dL [facility] Comment:Testing performed by : [facility], [address] [place] [address] Hct 39.0 38.9 - 50.3 % [facility] Comment:Testing performed by : [facility], [address] [place] [address] Plt 221 150 - 400 K/cumm [facility] Comment:Testing performed by : [facility], [address] [place] [address] MPV 7.3 6.8 - 10.4 fL [facility] Comment:Testing performed by : [facility], [address] [place] [address] RBC 4.54 4.30 - 5.80 M/cumm [facility] Comment:Testing performed by : [facility], [address] [place] [address] MCV 85.8 81.3 - 96.4 fL [facility] Comment:Testing performed by : [facility], [address] [place] [phone] MCH 29.2 27.1 - 33.3 pg [facility] Comment:Testing performed by : [facility], [address] [place], [place] [phone] MCHC 34.1 32.3 - 35.7 g/dL [facility] Comment:Testing performed by : [facility], [address] [place] [phone] RDW CV 14.6 11.1 - 14.9 % [facility] Comment:Testing performed by : [facility], [address] [place] [phone] NRBC abs 0.00 0.00 - 0.01 K/cumm [facility] Comment:Testing performed by : [facility], [address] [place], [place] [phone] Blood 06/19/2025 11:3 6 AM CDT 06/19/2025 11:48 AM CDT Tan Harrell MD LAB BLOOD ORDERABLES Final Res ult Performing Organization Address City/[facility]/ZIP Co de Phone Number [facility] Department [place] [address] * Lactate dehydrogenase (LD) (06/19/2025 11:36 AM CDT) Lactate dehydrogenase (LDH) 174 100 - 250 Units/L Blood 06/19/2025 11:3 6 AM CDT 06/19/2025 11:51 AM CDT Tan Harrell MD LAB BLOOD ORDERABLES Final Res ult Performing Organization Address City/[facility]/ZIP Co de Phone Number [facility] [place] [address] * (ABNORMAL) Comprehensive metabolic panel (06/19/2025 11:36 AM CDT) Sodium 140 135 - 145 mmol/L Potassium, pl 4.8 3.3 - 4.9 mmol/L [facility] Chloride 103 97 - 110 mmol/L [facility] CO2 27 22 - 32 mmol/L [facility] Anion gap 10 2 - 15 mmol/L [facility] BUN 27(H) 6 - 25 mg/dL [facility] Creatinine 1.53(H) 0.80 - 1.30 mg/dL [facility] Glucose 110 70 - 199 mg/dL [facility] Comment: Interpretive Data Fasting glucose >/= 126 mg/dl is diagnostic for diabetes. Fasting is defined as no caloric intake for at least 8 hours. Fasting glucose between 100 mg/dl to 125 mg/dl is diagnostic of prediabetes. In a patient with classic symptoms of hyperglycemia or hyperglycemic crisis, a random glucose >/= 200 mg/dl is diagnostic for diabetes. In the absence of unequivocal hyperglycemia, results should be confirmed by repeat testing. The classification and Diagnosis of Diabetes Diabetes Care 202; 46: S19-S40. Current interpretive data was last revised 2022. Calcium 8.9 8.5 - 10.3 mg/dL [facility] Bilirubin, total 0.4 0.1 - 1.2 mg/dL [facility] Protein, pl 7.4 6.5 - 8.5 g/dL [facility] Albumin 4.1 3.5 - 5.0 g/dL [facility] Alk phos 101 40 - 130 Units/L [facility] ALT 18 7 - 55 Units/L [facility] AST 19 10 - 50 Units/L [facility] Blood 06/19/2025 11:3 6 AM CDT 06/19/2025 11:51 AM CDT Tan Harrell MD LAB BLOOD ORDERABLES Final Res ult [facility] Department [place] [address] * (ABNORMAL) eGFR (04/24/2025 8:36 AM CDT) Pathologist [facility] eGFR 43(L) >=60 mL/min/1. 73 m2 Comment: Interpretive Data Reference Interval Normal >/= 90 mL/min/1.73m2 Mildly decreased* 60 - 89 mL/min/1.73m2 Mildly to moderately decreased 45 - 59 mL/min/1.73m2 Moderately to severely decreased 30 - 44 mL/min/1.73m2 Severely decreased 15 - 29 mL/min/1.73m2 Kidney Failure < 15 mL/min/1.73m2 *Relative to young adult level Estimated glomerular filtration rate is determined by the 2020 CKD-EPI equation recommended by the National Kidney Foundation (A Unifying Approach to GFR Estimation: Recommendations of the NKF-ASK Task Force on Reassessing the Inclusion of Race in Diagnosing Kidney Disease, JASN 2020). The CKD-EPI equation should not be used for patients with unstable renal function and has not been validated in children and those over 70. Current interpretive data was last reviewed 2021. Blood 04/24/2025 8:36 AM CDT 04/24/2025 8:42 AM CDT Tan Harrell MD LAB BLOOD ORDERABLES Final Res ult MICHAEL YEH [facility] [place] [address] * (ABNORMAL) Differential, auto (04/24/2025 8:36 AM CDT) [facility] Neutrophil abs 6.17 1.50 - 6.50 K/cumm Comment:Testing performed by : [facility], [address] [place] [phone] Lymphocyte abs 2.80 0.80 - 3.30 K/cumm MICHAEL YEH Comment:Testing performed by : [facility], [address] [place] [phone] Monocyte abs 0.99(H) 0.20 - 0.80 K/cumm MICHAEL YEH Comment:Testing performed by : [facility], [address] [place] [phone] Eosinophil abs 0.78(H) 0.00 - 0.50 K/cumm CERNER [facility] Comment:Testing performed by : [facility], [address] [place] [phone] Basophil abs 0.11(H) 0.00 - 0.10 K/cumm C[facility]ER [facility] Comment:Testing performed by : [facility], [address] [place] [phone] Neutrophil pct 57.0 % CERNER BJ Comment: Interpretive Data Percent cell count reference ranges are not reported, since discordance with absolute values may lead to misinterpretation of CBC data. Current Interpretive Data was last revised on 2018. Testing performed by: [facility], [address] [place] [phone] Lymphocyte pct 25.8 % CERNER BJ Comment: Interpretive Data Percent cell count reference ranges are not reported, since discordance with absolute values may lead to misinterpretation of CBC data. Current Interpretive Data was last revised on 2018. Testing performed by: [facility], [address] [place] [phone] Monocyte pct 9.1 % CERNER BJ Comment: Interpretive Data Percent cell count reference ranges are not reported, since discordance with absolute values may lead to misinterpretation of CBC data. Current Interpretive Data was last revised on 2018. Testing performed by: [facility], [address] [place] [phone] Eosinophil pct 7.2 % CERNER BJ Comment: Interpretive Data Percent cell count reference ranges are not reported, since discordance with absolute values may lead to misinterpretation of CBC data. Current Interpretive Data was last revised on 2018. Testing performed by: [facility], [address] [place] [phone] Basophil pct 1.0 % CERNER BJ Comment: Interpretive Data Percent cell count reference ranges are not reported, since discordance with absolute values may lead to misinterpretation of CBC data. Current Interpretive Data was last revised on 2018. Testing performed by: [facility], [address] [place] [phone] Blood 04/24/2025 8:36 AM CDT 04/24/2025 8:40 AM CDT us Tan Harrell MD LAB BLOOD ORDERABLES Final Res ult MICHAEL YEH [facility] [place] [address] * (ABNORMAL) CBC with auto differential (04/24/2025 8:36 AM CDT) WBC 10.83(H) 3.80 - 9.90 K/cumm Comment:Testing performed by : [facility], [address] [place] [address] Hgb 12.4(L) 13.0 - 17.5 g/dL MICHAEL YEH Comment:Testing performed by : [facility], [address] [place] [address] Hct 36.7(L) 38.9 - 50.3 % MICHAEL YEH Comment:Testing performed by : [facility], [address] [place] [address] Plt 228 150 - 400 K/cumm MICHAEL YEH Comment:Testing performed by : [facility], [address] [place] [address] MPV 7.7 6.8 - 10.4 fL MICHAEL YEH Comment:Testing performed by : [facility], [address] [place] [address] RBC 4.13(L) 4.30 - 5.80 M/cumm MICHAEL BJ Comment:Testing performed by : [facility], [address] [place] [address] MCV 88.7 81.3 - 96.4 fL CERMANDO YEH Comment:Testing performed by : [facility], [address] [place] [address] MCH 30.1 27.1 - 33.3 pg CERMANDO YEH Comment:Testing performed by : [facility], [address] [place] [phone] MCHC 33.9 32.3 - 35.7 g/dL MICHAEL [facility] Comment:Testing performed by : [facility], [address] [place] [phone] RDW CV 13.8 11.1 - 14.9 % MICHAEL [facility] Comment:Testing performed by : [facility], [address] [place] [phone] NRBC abs 0.00 0.00 - 0.01 K/cumm MICHAEL [facility] Comment:Testing performed by : [facility], [address] [place] [phone] Blood 04/24/2025 8:36 AM CDT 04/24/2025 8:40 AM CDT Tan Harrell MD LAB BLOOD ORDERABLES Final Res ult Performing Organization Address City/[facility]/ZIP Co de Phone Number [facility] [place] [address] * T3, free (04/24/2025 8:36 AM CDT) Free T3 2.8 2.0 - 4.4 pg/mL Blood 04/24/2025 8:36 AM CDT 04/24/2025 8:42 AM CDT Tan Harrell MD LAB BLOOD ORDERABLES Final Res ult [facility] [place] [address] * TSH (04/24/2025 8:36 AM CDT) Thyroid Stimulating Hormone 4.20 0.30 - 4.20 mcIUnit/mL Blood 04/24/2025 8:36 AM CDT 04/24/2025 8:42 AM CDT Tan Harrell MD LAB BLOOD ORDERABLES Final Res ult Performing Organization Address [facility] Co de Phone Number [facility] [place] [address] * T4, free (04/24/2025 8:36 AM CDT) Free T4 0.92 0.90 - 1.70 ng/dL Blood 04/24/2025 8:36 AM CDT 04/24/2025 8:42 AM CDT Tan Harrell MD LAB BLOOD ORDERABLES Final Res ult Performing Organization Address [facility] [place] [address] * Magnesium (04/24/2025 8:36 AM CDT) Magnesium 2.0 1.4 - 2.5 mg/dL Blood 04/24/2025 8:36 AM CDT 04/24/2025 8:42 AM CDT Tan Harrell MD LAB BLOOD ORDERABLES Final Res ult Performing Organization Address [facility] Co de Phone Number [facility] [place] [address] * Lactate dehydrogenase (LD) (04/24/2025 8:36 AM CDT) Lactate dehydrogenase (LDH) 167 100 - 250 Units/L Blood 04/24/2025 8:36 AM CDT 04/24/2025 8:42 AM CDT Tan Harrell MD LAB BLOOD ORDERABLES Final Res ult Performing Organization Address City/[facility]/ZIP Co de Phone Number [facility] [place] [address] * (ABNORMAL) Comprehensive metabolic panel (04/24/2025 8:36 AM CDT) Sodium 141 135 - 145 mmol/L Potassium, pl 4.6 3.3 - 4.9 mmol/L [facility] Chloride 104 97 - 110 mmol/L [facility] CO2 29 22 - 32 mmol/L [facility] Anion gap 8 2 - 15 mmol/L [facility] BUN 25 6 - 25 mg/dL [facility] Creatinine 1.61(H) 0.80 - 1.30 mg/dL [facility] Glucose 92 70 - 199 mg/dL [facility] Comment: Interpretive Data Fasting glucose >/= 126 mg/dl is diagnostic for diabetes. Fasting is defined as no caloric intake for at least 8 hours. Fasting glucose between 100 mg/dl to 125 mg/dl is diagnostic of prediabetes. In a patient with classic symptoms of hyperglycemia or hyperglycemic crisis, a random glucose >/= 200 mg/dl is diagnostic for diabetes. In the absence of unequivocal hyperglycemia, results should be confirmed by repeat testing. The classification and Diagnosis of Diabetes Diabetes Care 202; 46: S19-S40. Current interpretive data was last revised 2022. Calcium 8.9 8.5 - 10.3 mg/dL [facility] Bilirubin, total 0.3 0.1 - 1.2 mg/dL [facility] Protein, pl 6.9 6.5 - 8.5 g/dL [facility] Albumin 3.9 3.5 - 5.0 g/dL [facility] Alk phos 99 40 - 130 Units/L [facility] ALT 16 7 - 55 Units/L [facility] AST 19 10 - 50 Units/L [facility] Blood 04/24/2025 8:36 AM CDT 04/24/2025 8:42 AM CDT us Tan Harrell MD LAB BLOOD ORDERABLES Final Res ult [facility] [place] [address] * (ABNORMAL) SIGNATERA ONLY (04/24/2025 8:27 AM CDT) SIGNATERA TEST RESULT POSITIVE (A) 05/07/2025 6:16 PM CDT [facility] SIGNATERA MTM READOUT 0.58(A) MTM/ml 06/2025 6:16 PM CDT [facility] Comment: Please see the attached PDF for more information. Limitations Signatera is a personalized, tumor-informed test for the longitudinal detection of circulating tumor DNA (ctDNA). Interval testing is recommended for all patients. Studies have demonstrated that when ctDNA is detected (Signatera Positive) following surgery or definitive treatment, the risk for disease relapse is high without further treatment. Conversely, when ctDNA is not detected, the patient may be considered at lower risk for relapse. For those with multiple timepoints, upward trending ctDNA levels are suggestive of increasing tumor burden (1,2). For a single time point in isolation, the absolute MTM/mL value has no known clinical significance and should not be compared across patients. Test results should be interpreted in context of other clinicopathological features. ctDNA detection sensitivity may be limited due to blood collection within two weeks of surgery and while the patient is on therapy. Signatera is a quantitative test and reports in units of mean tumor molecules per ml (MTM/mL), which is comprised of three measured components (plasma volume, cell free DNA (cfDNA) concentration, and Variant Allele Frequency (VAF)). The MTM/mL number will be qualified if any measured component falls outside the analytical measurement range for that component. The analytical sensitivity is 95% at the limit of detection (0.3 MTM/mL). Results obtained are specific to the assessed time point. A negative test result does not definitively indicate the absence of cancer. This test is not designed to detect or report germline variation, nor does it infer hereditary cancer risk for the patient. Each Signatera assay is designed to a single tumor for a given patient. At this time, multiple personalized Signatera assays cannot be developed for the same patient. This test is designed to detect ctDNA from the assayed tumor only; new primary tumors will not be detected. There is a low risk that a new primary may share a variant that could interfere with the Signatera test. Testing cannot be performed in patients who are , have a history of bone marrow transplant, or history of blood transfusion within three months. This test is expected to have limited sensitivity in cancer types such as GIST, renal cell carcinomas, primary brain tumors, and lymphoma due to limited ctDNA shed. 1 Akshat SV, Mesfin MCKNIGHTC, Jyothi RASMUSSEN, et al. Personalized circulating tumor DNA analysis as a predictive biomarker in solid tumor patients treated with pembrolizumab. Nature Cancer. 2020;1(9):873-881. 2 Litzy ENRIQUEZ, Antonio Posada, et al., Circulating Tumor DNA in Stage III Colorectal Cancer, beyond Minimal Residual Disease Detection, toward Assessment of Adjuvant Therapy Efficacy and Clinical Behavior of Recurrences. Clin Cancer Res. 202; 28(3):507-517. Methodology FFPE samples are assessed by a pathologist to identify tumor margins and percent tumor content. Tumor DNA is extracted using Qiagen AllPrep. Whole genomic DNA is isolated from peripheral blood using QIAamp DNA Blood Mini Kit to provide a baseline DNA sequence. Circulating tumor DNA (ctDNA) is extracted from plasma derived from whole blood samples collected in cell-free DNA blood tubes (HALKARck) using the QIApocketvillagemphony automated or manual extraction method (Qiagen). Using a proprietary algorithm, putative, clonal variants present in the tumor but absent in the germline DNA are identified to design the customized multiplex PCR assay. Whole-exome sequencing is performed on tumor and peripheral blood DNA using Just SolesA ImpermiumPrep library kit (Munetrix) with a custom OneTouchEMR exome capture (Distractify). Using a proprietary algorithm, putative clonal variants present in the tumor but absent in the germline DNA are identified to design the customized multiplex PCR assay. Circulating tumor DNA is extracted from plasma collected in Streck tubes using LookUP proprietary methods. The customized PCR assays are run to detect presence or absence of these variants within circulating plasma. A patient's plasma sample is considered ctDNA positive when at least two individual-specific tumor variants are detected. When fewer than two individual-specific tumor variants are observed, a negative result is issued. Tumor variation outside of the individual, tumor specific variants is not assessed. Pathology services and whole exome sequencing are performed at [facility] (CLIA ID# [id number]) [address] [place] [address]. Disclaimer The extraction, library preparation, and sequencing for this test were performed by [facility] [address], [place] [address] (CLIA ID [id number]). The data analysis and reporting for this test were performed by [facility] [address], [place] [address] (CLIA ID [id number]). This test was developed and its performance characteristics determined by [facility]. The test has not been cleared or approved by the U.S. Food and Drug Administration (FDA). CAP accredited, ISO 92488 certified, and CLIA certified. Pathology services and whole exome sequencing for this test were performed by [facility] [address] [place] [id number] (CLIA ID [id number]). 2020 [employer]. All Rights Reserved. Blood specimen (specimen) Venous blood specimen / Unknown 04/24/2025 8:27 AM CDT 05/07/2025 6:16 PM CDT Tan Harrell MD LAB GENETIC TESTING Final Resu lt [facility] [address] [place] [address], [facility] * SCAN - PATHOLOGY (04/24/2025) Provider Scanning Final Result * Cytology (04/21/2025 2:33 PM CDT) Fluid (Urine, Voided (Cytology)) 04/21/2025 2:33 PM CDT 04/21/2025 4:24 PM CDT Narrative PATHOLOGY [facility] - 04/26/2025 3:10 PM CDT EPIC results best viewed via link to PDF [facility] Path[facility] [place] [address] Note to Patients: This report may contain a detailed description of human tissue sent by a health care provider to the laboratory for pathologic evaluation. The content of this report is essential for diagnosis and may provide important critical findings. This information may be unfamiliar to patients to review without a medical professional present. It is advised that the patient review this report in the presence of a health care provider who can answer questions and explain the details. CYTOPATHOLOGY REPORT FINAL Patient Name: MICHAEL AVILEZ Gender: M : 1945 (Age: 79) Address: [address] [place] [address] Hospital #: [id number] Taken:04/21/2025 Received:04/21/2025 Reported: 04/26/2025 Patient Type: [facility] SPECIMEN Service: UNKNOWN Location: Physician(s): Asuncion Bassett NP FINAL DIAGNOSIS A. Urine, voided: - Negative for high-grade urothelial carcinoma (see comment) Comments The cytologic preparation shows squamous cells, reactive urothelial cells, and mixed inflammation. The background shows blood and hemosiderin pigment. The patient's history of metastatic melanoma with recent initiation of immunotherapy is noted. If clinical concern for involvement by a neoplastic process persists, additional sampling may be warranted. pfm/04/26/2025 14:32 By this signature, I attest that the above diagnosis is based upon my personal examination of the slides(and/or other material indicated in the diagnosis). Zhang Stinson MD Report Electronically Reviewed and Signed Out By Zhang Stinson MD 04/26/2025 15:10:01 NICKIE Saravia (ASCP) Gross Description A. Urine, bladder, void: 120 ml orange fluid in CytoRich Red vial - 1 Pap stained Cytospin. (ep) Clinical Diagnosis and History The patient is a 79-year-old man with history of metastatic melanoma who presents with gross hematuria. REPORT IMAGES AND SCANNED DOCUMENTS, IF INCLUDED, ONLY VIEWABLE IN PDF VERSION OF REPORT The performance characteristics of some immunohistochemical stains, in-situ hybridization and fluorescence in-situ hybridization tests and immunophenotyping by flow cytometry cited in this report (if any) were determined by the Surgical Pathology and Flow Cytometry Departments at [place] [facility] as part of an ongoing microbiology quality control technician program and in compliance with federally mandated regulations drawn from the Clinical Laboratory Improvement Act of 1988 (CLIA '88). Some of these tests rely on the use of analyte specific reagents and are subject to specific labeling requirements by the US Food and Drug Administration. Such diagnostic tests may only be performed in a facility that is certified by the Department of Health and Human Services as a high complexity laboratory under CLIA '88. The FDA has determined that such clearance or approval is not necessary. This test is used for clinical purposes. It should not be regarded as investigational or for research. Nevertheless, federal rules concerning the medical use of analyte specific reagents require that the following disclaimer be attached to the report: This test was developed and its performance characteristics determined by the Surgical Pathology and Flow Cytometry Departments of [facility]. It has not been cleared or approved by the U. S. Food and Drug Administration. Asuncion Bassett NP LAB CYTOLOGY ORDERABLES Final Result PATHOLOGY [facility] 3rd Floor [place], [place] [phone] * (ABNORMAL) POCT urinalysis dipstick (04/21/2025 1:30 PM CDT) Pathologist [facility] Color, Urine, POC Yellow Clarity, ur, POC Clear Clear Glucose, ur, POC Negative Negative Ketones, ur, POC Negative Negative Blood, ur, POC Negative Negative pH, ur, POC 5.0 5.0 - 8.0 Protein, ur, POC Trace(A) Negative Nitrite, ur, POC Negative Negative Leukocytes, ur, POC 1+(A) Negative Lot Number x Urine 04/21/2025 1:30 PM CDT Asuncion Bassett NP POINT OF CARE TEST ORDE RABLES Final Result * (ABNORMAL) SIGNATERA ONLY (03/27/2025 2:28 PM CDT) Pathologist [facility] SIGNATERA TEST RESULT POSITIVE (A) 04/03/2025 12:37 AM CDT [facility] SIGNATERA MTM READOUT 12.12(A) MTM/ml 03/2025 12:37 AM CDT [facility] Comment: Please see the attached PDF for more information. Limitations Signatera is a personalized, tumor-informed test for the longitudinal detection of circulating tumor DNA (ctDNA). Interval testing is recommended for all patients. Studies have demonstrated that when ctDNA is detected (Signatera Positive) following surgery or definitive treatment, the risk for disease relapse is high without further treatment. Conversely, when ctDNA is not detected, the patient may be considered at lower risk for relapse. For those with multiple timepoints, upward trending ctDNA levels are suggestive of increasing tumor burden (1,2). For a single time point in isolation, the absolute MTM/mL value has no known clinical significance and should not be compared across patients. Test results should be interpreted in context of other clinicopathological features. ctDNA detection sensitivity may be limited due to blood collection within two weeks of surgery and while the patient is on therapy. Signatera is a quantitative test and reports in units of mean tumor molecules per ml (MTM/mL), which is comprised of three measured components (plasma volume, cell free DNA (cfDNA) concentration, and Variant Allele Frequency (VAF)). The MTM/mL number will be qualified if any measured component falls outside the analytical measurement range for that component. The analytical sensitivity is 95% at the limit of detection (0.3 MTM/mL). Results obtained are specific to the assessed time point. A negative test result does not definitively indicate the absence of cancer. This test is not designed to detect or report germline variation, nor does it infer hereditary cancer risk for the patient. Each Signatera assay is designed to a single tumor for a given patient. At this time, multiple personalized Signatera assays cannot be developed for the same patient. This test is designed to detect ctDNA from the assayed tumor only; new primary tumors will not be detected. There is a low risk that a new primary may share a variant that could interfere with the Signatera test. Testing cannot be performed in patients who are , have a history of bone marrow transplant, or history of blood transfusion within three months. This test is expected to have limited sensitivity in cancer types such as GIST, renal cell carcinomas, primary brain tumors, and lymphoma due to limited ctDNA shed. 1 Akshat DALTON, Mesfin MCKNIGHTC, Jyothi RASMUSSEN, et al. Personalized circulating tumor DNA analysis as a predictive biomarker in solid tumor patients treated with pembrolizumab. Nature Cancer. 2020;1(9):873-881. 2 Litzy ENRIQUEZ, Antonio Posada, et al., Circulating Tumor DNA in Stage III Colorectal Cancer, beyond Minimal Residual Disease Detection, toward Assessment of Adjuvant Therapy Efficacy and Clinical Behavior of Recurrences. Clin Cancer Res. 2020; 28(3):507-517. Methodology FFPE samples are assessed by a pathologist to identify tumor margins and percent tumor content. Tumor DNA is extracted using Qiagen AllPrep. Whole genomic DNA is isolated from peripheral blood using QIAamp DNA Blood Mini Kit to provide a baseline DNA sequence. Circulating tumor DNA (ctDNA) is extracted from plasma derived from whole blood samples collected in cell-free DNA blood tubes ([employer]) using the QIApocketvillagemphony automated or manual extraction method (Qiagen). Using a proprietary algorithm, putative, clonal variants present in the tumor but absent in the germline DNA are identified to design the customized multiplex PCR assay. Whole-exome sequencing is performed on tumor and peripheral blood DNA using Shelfarip library kit (Munetrix) with a custom OneTouchEMR exome capture (Distractify). Using a proprietary algorithm, putative clonal variants present in the tumor but absent in the germline DNA are identified to design the customized multiplex PCR assay. Circulating tumor DNA is extracted from plasma collected in Streck tubes using LookUP proprietary methods. The customized PCR assays are run to detect presence or absence of these variants within circulating plasma. A patient's plasma sample is considered ctDNA positive when at least two individual-specific tumor variants are detected. When fewer than two individual-specific tumor variants are observed, a negative result is issued. Tumor variation outside of the individual, tumor specific variants is not assessed. Pathology services and whole exome sequencing are performed at [facility] (CLIA ID# [id number]) [address] [place] [address]. Disclaimer The extraction, library preparation, and sequencing for this test were performed by [facility] [address] [place] [address] [address], [place] [address] (CLIA ID [id number]). The data analysis and reporting for this test were performed by [facility] [address], [place] [address] (CLIA ID [id number]). This test was developed and its performance characteristics determined by [employer]. The test has not been cleared or approved by the U.S. Food and Drug Administration (FDA). CAP accredited, ISO 70866 certified, and CLIA certified. Pathology services and whole exome sequencing for this test were performed by [facility] [address] [place] [address] (CLIA ID [id number]). 2020 [employer]. All Rights Reserved. Blood specimen (specimen) Venous blood specimen / Unknown 03/27/2025 2:28 PM CDT 04/03/2025 12:37 AM CDT Tan Harrell MD LAB GENETIC TESTING Final Resu lt [employer] [facility] [address] * (ABNORMAL) eGFR (03/27/2025 12:29 PM CDT) eGFR 56(L) >=60 mL/min/1. 73 m2 Comment: Interpretive Data Reference Interval Normal >/= 90 mL/min/1.73m2 Mildly decreased* 60 - 89 mL/min/1.73m2 Mildly to moderately decreased 45 - 59 mL/min/1.73m2 Moderately to severely decreased 30 - 44 mL/min/1.73m2 Severely decreased 15 - 29 mL/min/1.73m2 Kidney Failure < 15 mL/min/1.73m2 *Relative to young adult level Estimated glomerular filtration rate is determined by the 2020 CKD-EPI equation recommended by the National Kidney Foundation (A Unifying Approach to GFR Estimation: Recommendations of the NKF-ASK Task Force on Reassessing the Inclusion of Race in Diagnosing Kidney Disease, JASN 2020). The CKD-EPI equation should not be used for patients with unstable renal function and has not been validated in children and those over 70. Current interpretive data was last reviewed 2021. Blood 03/27/2025 12:2 9 PM CDT 03/27/2025 1:03 PM CDT Edgar Saini NP LAB BLOOD ORDERABLES Megha l Result [facility] Department [place] [address] * (ABNORMAL) Differential, auto (03/27/2025 12:29 PM CDT) Neutrophil abs 6.08 1.50 - 6.50 K/cumm Comment:Testing performed by : [facility], [address] [place] [phone] Lymphocyte abs 1.68 0.80 - 3.30 K/cumm CERMANDO YEH Comment:Testing performed by : [facility], [address] [place] [phone] Monocyte abs 0.84(H) 0.20 - 0.80 K/cumm CERNER BJ Comment:Testing performed by : [facility], [address] [place], [place] [phone] Eosinophil abs 0.38 0.00 - 0.50 K/cumm [facility] Comment:Testing performed by : [facility], [address] [place] [phone] Basophil abs 0.05 0.00 - 0.10 K/cumm [facility] Comment:Testing performed by : [facility], [address] [place] [phone] Neutrophil pct 67.3 % CERNER BJ Comment: Interpretive Data Percent cell count reference ranges are not reported, since discordance with absolute values may lead to misinterpretation of CBC data. Current Interpretive Data was last revised on 2018. Testing performed by: [facility], [address] [place] [phone] Lymphocyte pct 18.6 % CERNER BJ Comment: Interpretive Data Percent cell count reference ranges are not reported, since discordance with absolute values may lead to misinterpretation of CBC data. Current Interpretive Data was last revised on 2018. Testing performed by: [facility], [address] [place] [phone] Monocyte pct 9.3 % CERNER BJ Comment: Interpretive Data Percent cell count reference ranges are not reported, since discordance with absolute values may lead to misinterpretation of CBC data. Current Interpretive Data was last revised on 2018. Testing performed by: [facility], [address] [place] [phone] Eosinophil pct 4.2 % [facility] Comment: Interpretive Data Percent cell count reference ranges are not reported, since discordance with absolute values may lead to misinterpretation of CBC data. Current Interpretive Data was last revised on 2018. Testing performed by: [facility], [address] [place] [phone] Basophil pct 0.5 % [facility] Comment: Interpretive Data Percent cell count reference ranges are not reported, since discordance with absolute values may lead to misinterpretation of CBC data. Current Interpretive Data was last revised on 2018. Testing performed by: [facility], [address] [place] [phone] Blood 03/27/2025 12:2 9 PM CDT 03/27/2025 1:00 PM CDT Edgar Saini NP LAB BLOOD ORDERABLES Megha l Result [facility] [place] [address] * (ABNORMAL) Thyroid Function [place] (03/27/2025 12:29 PM CDT) Pathologist [facility] TSH 5.28(H) 0.30 - 4.20 mcIUnit/mL Blood 03/27/2025 12:2 9 PM CDT 03/27/2025 1:03 PM CDT Edgar Saini PARENT AIDE LAB BLOOD ORDERABLES Megha l Result [facility] [place] [address] * (ABNORMAL) CBC with auto differential (03/27/2025 12:29 PM CDT) Pathologist [facility] WBC 9.02 3.80 - 9.90 K/cumm Comment:Testing performed by : [facility], [address] [place], [place] [phone] Hgb 10.6(L) 13.0 - 17.5 g/dL CERNER BJ Comment:Testing performed by : [facility], [address] [place], [place] [phone] Hct 31.3(L) 38.9 - 50.3 % CERNER BJ Comment:Testing performed by : [facility], [address] [place], [place] [phone] Plt 319 150 - 400 K/cumm CERNER BJ Comment:Testing performed by : [facility], [address] [place], [place] [phone] MPV 7.4 6.8 - 10.4 fL CERNER BJ Comment:Testing performed by : [facility], [address] [place], [place] [phone] RBC 3.49(L) 4.30 - 5.80 M/cumm CERNER BJ Comment:Testing performed by : [facility], [address] [place], [place] [phone] MCV 89.7 81.3 - 96.4 fL CERNER BJ Comment:Testing performed by : [facility], [address] [place], [place] [phone] MCH 30.4 27.1 - 33.3 pg CERNER BJ Comment:Testing performed by : [facility], [address] [place] [address] MCHC 33.9 32.3 - 35.7 g/dL CERNER BJ Comment:Testing performed by : [facility], [address] [place] [address] RDW CV 14.6 11.1 - 14.9 % CERNER BJ Comment:Testing performed by : [facility], [address] [place] [address] NRBC abs 0.00 0.00 - 0.01 K/cumm CERNER BJ Comment:Testing performed by : [facility], [address] [place] [phone] Blood 03/27/2025 12:2 9 PM CDT 03/27/2025 1:00 PM CDT Edgar Saini NP LAB BLOOD ORDERABLES Megha l Result [facility] [place] [address] * T4, free (03/27/2025 12:29 PM CDT) Free T4 1.05 0.90 - 1.70 ng/dL Blood 03/27/2025 12:2 9 PM CDT 03/27/2025 1:03 PM CDT Narrative [facility] - 03/27/2025 2:07 PM CDT This test was reflexed from a TSH result. Edgar Saini NP LAB BLOOD ORDERABLES Megha l Result Performing Organization Address City/[facility]/ZIP Co de Phone Number [facility] [place] [address] * Phosphorus (03/27/2025 12:29 PM CDT) Phosphorus, pl 3.5 2.3 - 4.5 mg/dL Blood 03/27/2025 12:2 9 PM CDT 03/27/2025 1:03 PM CDT Edgar Saini NP LAB BLOOD [place] [address] * Magnesium (03/27/2025 12:29 PM CDT) Magnesium 1.8 1.4 - 2.5 mg/dL Blood 03/27/2025 12:2 9 PM CDT 03/27/2025 1:03 PM CDT Edgar Saini PARENT AIDE LAB BLOOD ORDERABLES Megha l Result Performing Organization Address [facility] de Phone Number [facility] [place] [address] * Lactate dehydrogenase (LD) (03/27/2025 12:29 PM CDT) [facility] Lactate dehydrogenase (LDH) 173 100 - 250 Units/L Blood 03/27/2025 12:2 9 PM CDT 03/27/2025 1:03 PM CDT Edgar Saini NP LAB BLOOD ORDERABLES Megha l Result Performing Organization Address [facility] de Phone Number [facility] [place] [address] * Comprehensive metabolic panel (03/27/2025 12:29 PM CDT) [facility] Sodium 139 135 - 145 mmol/L Potassium, pl 4.3 3.3 - 4.9 mmol/L [facility] Chloride 105 97 - 110 mmol/L [facility] CO2 27 22 - 32 mmol/L [facility] Anion gap 7 2 - 15 mmol/L [facility] BUN 17 6 - 25 mg/dL [facility] Creatinine 1.29 0.80 - 1.30 mg/dL [facility] Glucose 89 70 - 199 mg/dL [facility] Comment: Interpretive Data Fasting glucose >/= 126 mg/dl is diagnostic for diabetes. Fasting is defined as no caloric intake for at least 8 hours. Fasting glucose between 100 mg/dl to 125 mg/dl is diagnostic of prediabetes. In a patient with classic symptoms of hyperglycemia or hyperglycemic crisis, a random glucose >/= 200 mg/dl is diagnostic for diabetes. In the absence of unequivocal hyperglycemia, results should be confirmed by repeat testing. The classification and Diagnosis of Diabetes Diabetes Care 2022; 46: S19-S40. Current interpretive data was last revised 2022. Calcium 8.6 8.5 - 10.3 mg/dL [facility] Bilirubin, total 0.4 0.1 - 1.2 mg/dL [facility] Protein, pl 6.7 6.5 - 8.5 g/dL [facility] Albumin 3.6 3.5 - 5.0 g/dL [facility] Alk phos 107 40 - 130 Units/L [facility] ALT 23 7 - 55 Units/L [facility] AST 20 10 - 50 Units/L [facility] Blood 03/27/2025 12:2 9 PM CDT 03/27/2025 1:03 PM CDT us Edgar Saini PARENT AIDE LAB BLOOD ORDERABLES Megha l Result Performing Organization Address [facility] de Phone Number [facility] [place] [address] * SCAN - PATHOLOGY (03/27/2025) us Provider Scanning Final Result * (ABNORMAL) Hemoglobin A1c (03/08/2025 1:49 AM CDT) Hgb A1C 8.1(H) 4.0 - 5.6 % Estimated Average Glucose 186 mg/dL [facility] Comment: The ADA recommends reporting an estimated Average Glucose (eAG) with all Hemoglobin A1c results using the equation derived from a study of 507 normal and diabetic adults. Minority populations were underrepresented and children were not included. (Diabetes Care 2020; 43(S1): S66-S76). The eAG is not equivalent to a fasting glucose. Blood 03/08/2025 1:49 AM CDT 03/08/2025 2:24 AM CDT Taty Titus DO LAB BLOOD ORDERABLES Final Resul t Performing Organization Address [facility] Co de Phone Number [facility] Department [place] [address] * (ABNORMAL) Lipid panel (02/13/2025 10:45 AM CDT) Cholesterol 98 30 - 199 mg/dL Comment: Interpretive Data Ages < or = 19 years Acceptable: <170 mg/dL Borderline high: 170-199 mg/dL High: >or= 200 mg/dL Ages > or = 20 years Desirable: <200 mg/dL Borderline high: 200-239 mg/dL High: >or= 240 mg/dL Literature References: 1. Expert Panel on Integrated Guidelines for Cardiovascular Health and Risk Reduction in Children and Adolescents. Pediatrics 2011;128:S213 2. NCEP Expert Panel. Circulation 2004;110:227 Current Interpretive Data was last revised on 2018. Triglycerides 103 <=149 mg/dL [facility] Comment: Interpretive Data Ages < or = 9 years Acceptable: <75 mg/dL Borderline high: 75-99 mg/dL High: >or= 100 mg/dL Ages 10 to 20 years Acceptable: <90 mg/dL Borderline high: 90-129 mg/dL High: >or= 130 mg/dL Ages > or = 20 years Desirable: <150 mg/dL Borderline high: 150-199 mg/dL High: 200-499 mg/dL Very high: >or= 499 mg/dL Literature References: 1. Expert Panel on Integrated Guidelines for Cardiovascular Health and Risk Reduction in Children and Adolescents. Pediatrics 2011;128:S213 2. NCEP Expert Panel. Circulation 2004;110:227 Current Interpretive Data was last revised on 2018. HDL 29(L) >=40 mg/dL [facility] Comment: Interpretive Data Ages < or = 19 years Acceptable: >45 mg/dL Borderline low: 40-45 mg/dL Low: <40 mg/dL Ages > or = 20 years Desirable: >or= 60 mg/dL Low: <40 mg/dL Literature References: 1. Expert Panel on Integrated Guidelines for Cardiovascular Health and Risk Reduction in Children and Adolescents. Pediatrics 2011;128:S213 2. NCEP Expert Panel. Circulation 2004;110:227 Current Interpretive Data was last revised on 2018. LDL, calculated 49 <=129 mg/dL [facility] Comment: Interpretive Data Ages < or = 19 years Acceptable: <110 mg/dL Borderline high: 110-129 mg/dL High: >or= 130 mg/dL Ages > or = 20 years Optimal: <100 mg/dL Near optimal: 100-129 mg/dL Borderline high: 130-159 mg/dL High: >160 mg/dL Calculated using the eJ[employer] LDL-C estimating equation. This equation was implemented on 2024. Prior to this date LDL-C was estimated using the Friedewald equation. Literature References: 1. Expert Panel on Integrated Guidelines for Cardiovascular Health and Risk Reduction in Children and Adolescents. Pediatrics 2011;128:S213 2. NCEP Expert Panel. Circulation 2004;110:227 3. Jeromy M et al. BERNIE Cardiol. 2020 January 26;5(5):540-548. doi: 10.1001/jamacardio.2020.0013 Current Interpretive Data was last revised on 2024. Non-HDL Cholesterol 69 mg/dL [facility] Comment: Interpretive Data Ages < or = 19 years Acceptable: <120 mg/dL Borderline high: 120-144 mg/dL High: >145 mg/dL Ages > or = 20 years When triglycerides are >200 mg/dL, Non-HDL cholesterol is a secondary target of therapy with treatment goals that are 30 mg/dL greater than the LDL cholesterol target. Literature References: 1. Expert Panel on Integrated Guidelines for Cardiovascular Health and Risk Reduction in Children and Adolescents. Pediatrics 2011;128:S213 2. NCEP Expert Panel. Circulation 2004;110:227 Current Interpretive Data was last revised on 2018. Chol/HDL ratio 3 [facility] Blood 02/13/2025 10:4 5 AM CDT 02/13/2025 10:52 AM CDT us Phill Navarro MD LAB BLOOD ORDERABLES Final Result [facility] Department [place] [address] from Last 3 Months or Most Recently Relevant to Health Maintenance Insurance [facility] [address] [place] [address] HEALTHCARE MEDICARE RESEARCH Advance Directives For more information, please contact: [phone] * Full Code (Latest Code Status on File) Date Activated Date Inactivated Comments 03/08/2025 1:06 AM 03/20/2025 6:46 PM * Full Code Date Activated Date Inactivated Comments 04/06/2023 5:57 PM 04/06/2023 11:39 PM Care Teams Health Insurance Agent Relationship Specialty Start Date End Date Olivier Puente MD [address] [place] [address] PCP - General Family Medicine 02/10/19 Ubaldo Kilgore MD [address] [place] [address] Plastic Surgery 04/10/24
--- OUTSIDE RECORDS SUMMARY | 2025-06-26 07:47 | XMS_ITS | Encounter Summary ---
Author Organization [facility] Address [address] [place] [address] Phone Care Team Providers Care National Sales Executive Name Role Phone Olivier Puente MD Primary Care Provider Ubaldo Kilgore MD Unavailable [phone] Encounter Details Date Type Department Care Team (Latest Contact Info) Description 04/24/2025 Orders Only [facility] Scanning, Provider Social History Tobacco Use Types Packs/Day Years Used Date Smoking Tobacco: Never Smokeless Tobacco: Never Alcohol Use Standard Drinks/Week Comments Never 0 (1 standard drink = 0.6 oz pur e alcohol) [facility] Utilities Answer Date Recorded In the past 12 months has [employer], gas, oil, or water company threatened to shut off services in your [...] often do you attend chur ch or yazidism services? More than 4 times per year 03/16/2025 Do you belong to any clubs o r organizations such as denominational groups, unions, fraternal or athletic groups, or [...] any time in the past 12 m [facility], were you homeless or living in a senior care (including now)? No 03/16/2025 Personal Safety Answer Date Recorded Have you ever been in or are you currently in a harmful physical or emotional relationship or is someone making you feel afraid or unsafe? 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 Gender Identity Not on file Sexual Orientation Not on file documented as of this encounter Plan of Treatment Not on file documented as of this encounter Procedures Procedure Name Priority Date/Time Associated Diagnosis Comments SCAN - PATHOLOGY 04/24/2025 documented in this encounter Results * SCAN - PATHOLOGY (04/24/2025) us Provider Scanning Final Result documented in this encounter Visit Diagnoses Not on filedocumented in this encounter Care Teams National Sales Executive Relationship Specialty Start Date End Date Olivier Puente MD [address] [place] [address] PCP - General Family Medicine 02/10/19 Ubaldo Kilgore MD [address] [place] [address] Plastic Surgery 04/10/24 documented as of this encounter
--- OUTSIDE RECORDS SUMMARY | 2025-06-26 07:47 | XMS_ITS | Encounter Summary ---
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 us Historical Provider Final Res ult documented in this encounter Visit Diagnoses Not on filedocumented in this encounter Additional Health Concerns Infection Onset Date Last Indicated Resolved Time COVID: Suspected 03/07/2025 03/07/2025 03/07/2025 9:33 PM CDT Ring Surveillance: CRE Comment:[id number] 03/09/2025 03/09/2025 03/13/2025 7:56 AM C DT documented as of this encounter Care Teams Pharmacist Technician Relationship Specialty Start Date End Date Olivier Puente MD [address] [place] [address] PCP - General Family Medicine 02/10/19 Ubaldo Kilgore MD [address] [place] [address] Plastic Surgery 04/10/24 documented as of this encounter
--- OUTSIDE RECORDS SUMMARY | 2025-06-26 07:47 | XMS_ITS | Encounter Summary ---
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
--- OUTSIDE RECORDS SUMMARY | 2025-06-26 07:47 | XMS_ITS | Encounter Summary ---
Author Organization [facility] Address [address] [place] [address] Phone Care Team Providers Care Sample Mounter Name Role Phone Olivier Puente MD Primary Care Provider Ubaldo Kilgore MD Unavailable [phone] Encounter Details Date Type Department Care Team (Late st Contact Info) Description 03/08/2025 Telephone [facility] Medicine Scheduling [address] [place] [address] Salvadorean, Tiki Social History Tobacco Use Types Packs/Day Years Used Date Smoking Tobacco: Never Smokeless Tobacco: Never Alcohol Use Standard Drinks/Week Comments Never 0 (1 standard drink = 0.6 oz pur e alcohol) [facility] Utilities Answer Date Recorded In the past 12 months has [employer], gas, oil, or water [employer] threatened to shut off services in your home? Patient unable to answer 03/11/2025 Social Connection and Isolation Panel Answer Date Recorded In a typical week, how many times do you talk on the phone with family, friends, or neighbors? Patient unable to answer 03/11/2025 How often do you get togethe r with friends or relatives? Patient unable to answer 03/11/2025 How often do you attend chur ch or rastafari services? Patient unable to answer 03/11/2025 Do you belong to any clubs o r organizations such as quaker groups, unions, fraternal or athletic groups, or school groups? Patient unable to answer 03/11/2025 How often do you attend meet ings of the clubs or organizations you belong to? Patient unable to answer 03/11/2025 Are you , , di vorced, , never , or living with a partner? Patient unable to answer 03/11/2025 AUDIT-C Answer Date Recorded Q1: How often [...] like food, housing, medical care, and heating? Patient unable to answer 03/11/2025 Hunger Vital Sign Answer Date Recorded Within the past 12 months, y ou worried that your food would run out before you got the money to buy more. Patient unable to answer 03/11/2025 Within the past 12 months, t he food you bought just didn't last and you didn't have money to get more. Patient unable to answer 03/11/2025 PRAPARE - Transportation Answer Date Re corded In the past 12 months, has l ack of transportation kept you from medical appointments or from getting medications? Patient unable to answer 03/11/2025 In the past 12 months, has l ack of transportation kept you from meetings, work, or from getting things needed for daily living? Patient unable to answer 03/11/2025 Housing Stability Vital Sign Answer Ezra e Recorded In the last 12 months, was t here a time when you were not able to pay the mortgage or rent on time? Patient unable to answer 03/11/2025 In the past 12 months, how m any times have you moved where you were living? 0 03/11/2025 At any time in the past 12 m [facility], were you homeless or living in a chcf (including now)? Patient unable to answer 03/11/2025 Personal Safety Answer Date Recorded Have you ever been in or are you currently in a harmful physical or emotional relationship or is someone making you feel afraid or unsafe? 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 Gender Identity Not on file Sexual Orientation Not on file documented as of this encounter Plan of Treatment Not on file documented as of this encounter Visit Diagnoses Not on filedocumented in this encounter Additional Health Concerns Infection Onset Date Last Indicated Resolved Time Ring Surveillance: CRE Comment:[id number] 03/09/2025 03/09/2025 03/13/2025 7:56 AM C DT documented as of this encounter Care Teams Sample Mounter Relationship Specialty Start Date End Date Olivier Puente MD [address] [place] [address] PCP - General Family Medicine 02/10/19 Ubaldo Kilgore MD [address] [place] [address] Plastic Surgery 04/10/24 documented as of this encounter
--- OUTSIDE RECORDS SUMMARY | 2025-06-26 07:47 | XMS_ITS | Encounter Summary ---
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 Historical Provider [facility] ANISA MCGUIRE Final Result documented in this encounter Visit Diagnoses Not on filedocumented in this encounter Additional Health Concerns Infection Onset Date Last Indicated Resolved Time COVID: Suspected 03/07/2025 03/07/2025 03/07/2025 9:33 PM CDT Ring Surveillance: CRE Comment:[id number] 03/09/2025 03/09/2025 03/13/2025 7:56 AM C DT documented as of this encounter Care Teams Value Analysis Coordinator Relationship Specialty Start Date End Date Olivier Puente MD [address] [place] [address] PCP - General Family Medicine 02/10/19 Ubaldo Kilgore MD [address] [place] [address] Plastic Surgery 04/10/24 documented as of this encounter
--- OUTSIDE RECORDS SUMMARY | 2025-06-26 07:47 | XMS_ITS | Encounter Summary ---
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 Historical Provider [facility] ANISA MCGUIRE Final Result * CARDIOLOGY REPORT (09/04/2016 12:00 AM LINK CUTTER) Anatomical Region Laterality Modality Other Narrative 09/04/2016 12:00 AM LINK CUTTER Ordered by an unspecified provider. us Historical Provider [facility] ANISA MCGUIRE Final Result documented in this encounter Visit Diagnoses Not on filedocumented in this encounter Additional Health Concerns Infection Onset Date Last Indicated Resolved Time COVID: Suspected 03/07/2025 03/07/2025 03/07/2025 9:33 PM CDT Ring Surveillance: CRE Comment:[id number] 03/09/2025 03/09/2025 03/13/2025 7:56 AM C DT documented as of this encounter Care Teams Car Wash Manager Relationship Specialty Start Date End Date Olivier Puente MD [address] [place] [address] PCP - General Family Medicine 02/10/19 Ubaldo Kilgore MD [address] [place] [address] Plastic Surgery 04/10/24 documented as of this encounter
--- OUTSIDE RECORDS SUMMARY | 2025-06-26 07:47 | XMS_ITS | Clinical Summary ---
Author Organization [facility] Address [address] [place] [id number] Care Team Providers Care Crown Assembly Machine Set Up Mechanic Name Role Phone Olivier Puente MD Primary Care Provider [phone] Allergies No known active allergies Medications [...] Comments Blood Pressure 140/78 10/29/2018 9:06 AM INJECTION SPECIALIST Pulse 76 10/29/2018 9:06 AM INJECTION SPECIALIST Temperature - - Respiratory Rate - - Oxygen Saturation - - Inhaled Oxygen Concentration - - Weight 104.4 kg (230 lb 3.2 oz) 10/29/2018 9:06 AM INJECTION SPECIALIST Height 172.7 cm (5' 8) 10/29/2018 9:06 AM INJECTION SPECIALIST Body Mass Index 35 10/29/2018 9:06 AM INJECTION SPECIALIST Plan of Treatment Health Maintenance Due Date Last Done Comments DTaP, Tdap and Td Vaccines ( 1 - Tdap) 1962 Pneumococcal Vaccine: 50+ Ye ars (1 of 1 - PCV) 1993 Zoster Vaccines (1 of 2) 1993 Annual Medicare Wellness Visit 2008 RSV Immunization or 60+ Years (1 - 1-dose 75+ series) 2018 COVID-19 Vaccine ( - 2023-2 5 season) 2025 Meningococcal B Vaccine Aged Out No l onger eligible based on patient's age to complete this topic Meningococcal Vaccine Aged Out No blu marah eligible based on patient's age to complete this topic RSV Immunizations Under 20 Months Aged Out No longer eligible based on patient's age to complete this topic Insurance [employer] Care Teams Crown Assembly Machine Set Up Mechanic Relationship Specialty Start Date End Date Olivier Puente MD [address] [place] [address] PCP - General FAMILY PRACTICE 10/05/18
--- OUTSIDE RECORDS SUMMARY | 2025-06-26 07:47 | XMS_ITS | Encounter Summary ---
Author Organization [facility] Facility Care Team Providers Care Strategy Planning Consultant Name Role Phone Olivier Puente MD Primary Care Provider Ubaldo Kilgore MD Unavailable [phone] Encounter Details Date Type Department Care Team (Latest Contact Info) Description 02/02/2002 Orders Only [facility] CLINCONV ProviderGiles MD [address] [place] [address] Social History Tobacco Use Types Packs/Day Years Used Date Smoking Tobacco: Never Assessed Sex and Gender Information Value Date Recorded Sex Assigned at Not on file Legal Sex Male 5:34 AM MAINFRAME ARCHITECT Gender Identity Not on file Sexual Orientation Not on file documented as of this encounter Plan of Treatment Not on file documented as of this encounter Procedures Procedure Name Priority Date/Time Associated Diagnosis Comments CARDIOLOGY REPORT 09/04/2016 12: 00 AM MAINFRAME ARCHITECT documented in this encounter Results * CARDIOLOGY REPORT (09/04/2016 12:00 AM MAINFRAME ARCHITECT) Anatomical Region Laterality Modality Other Narrative 09/04/2016 12:00 AM MAINFRAME ARCHITECT Ordered by an unspecified provider. Historical Provider [facility] ANISA MCGUIRE Final Result documented in this encounter Visit Diagnoses Not on filedocumented in this encounter Additional Health Concerns Infection Onset Date Last Indicated Resolved Time COVID: Suspected 03/07/2025 03/07/2025 03/07/2025 9:33 PM CDT Ring Surveillance: CRE Comment:[id number] 03/09/2025 03/09/2025 03/13/2025 7:56 AM C DT documented as of this encounter Care Teams Strategy Planning Consultant Relationship Specialty Start Date End Date Olivier Puente MD [address] [place] [address] PCP - General Family Medicine 02/10/19 Ubaldo Kilgore MD [address] [place] [address] Plastic Surgery 04/10/24 documented as of this encounter
--- OUTSIDE RECORDS SUMMARY | 2025-06-26 07:47 | XMS_ITS | Encounter Summary ---
Author Organization [facility] Facility Care Team Providers Care Baggagemaster Name Role Phone Olivier Puente MD Primary Care Provider Ubaldo Kilgore MD Unavailable [phone] Encounter Details Date Type Department Care Team (Latest Contact Info) Description 12/14/2018 Orders Only [facility] CLINCONV ProviderGiles MD [address] [place] [address] Social History Tobacco Use Types Packs/Day Years Used Date Smoking Tobacco: Never Assessed Sex and Gender Information Value Date Recorded Sex Assigned at Not on file Legal Sex Male 5:34 AM HEEL TRIMMER Gender Identity Not on file Sexual Orientation [...] AM CDT Ordered by an unspecified provider. us Historical Provider Final Res ult documented in this encounter Visit Diagnoses Not on filedocumented in this encounter Additional Health Concerns Infection Onset Date Last Indicated Resolved Time COVID: Suspected 03/07/2025 03/07/2025 03/07/2025 9:33 PM CDT Ring Surveillance: CRE Comment:[id number] 03/09/2025 03/09/2025 03/13/2025 7:56 AM C DT documented as of this encounter Care Teams Baggagemaster Relationship Specialty Start Date End Date Olivier Puente MD [address] [place] [address] PCP - General Family Medicine 02/10/19 Ubaldo Kilgore MD [address] [place] [address] Plastic Surgery 04/10/24 documented as of this encounter
--- OUTSIDE RECORDS SUMMARY | 2025-06-26 07:47 | XMS_ITS ---
Author Organization [facility] Address [address] [place] [address] Care Team Providers Care Division Order Technician Name Role Phone Olivier Puente MD Primary Care Provider Ubaldo Kilgore MD Unavailable [phone] Active Problems Problem Noted Date Diagnosed Date [...] & Plan (03/20/2025 11:33 AM CDT): Duplex 03/14 negative for DVT Lymphadema therapy Lasix as tolerated Assessment & Plan (03/19/2025 11:36 AM CDT): Duplex 03/14 negative for DVT Lymphadema therapy Lasix as [...] 11:33 AM CDT): Patient developed urinary retention 6 night s/p straight cath yielding 1 L output. Later he was found to have blood tinged urine without urinary retention. On 03/12 patient passed bloody urine with blood clots. -CT urogram: normal apperance of the kidneys, ureters, and urinary bladder -flomax + finasteride - outpatient cystoscopy - hematuria resolved. 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 Initiated on Mektoiv on 03/16/2025. -Onc following, [...] with bony mets. DX 02/2024, s/p WLE 09/29 Ln + - mRNA vaccine trial, pembro [...] 02/13/2025 Chest pressure 08/15/2024 Coronary atherosclerosis of ute coronary yenny ry 08/15/2024 Assessment & Plan (03/08/2025 3:27 PM CDT): aspirin, Ranexa and isosorbide along with the Toprol-XL. Athscl heart disease of ute cor art w oth ang pctrs 08/15/2024 [...] Stable. Assessment & Plan (09/06/2020 9:14 PM EMERGENCY SERVICES DIRECTOR): Chronic. Stable. No associated cardiomyopathy. Assessment & Plan (03/02/2020 2:25 PM CDT): Chronic. Stable. No associated cardiomyopathy. EKG today shows sinus bradycardia rate 53, first-degree AV block, left bundle branch block. Assessment & Plan (08/19/2019 2:50 PM EMERGENCY SERVICES DIRECTOR): Chronic. Stable. No intervention required. Assessment & Plan (04/14/2019 7:49 PM CDT): Stable. No intervention required. Assessment & Plan (03/25/2019 2:21 PM CDT): EKG today shows sinus bradycardia rate 55, first-degree AV block, left bundle branch block. History of coronary artery bypass surgery 2018 Assessment & Plan (03/21/2021 5:43 PM CDT): 2002, in [facility]. Assessment & Plan (09/06/2020 9:13 PM EMERGENCY SERVICES DIRECTOR): In 2002 in [place], [place]. Assessment & Plan (03/02/2020 2:25 PM CDT): In 2002 in [facility]. Assessment & Plan (08/19/2019 2:50 PM EMERGENCY SERVICES DIRECTOR): In 2002 in [place], [place]. Assessment & Plan (04/14/2019 7:50 PM CDT): In 2002 in [place], [place]. PSVT (paroxysmal supraventricular tachycardia) 0 02/10/2019 Assessment & Plan (03/21/2021 5:42 PM CDT): Toprol XL. Digoxin. No recurrence . Assessment & Plan (09/06/2020 9:14 PM EMERGENCY SERVICES DIRECTOR): Toprol XL. Digoxin. No recurrence. Assessment & Plan (03/01/2020 8:54 PM CDT): Toprol XL. Digoxin. No recurrence. Assessment & Plan (08/19/2019 2:51 PM EMERGENCY SERVICES DIRECTOR): Went to the [facility] and [place] with PSVT. Toprol-XL 50 mg p.o. daily, digoxin 0.125 mg daily. No recurrence of the PSVT. Assessment & Plan (04/14/2019 7:49 PM CDT): Zak went to [facility] brain CT and I with PSVT. The Toprol XL 50 mg p.o. Daily and digoxin 0.125 mg p.o. Daily. No recurrence of the PSVT. Assessment & Plan (03/24/2019 5:58 PM CDT): On 10/23/2007. Went to [facility]. No recurrence of PSVT. Toprol XL 50 mg p.o. Daily and digoxin 0.25 mg p.o. Daily. Heart murmur, systolic 02/12/2018 Assessment & Plan (03/21/2021 5:43 PM CDT): Echo Doppler 08/17/2018 showed normal ejection fraction. Aortic valve sclerosis but no stenosis. Mild AR. Assessment & Plan (09/06/2020 9:13 PM EMERGENCY SERVICES DIRECTOR): Echo Doppler 08/17/2018 showed normal ejection fraction. Mild aortic valve sclerosis but no stenosis. Mild AR. Assessment & Plan (03/01/2020 8:54 PM CDT): Echo Doppler 08/17/2018 showed normal ejection fraction. Mild aortic valve sclerosis but no stenosis. Mild aortic valve regurgitation. Assessment & Plan (08/19/2019 2:49 PM EMERGENCY SERVICES DIRECTOR): Echo 07/2018 showed normal ejection fraction. Mild [...] Atorvastatin. Assessment & Plan (09/06/2020 9:16 PM EMERGENCY SERVICES DIRECTOR): To the ostial ramus intermedius 11/17/2017. Repeat cardiac catheterization 04/07/2019, patent stent. Antiplatelet regimen. Aggressive risk factor modification. Assessment & Plan (03/01/2020 8:53 PM CDT): To the ostial ramus intermedius to 11/17/2017. Repeat cardiac catheterization 04/07/2019, patent stent. Antiplatelet regimen. Aggressive risk factor modification. Assessment & Plan (08/19/2019 2:48 PM EMERGENCY SERVICES DIRECTOR): To the ostial ramus intermedius to 11/17/2017. [...] (02/09/2019): Coronary artery bypass surgery 2003 in [facility]. JONAS to LAD, KERRI to ramus. Cardiac cath Dr. Navarro 03/12/2007. Medical treatment. Stable angina. 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 TTE 03/09 showed lVEF 45-50% -Continue aspirin and statin -Restarted Isosorbide, metoprolol XL and losartan at home dose -Renexa started at lower dose 500 mg bid -OP follow up clutch specialist Dr. 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 TTE 03/09 showed lVEF 45-50% -Continue aspirin and statin -Restarted Isosorbide, metoprolol XL and losartan at home dose -Renexa started at lower dose 500 mg bid -OP follow up clutch specialist Dr. 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 TTE 03/09 showed lVEF 45-50% -Continue aspirin and statin -Restarted Isosorbide, metoprolol XL and losartan at home dose -Renexa started at lower dose 500 mg bid -OP follow up clutch specialist Dr. 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 TTE 03/09 showed lVEF 45-50% -Continue aspirin and statin -Restarted Isosorbide, metoprolol XL and losartan at home dose -Renexa started at lower dose 500 mg bid -OP follow up clutch specialist Dr. 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 TTE 03/09 showed lVEF 45-50% -Continue aspirin and statin -Restarted Isosorbide, metoprolol XL and losartan at home dose -Renexa started at lower dose 500 mg bid -OP follow up clutch specialist Dr. 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 TTE 03/09 showed lVEF 45-50% -Continue aspirin and statin -Restarted Isosorbide, metoprolol XL and losartan at home dose -Renexa started at lower dose 500 mg bid -OP follow up clutch specialist Dr. 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 TTE 03/09 showed lVEF 45-50% -Continue aspirin and statin -Restarted Isosorbide, metoprolol XL and losartan at home dose -Renexa started at lower dose 500 mg bid -OP follow up clutch specialist Dr. 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 TTE 03/09 showed lVEF 45-50% -Continue aspirin and statin -Restarted Isosorbide, metoprolol XL and losartan at home dose -Renexa started at lower dose 500 mg bid -Daily dosing Lasix for extremity swelling. Did not order today 03/13 as patient has been exhausted from sleep deprivation last night -Will have patient follow up with his clutch specialist Dr. 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 -s/p 2 x 8 mm Synergy stent to ostial ramus intermedius (11/17/17), repeat cardiac catheterization 04/07/19, patent stent. -home meds include Aspirin, Imdur and Atorvastatin. 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 Assessment & Plan (03/21/2021 5:38 PM CDT): Coronary artery bypass surgery 2002 in [facility]. JONAS to LAD, KERRI to ramus. Cardiac cath Dr. Navarro 03/12/2007. Medical treatment. Cardiac catheterization 10/30/2017 with stent insertion in the ostium of the ramus intermedius. Repeat cardiac catheterization 04/07/2019. Medical treatment was decided. Aspirin. Atorvastatin. Brilinta. Assessment & Plan (09/06/2020 9:12 PM EMERGENCY SERVICES DIRECTOR): Coronary artery bypass surgery 2002 in [facility]. JONAS to LAD, KERRI to ramus. Cardiac [...] lately. Assessment & Plan (08/19/2019 2:46 PM EMERGENCY SERVICES DIRECTOR): Coronary artery bypass surgery 2003 in [facility]. JONAS to LAD, KERRI to ramus. Cardiac [...] CDT): Coronary artery bypass surgery 2002 in [facility]. JONAS to LAD, KERRI to ramus. Cardiac [...] CDT): Coronary artery bypass surgery 2002 in [facility]. JONAS to LAD, KERRI to ramus. Abnormal [...] 136/76. Assessment & Plan (09/07/2020 2:57 PM EMERGENCY SERVICES DIRECTOR): Blood pressure 122/66. Salt restriction. Continue the current regimen. Assessment & Plan (03/02/2020 2:24 PM CDT): Blood pressure 122/68. Salt restriction. Continue the current regimen. Assessment & Plan (08/19/2019 2:46 PM EMERGENCY SERVICES DIRECTOR): Blood pressure 122/60. Salt restriction. Continue the [...] 76. Assessment & Plan (09/07/2020 2:57 PM EMERGENCY SERVICES DIRECTOR): Low-fat low-cholesterol diet. Lipitor. 09/2018 the LDL was 79. In June 2020 the LDL was 76. Assessment & Plan (03/01/2020 8:52 PM CDT): Low-fat low-cholesterol diet. Lipitor 40 mg bedtime daily. On 04/07/2019 the LDL was 79. Assessment & Plan (08/19/2019 2:47 PM EMERGENCY SERVICES DIRECTOR): Low-fat low-cholesterol diet. Lipitor 40 mg bedtime [...] at home CXR with no acute findings LUCIANA gregory Assessment & Plan (03/02/2020 2:24 PM CDT): [...] nightly, Metformin, Glipizide, Tradjenta Continue Lantus, ISS Current Treatment and Therapy Plans Binimetinib PO BID QD 28 day cycles - Melanoma (NRAS)* Plan Start Date:02/12/2025 Plan Provider:Tan Harrell MD Linked Problems Malignant melanoma metastati c to lymph node (HCC)Melanoma of face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) Treatment Medications Current Day (Day 1 , Cycle 2 - Planned for 02/27/2025) Next Day (Day 1, Cycle 3 - Planned for 03/27/2025) binimetinib (MEKTOVI) binimetinib (MEKTO ) 15 mg tablet binimetinib (MEKTOVI) 15 mg tablet Denosumab Every 4 Weeks* Plan Start Date:02/27/2025 Plan Provider:Tan Harrell MD Linked Problems Melanoma of faceMetastatic m elanoma to parotid gland (HCC)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)Metastasis to bone Treatment Medications Current Day (Day 1 , Cycle 3 - Planned for 07/31/2025) Next Day (Day 1, Cycle 4 - Planned for 08/28/2025) No medications scheduled. No medications schedul ed. No medications scheduled. Past Treatment and Therapy Plans Oncology Chemotherapy Treatment Plan Name Start Date Discontinue Date Treatment Medications Discontinue Reason Plan Provider Cycles [id number] - [facility] - Melanoma - Control Arm - Pembrolizumab 07/18/20 24 02/13/2025 [id number] (2019-05-153/mR [id number]) pembrolizumab ([id number]) IVPB in 100 mL Progressive Disease Tan Harrell MD 8 of 18 cycles started Oncology Treatment (2) Plan Name Start Date Discontinue Date Treatment Medications Discontinue Reason Plan Provider Cycles Nivolumab 3 mg/kg / Ipilimumab 1 mg/kg 21 Day Cycles 5 02/13/2025 ipilimumab (YERVOY)ipilim umab (YERVOY) IVPB in 50 mLnivolumab (OPDIVO)nivolu mab (OPDIVO) in 50 mL IVPB Progressive Disease Tan Harrell MD 2 of 4 cycles completed Lifetime Dose Tracking * Chemical Lifetime Dose Automatic Entry Manual Entr y Fluoro Time 11.1 minutes 0 minutes 11.1 minutes Air kerma at the reference point (Ka,r) 2,644 mGy 0 mGy 2,644 mGy DLP 8,536 mGycm 8,536 mGycm 0 mGycm DAP 139.2 Gy-cm2 0 Gy-cm2 139.2 Gy-cm2
--- OUTSIDE RECORDS SUMMARY | 2025-06-26 07:47 | XMS_ITS | Encounter Summary ---
Author Organization [facility] Care Team Providers Care Stummel Selector Name Role Phone Olivier Puente MD Primary Care Provider Ubaldo Kilgore MD Unavailable [phone] Encounter Details Date Type Department Care Team (Latest Contact Info) Description 02/19/2018 Orders Only [facility] CLINCONV ProviderGiles MD [address] [place] [address] Social History Tobacco Use Types Packs/Day Years Used Date Smoking Tobacco: Never Assessed Sex and Gender Information Value Date Recorded Sex Assigned at Not on file Legal Sex Male 5:34 AM FABRIC AWNING REPAIRER Gender Identity Not on file Sexual Orientation Not on file documented as of this encounter Plan of Treatment Not on file documented as of this encounter Procedures Procedure Name Priority Date/Time Associated Diagnosis Comments SCAN - LABS 08/09/2018 12:00 AM FABRIC AWNING REPAIRER documented in this encounter Results * SCAN - LABS (08/09/2018 12:00 AM FABRIC AWNING REPAIRER) Narrative 08/09/2018 12:00 AM FABRIC AWNING REPAIRER Ordered by an unspecified provider. us Historical Provider Final Res ult documented in this encounter Visit Diagnoses Not on filedocumented in this encounter Additional Health Concerns Infection Onset Date Last Indicated Resolved Time COVID: Suspected 03/07/2025 03/07/2025 03/07/2025 9:33 PM CDT Ring Surveillance: CRE Comment:[id number] 03/09/2025 03/09/2025 03/13/2025 7:56 AM C DT documented as of this encounter Care Teams Stummel Selector Relationship Specialty Start Date End Date Olivier Puente MD [address] [place] [address] PCP - General Family Medicine 02/10/19 Ubaldo Kilgore MD [address] [place] [address] Plastic Surgery 04/10/24 documented as of this encounter
--- OUTSIDE RECORDS SUMMARY | 2025-06-26 07:47 | XMS_ITS | Encounter Summary ---
Author Organization [facility] Facility Care Team Providers Care Artificial Snow Making Machine Operator Name Role Phone Olivier Puente MD Primary Care Provider Ubaldo Kilgore MD Unavailable [phone] Encounter Details Date Type Department Care Team (Latest Contact Info) Description 02/10/2002 Orders Only [facility] CLINCONV ProviderGiles MD [address] [place] [address] Social History Tobacco Use Types Packs/Day Years Used Date Smoking Tobacco: Never Assessed Sex and Gender Information Value Date Recorded Sex Assigned at Not on file Legal Sex Male 5:34 AM PHOTOGRAMMETRIC SURVEYOR Gender Identity Not on file Sexual Orientation Not on file documented as of this encounter Plan of Treatment Not on file documented as of this encounter Procedures Procedure Name Priority Date/Time Associated Diagnosis Comments CARDIOLOGY REPORT 09/04/2016 12: 00 AM PHOTOGRAMMETRIC SURVEYOR documented in this encounter Results * CARDIOLOGY REPORT (09/04/2016 12:00 AM PHOTOGRAMMETRIC SURVEYOR) Anatomical Region Laterality Modality Other Narrative 09/04/2016 12:00 AM PHOTOGRAMMETRIC SURVEYOR Ordered by an unspecified provider. Historical Provider [facility] ANISA MCGUIRE Final Result documented in this encounter Visit Diagnoses Not on filedocumented in this encounter Additional Health Concerns Infection Onset Date Last Indicated Resolved Time COVID: Suspected 03/07/2025 03/07/2025 03/07/2025 9:33 PM CDT Ring Surveillance: CRE Comment:[id number] 03/09/2025 03/09/2025 03/13/2025 7:56 AM C DT documented as of this encounter Care Teams Artificial Snow Making Machine Operator Relationship Specialty Start Date End Date Olivier Puente MD [address] [place] [address] PCP - General Family Medicine 02/10/19 Ubaldo Kilgore MD [address] [place] [address] Plastic Surgery 04/10/24 documented as of this encounter
--- OUTSIDE RECORDS SUMMARY | 2025-06-26 07:47 | XMS_ITS | Encounter Summary ---
Author Organization [facility] Care Team Providers Care Varnish Remover Name Role Phone Olivier Puente MD Primary Care Provider Ubaldo Kilgore MD Unavailable [phone] Encounter Details Date Type Department Care Team (Latest Contact Info) Description 11/24/2017 Orders Only [facility] CLINCONV Provider, MD Giles [address] [place] [address] Social History Tobacco Use Types Packs/Day Years Used Date Smoking Tobacco: Never Assessed Sex and Gender Information Value Date Recorded Sex Assigned at Not on file Legal Sex Male 5:34 AM BEHAVIORAL TECHNICIAN Gender Identity Not on file Sexual Orientation Not on file documented as of this encounter Plan of Treatment Not on file documented as of this encounter Procedures Procedure Name Priority Date/Time Associated Diagnosis Comments SCAN - LABS 11/24/2017 12:00 AM BEHAVIORAL TECHNICIAN documented in this encounter Results * SCAN - LABS (11/24/2017 12:00 AM BEHAVIORAL TECHNICIAN) Narrative 11/24/2017 12:00 AM BEHAVIORAL TECHNICIAN Ordered by an unspecified provider. us Historical Provider Final Res ult documented in this encounter Visit Diagnoses Not on filedocumented in this encounter Additional Health Concerns Infection Onset Date Last Indicated Resolved Time COVID: Suspected 03/07/2025 03/07/2025 03/07/2025 9:33 PM CDT Ring Surveillance: CRE Comment:[id number] 03/09/2025 03/09/2025 03/13/2025 7:56 AM C DT documented as of this encounter Care Teams Varnish Remover Relationship Specialty Start Date End Date Olivier Puente MD [address] [place] [address] PCP - General Family Medicine 02/10/19 Ubaldo Kilgore MD [address] [place] [address] Plastic Surgery 04/10/24 documented as of this encounter
--- OUTSIDE RECORDS SUMMARY | 2025-06-26 07:47 | XMS_ITS | Encounter Summary ---
Author Organization [facility] Facility Care Team Providers Care Clinical Documentation Improvement Specialist Name Role Phone Olivier Puente MD Primary Care Provider Ubaldo Kilgore MD Unavailable [phone] Encounter Details Date Type Department Care Team (Latest Contact Info) Description 06/01/2018 Orders Only [facility] CLINCONV Provider, MD Giles [address] [place] [address] Social History Tobacco Use Types Packs/Day Years Used Date Smoking Tobacco: Never Assessed Sex and Gender Information Value Date Recorded Sex Assigned at Not on file Legal Sex Male 5:34 AM HUMAN RESOURCE PROFESSIONAL Gender Identity Not on file Sexual Orientation Not on file documented as of this encounter Plan of Treatment Not on file documented as of this encounter Procedures Procedure Name Priority Date/Time Associated Diagnosis Comments SCAN - LABS 08/24/2018 12:00 AM HUMAN RESOURCE PROFESSIONAL documented in this encounter Results * SCAN - LABS (08/24/2018 12:00 AM HUMAN RESOURCE PROFESSIONAL) Narrative 08/24/2018 12:00 AM HUMAN RESOURCE PROFESSIONAL Ordered by an unspecified provider. us Historical Provider Final Res ult documented in this encounter Visit Diagnoses Not on filedocumented in this encounter Additional Health Concerns Infection Onset Date Last Indicated Resolved Time COVID: Suspected 03/07/2025 03/07/2025 03/07/2025 9:33 PM CDT Ring Surveillance: CRE Comment:[id number] 03/09/2025 03/09/2025 03/13/2025 7:56 AM C DT documented as of this encounter Care Teams Clinical Documentation Improvement Specialist Relationship Specialty Start Date End Date Olivier Puente MD [address] [place] [address] PCP - General Family Medicine 02/10/19 Ubaldo Kilgore MD [address] [place] [address] Plastic Surgery 04/10/24 documented as of this encounter
--- OUTSIDE RECORDS SUMMARY | 2025-06-26 07:48 | XMS_ITS | Encounter Summary ---
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
--- OUTSIDE RECORDS SUMMARY | 2025-06-26 07:48 | XMS_ITS | Encounter Summary ---
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 us Historical Provider Final Res ult documented in this encounter Visit Diagnoses Not on filedocumented in this encounter Additional Health Concerns Infection Onset Date Last Indicated Resolved Time COVID: Suspected 03/07/2025 03/07/2025 03/07/2025 9:33 PM CDT Ring Surveillance: CRE Comment:[id number] 03/09/2025 03/09/2025 03/13/2025 7:56 AM C DT documented as of this encounter Care Teams Social Problems Specialist Relationship Specialty Start Date End Date Olivier Puente MD [address] [place] [address] PCP - General Family Medicine 02/10/19 Ubaldo Kilgore MD [address] [place] [address] Plastic Surgery 04/10/24 documented as of this encounter
--- OUTSIDE RECORDS SUMMARY | 2025-06-26 07:48 | XMS_ITS | Encounter Summary ---
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 Historical Provider [facility] ANISA MCGUIRE Final Result documented in this encounter Visit Diagnoses Not on filedocumented in this encounter Additional Health Concerns Infection Onset Date Last Indicated Resolved Time COVID: Suspected 03/07/2025 03/07/2025 03/07/2025 9:33 PM CDT Ring Surveillance: CRE Comment:[id number] 03/09/2025 03/09/2025 03/13/2025 7:56 AM C DT documented as of this encounter Care Teams Tissue Rewinder Relationship Specialty Start Date End Date Olivier Puente MD [address] [place] [address] PCP - General Family Medicine 02/10/19 Ubaldo Kilgore MD [address] [place] [address] Plastic Surgery 04/10/24 documented as of this encounter
--- OUTSIDE RECORDS SUMMARY | 2025-06-26 07:48 | XMS_ITS | Encounter Summary ---
Author Organization [facility] Facility Care Team Providers Care Agriscience Teacher Name Role Phone Olivier Puente MD Primary Care Provider Ubaldo Kilgore MD Unavailable [phone] Encounter Details Date Type Department Care Team (Latest Contact Info) Description 10/22/2017 Orders Only [facility] CLINCONV Provider, MD Giles [address] [place] [address] Social History Tobacco Use Types Packs/Day Years Used Date Smoking Tobacco: Never Assessed Sex and Gender Information Value Date Recorded Sex Assigned at Not on file Legal Sex Male 5:34 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 us Historical Provider Final Res ult documented in this encounter Visit Diagnoses Not on filedocumented in this encounter Additional Health Concerns Infection Onset Date Last Indicated Resolved Time COVID: Suspected 03/07/2025 03/07/2025 03/07/2025 9:33 PM CDT Ring Surveillance: CRE Comment:[id number] 03/09/2025 03/09/2025 03/13/2025 7:56 AM C DT documented as of this encounter Care Teams Agriscience Teacher Relationship Specialty Start Date End Date Olivier Puente MD [address] [place] [address] PCP - General Family Medicine 02/10/19 Ubaldo Kilgore MD [address] [place] [address] Plastic Surgery 04/10/24 documented as of this encounter
--- OUTSIDE RECORDS SUMMARY | 2025-06-26 07:48 | XMS_ITS | Encounter Summary ---
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 us Historical Provider Final Res ult documented in this encounter Visit Diagnoses Not on filedocumented in this encounter Additional Health Concerns Infection Onset Date Last Indicated Resolved Time COVID: Suspected 03/07/2025 03/07/2025 03/07/2025 9:33 PM CDT Ring Surveillance: CRE Comment:[id number] 03/09/2025 03/09/2025 03/13/2025 7:56 AM C DT documented as of this encounter Care Teams Seed Cleaning Manager Relationship Specialty Start Date End Date Olivier Puente MD [address] [place] [address] PCP - General Family Medicine 02/10/19 Ubaldo Kilgore MD [address] [place] [address] Plastic Surgery 04/10/24 documented as of this encounter
--- OUTSIDE RECORDS SUMMARY | 2025-06-26 07:48 | XMS_ITS | Encounter Summary ---
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 us Historical Provider Final Res ult documented in this encounter Visit Diagnoses Not on filedocumented in this encounter Additional Health Concerns Infection Onset Date Last Indicated Resolved Time COVID: Suspected 03/07/2025 03/07/2025 03/07/2025 9:33 PM CDT Ring Surveillance: CRE Comment:[id number] 03/09/2025 03/09/2025 03/13/2025 7:56 AM C DT documented as of this encounter Care Teams Driver Guide Relationship Specialty Start Date End Date Olivier Puente MD [address] [place] [address] PCP - General Family Medicine 02/10/19 Ubaldo Kilgore MD [address] [place] [address] Plastic Surgery 04/10/24 documented as of this encounter
--- OUTSIDE RECORDS SUMMARY | 2025-06-26 07:48 | XMS_ITS | Encounter Summary ---
Author Organization [facility] Facility Care Team Providers Care Harness Cleaner Name Role Phone Olivier Puente MD Primary Care Provider Ubaldo Kilgore MD Unavailable [phone] Encounter Details Date Type Department Care Team (Latest Contact Info) Description 12/21/2013 Orders Only [facility] CLINCONV ProviderGiles MD [address] [place] [address] Social History Tobacco Use Types Packs/Day Years Used Date Smoking Tobacco: Never Assessed Sex and Gender Information Value Date Recorded Sex Assigned at Not on file Legal Sex Male 5:34 AM ION IMPLANT MACHINE OPERATOR Gender Identity Not on file Sexual Orientation Not on file documented as of this encounter Plan of Treatment Not on file documented as of this encounter Procedures Procedure Name Priority Date/Time Associated Diagnosis Comments CARDIOLOGY REPORT 09/04/2016 12: 00 AM ION IMPLANT MACHINE OPERATOR CARDIOLOGY REPORT 12/21/2013 12: 00 AM CDT documented in this encounter Results * CARDIOLOGY REPORT (09/04/2016 12:00 AM ION IMPLANT MACHINE OPERATOR) Anatomical Region Laterality Modality Other Narrative 09/04/2016 12:00 AM ION IMPLANT MACHINE OPERATOR Ordered by an unspecified provider. Historical Provider [...] documented as of this encounter Care Teams Harness Cleaner Relationship Specialty Start Date End Date Olivier Puente MD [address] [place] [address] PCP - General Family Medicine 02/10/19 Ubaldo Kilgore MD [address] [place] [address] Plastic Surgery 04/10/24 documented as of this encounter
== END 2025-06-26 07:43 | disposition home or self-care (01) ==
PROVIDERS: PCP Family Medicine
DX: I65.23 Occlusion and stenosis of bilateral carotid arteries (principal); H34.8122 Central retinal vein occlusion, left eye, stable
CPT/HCPCS: 93880

== ENCOUNTER 2025-09-05 16:45 | Emergency (ER) | payer OTHER, SELFPAY ==
--- NOTE | ~2025-09-05 | CT_ITS ---
EXAMINATION: CT brain wo con DATE: 09/05/2025 18:26 INDICATION: Syncope. TECHNIQUE: Computed tomography (CT) of the head was performed without intravenous contrast. The mA was adjusted according to patient size. Iterative reconstruction technique was employed. The dose-length product was 605.33 mGy-cm. COMPARISON: Carotid Doppler dated 06/26/2025 FINDINGS: No acute intracranial bleed. Mild chronic small vessel ischemic change of periventricular white matter. Age-appropriate cerebral atrophy. IMPRESSION: 1. Limited noncontrast CT head shows no acute intracranial lesions. Reviewed, dictated and finalized at location T. GE MANAGEMENT ANALYST
--- NOTE | ~2025-09-05 | XR_ITS ---
EXAMINATION: XR chest 1V DATE: 09/05/2025 18:23 INDICATION: Syncope TECHNIQUE: A single frontal view of the chest was obtained. COMPARISON: Chest x-ray dated 07/18/2015. FINDINGS: Postoperative changes of the heart with moderate cardiomegaly and significant atherosclerotic aorta. Lungs are free of acute process. IMPRESSION: 1. No acute pulmonary findings. 2. Cardiomegaly, significant atherosclerotic aorta and postsurgical changes. Reviewed, dictated and finalized at location T. FROZEN DESSERT
[2025-09-05 16:55] VITALS: BP 110/62; PULSE 61; RESP 18; TEMP 36.2; O2SAT 96
--- NOTE | 2025-09-05 17:36 | ECG_ITS ---
Test Date: 2025-09-05 17:42:06 Measurements Intervals [place] Rate: 60 P: -54 MD: 307 QRS: 10 QRSD: 141 T: 93 QT: 471 QTc: 471 Interpretive Statements SINUS RHYTHM WITH SINUS ARRHYTHMIA WITH MARKED FIRST DEGREE AV BLOCK LEFT BUNDLE BRANCH BLOCK BASELINE ARTIFACT- I, III, V1 ABNORMAL ECG No previous ECG available for comparison Electronically Signed On 09-05-2025 19:00:09 [place] by Crow Avendaño D.O.
--- NOTE | 2025-09-05 17:51 | ED_ITS ---
HPI - Syncope General Chief Complaint: Syncope Stated Complaint: nausea/syncope Related Data Home Medications ?Medication ?Instructions ?Recorded ?Confirmed ?Last Taken ?Type aspirin 81 mg tablet,delayed 81 mg PO DAILY 08/19/19 0 06/21/25 11/26/19 History release atorvastatin 40 mg tablet 40 mg PO DAILY 08/19/1905/3011/29/19 History terbinafine HCl 250 mg tablet 250 mg PO DAILY 08/19/19 06/21/25 11/29/19 History ticagrelor 90 mg tablet (Brilinta) 90 mg PO DAILY 07/3006/21/25 10/29/19 History ezetimibe 10 mg tablet 10 mg PO DAILY 03/29/2505/30 Unknown History finasteride 5 mg tablet 5 mg PO DAILY 03/29/2506/21 Unknown History isosorbide mononitrate 60 mg 30 mg PO DAILY 03/29/25 0 06/21/25 Unknown History tablet,extended release 24 hr losartan 25 mg tablet 25 mg PO DAILY 03/29/2505/30 Unknown History metoprolol succinate 25 mg mg PO 03/29/25 06/21/25 Unk nown History tablet,extended release 24 hr nitroglycerin 0.4 mg sublingual 0.4 mg sublingual Q5M PRN 03/29/25 06/21/25 Unknown History tablet tamsulosin 0.4 mg capsule mg PO 03/29/25 06/21/25 Unkn own History Allergies Allergy/AdvReac Type Severity Reaction Status Date / Time No Known Allergies Allergy Verified 06/21/25 08:24 [facility] Past Medical History Medical History Melanoma CKD (chronic kidney disease), stage III Hypertensive heart and chronic kidney disease without heart failure, with stage 1 through stage 4 chronic kidney disease, or unspecified chronic kidney disease DM renal manif type II Controlled diabetes mellitus Type 2 diabetes mellitus with hyperglycemia Hypertensive heart disease without heart failure Mild persistent asthma without complication Surgical History Surgical History History of coronary artery bypass graft Family History Family History Father Carcinoma of colon Social History Social History Smoking status: Former smoker Second hand tobacco smoke exposure: No Alcohol intake: current Alcohol use details: rare Substance use: never Substance use type: does not use Lack of Transportation: No Lack of Food: Never True Current Housing: I Have Housing Concerned About Future Housing: No Difficulty Paying Gas/Electric Bills: No Difficulty Paying for Meds: No Currently Unemployed: YES Education: Don't Know Difficulty w/ Childcare or Family Care: No Living arrangements: with family Occupation/Education: retired Gender identity (if verbalized by the patient): Male Sexual Orientation (if Verbalized by the Patient): Straight or Heterosexual Course Vital Signs Vital signs: Vital Signs Temperature 97.2 F L 09/05/25 16:55 Pulse Rate 61 09/05/25 16:55 Respiratory Rate 18 09/05/25 16:55 Blood Pressure 110/62 09/05/25 16:55 Pulse Oximetry 96 09/05/25 16:55 Oxygen Delivery Room Air 09/05/25 16:55 Temperature 97.2 F L 09/05/25 16:55 Pulse Rate 61 09/05/25 16:55 Respiratory Rate 18 09/05/25 16:55 Blood Pressure 110/62 09/05/25 16:55 Pulse Oximetry 96 09/05/25 16:55 Oxygen Delivery Room Air 09/05/25 16:55 Discharge Plan Discharge Patient Language: [place] Islander Prescriptions: No Action aspirin 81 mg tablet,delayed release (DR/EC) 81 mg PO DAILY terbinafine HCl 250 mg tablet 250 mg PO DAILY Brilinta 90 mg tablet 90 mg PO DAILY atorvastatin 40 mg tablet 40 mg PO DAILY glipizide 10 mg tablet extended release 24hr 10 mg PO DAILY Qty: 90 3RF ezetimibe 10 mg tablet 10 mg PO DAILY finasteride 5 mg tablet 5 mg PO DAILY isosorbide mononitrate 60 mg tablet extended release 24 hr 30 mg PO DAILY tamsulosin 0.4 mg capsule PO ranolazine 500 mg tablet extended release 12 hr 500 mg PO Q12H Qty: 180 1RF metoprolol succinate 25 mg tablet extended release 24 hr PO losartan 25 mg tablet 25 mg PO DAILY nitroglycerin 0.4 mg tablet, sublingual 0.4 mg sublingual Q5M PRN Rx Instructions: do not exceed 3 doses per episode lorazepam 0.5 mg tablet 0.5 mg PO DAILY PRN (Reason: anxiety) Qty: 10 0RF (DME) Contour Next Test Strips Strip See Rx Instructions .ROUTE .MEDSUPPLY Qty: 100 3RF Rx Instructions: use to test blood sugar QID insulin glargine [Lantus Solostar U-100 Insulin] 100 unit/mL (3 mL) insulin pen 25 unit subcut QPM Qty: 15 2RF Tradjenta 5 mg tablet 5 mg PO QAM Qty: 90 2RF albuterol sulfate 90 mcg/actuation HFA aerosol inhaler 1 inh inhalation Q4H PRN (Reason: shortness of breath) Qty: 8.5 2RF triamterene-hydrochlorothiazid 37.5-25 mg tablet See Rx Instructions .ROUTE .COMPLEX Qty: 45 3RF Dose Instruction: TAKE 1/2 TABLET BY MOUTH EVERY DAY Rx Instructions: TAKE 1/2 TABLET BY MOUTH EVERY DAY (DME) pen needle, diabetic [Jacqui 2nd Gen Pen Needle] 32 gauge x 5/32 needle See Rx Instructions .Route Qty: 100 2RF Rx Instructions: As directed metformin 500 mg tablet extended release 24 hr 2,000 mg PO DAILY Qty: 360 1RF hydroxyzine HCl 25 mg tablet See Rx Instructions .ROUTE .COMPLEX Qty: 90 0RF Dose Instruction: TAKE 1 TABLET (25 MG TOTAL) BY MOUTH NIGHTLY NEEDED FOR ANXIETY (SLEEP) Rx Instructions: TAKE 1 TABLET (25 MG TOTAL) BY MOUTH NIGHTLY NEEDED FOR ANXIETY (SLEEP) Follow-up/Referrals: Olivier Puente MD [Primary Care Provider, Family Practice]
[2025-09-05 18:08] VITALS: BP 123/75; PULSE 69; RESP 21; O2SAT 96
[2025-09-05] MEDS: ONDANSETRON INJ 4 MG/2 ML VIAL IV PUSH (18:13)
[2025-09-05 18:20] LABS: Hematocrit 40.2 % (42.0-52.0); Hemoglobin 13.2 g/dL (14.0-18.0); Immature Granulocyte Percent A 0.6 % (0-0.5); Lymphocytes Absolute Auto 5.67 K/mm3 (0.9-3.2); Mean Corpuscular HGB Conc 32.8 g/dl (32-36); Mean Corpuscular Hemoglobin 29.1 pg (26-34); Mean Corpuscular Volume 88.7 fl (80-100); Nucleated Red Blood Cells Absolute Auto 0.000 K/mm3 (0.0-0.012); Nucleated Red Blood Cells Perc 0.0 % (0.0-0.2); Platelet Count Result 358 k/mm3 (150-375); Red Blood Count 4.53 M/mm3 (4.6-6.20); White Blood Count 17.4 K/mm3 (4.5-10.0)
[2025-09-05 18:31] LABS: INR 1.1; Prothrombin Time 14.4 Seconds (11.1-14.7)
[2025-09-05 18:32] LABS: Partial Thromboplastin Time 25.2 Seconds (22.3-36.8)
[2025-09-05 18:33] LABS: Ovalocytes 1+
[2025-09-05 18:34] LABS: Schistocytes None Seen
[2025-09-05 18:46] LABS: Alanine Aminotransferase 51 U/L (6-50); Albumin Level 4.2 g/dL (3.5-5.1); Alkaline Phosphatase 96 U/L (38-126); Anion Gap 6 mmol/L (4-12); Aspartate Amino Transferase 55 U/L (17-59); Bilirubin,Total 0.7 mg/dL (0.2-1.3); Blood Urea Nitrogen 33 mg/dL (9-20); Calcium 8.9 mg/dL (8.4-10.2); Carbon Dioxide 26 mmol/L (22-30); Chloride 104 mmol/L (98-107); Estimated CRCL calculation 34 ml/min; Estimated Glomerular Filt Rate 37; Glucose 254 mg/dL (65-110); Magnesium 2.2 mg/dL (1.6-2.3); Potassium 4.9 mmol/L (3.4-5.0); Sodium 136 mmol/L (137-145); Total Protein 7.7 g/dL (6.3-8.2)
[2025-09-05 18:56] LABS: Troponin I < 0.012 ng/mL (0.000-0.034)
--- NOTE | 2025-09-05 19:30 | ED.DIZZY ---
HPI - Dizziness General Chief Complaint: Syncope Stated Complaint: nausea/syncope Time Seen by Provider: 09/05/25 18:59 History of Present Illness HPI Narrative: Patient was at dinner when he suddenly started feeling very nauseous, with some abdominal pain, he then reportedly passed out. He cannot recall what happened afterwards, was brought here, he is now denying any complaints though he does think he has been having some diarrhea. No longer dizzy, no chest pain or shortness of breath. Related Data Home Medications ?Medication ?Instructions ?Recorded ?Confirmed ?Last Taken ?Type aspirin 81 mg tablet,delayed 81 mg PO DAILY 08/19/19 06/21/25 11/26/19 History release atorvastatin 40 mg tablet 40 mg PO DAILY 08/19/19 06/21/25 11/29/19 History terbinafine HCl 250 mg tablet 250 mg PO DAILY 08/19/19 06/21/25 11/29/19 History ticagrelor 90 mg tablet (Brilinta) 90 mg PO DAILY 08/19/19 06/21/25 10/29/19 History ezetimibe 10 mg tablet 10 mg PO DAILY 03/29/25 06/21/25 Unknown History finasteride 5 mg tablet 5 mg PO DAILY 03/29/25 06/21/25 Unknown History isosorbide mononitrate 60 mg 30 mg PO DAILY 03/29/25 06/21/25 Unknown History tablet,extended release 24 hr losartan 25 mg tablet 25 mg PO DAILY 03/29/25 06/21/25 Unknown History metoprolol succinate 25 mg mg PO 03/29/25 06/21/25 Unknown History tablet,extended release 24 hr nitroglycerin 0.4 mg sublingual 0.4 mg sublingual Q5M PRN 03/29/25 06/21/25 Unknown History tablet tamsulosin 0.4 mg capsule mg PO 03/29/25 06/21/25 Unknown History Allergies Allergy/AdvReac Type Severity Reaction Status Date / Time No Known Allergies Allergy Verified 09/05/25 18:13 Review of Systems Review of Systems: All systems reviewed & are unremarkable except as noted in HPI and below PMFSH Past Medical History Medical History Melanoma CKD (chronic kidney disease), stage III Hypertensive heart and chronic kidney disease without heart failure, with stage 1 through stage 4 chronic kidney disease, or unspecified chronic kidney disease DM renal manif type II Controlled diabetes mellitus Type 2 diabetes mellitus with hyperglycemia Hypertensive heart disease without heart failure Mild persistent asthma without complication Surgical History Surgical History History of coronary artery bypass graft Family History Family History Father Carcinoma of colon Social History Social History Smoking status: Former smoker Second hand tobacco smoke exposure: No Alcohol intake: current Alcohol use details: rare Substance use: never Substance use type: does not use Lack of Transportation: No Lack of Food: Never True Current Housing: I Have Housing Concerned About Future Housing: No Difficulty Paying Gas/Electric Bills: No Difficulty Paying for Meds: No Currently Unemployed: YES Education: Don't Know Difficulty w/ Childcare or Family Care: No Living arrangements: with family Occupation/Education: retired Gender identity (if verbalized by the patient): Male Sexual Orientation (if Verbalized by the Patient): Straight or Heterosexual Exam Narrative: EXAMINATION OF ORGAN SYSTEMS/BODY AREAS: Constitutional: Vital signs per nursing GENERAL:No acute distress, non-toxic appearing. HEAD: Normal with no signs of head trauma. EYES: EOMI, conjunctiva normal ENT: Hearing grossly intact LUNGS: Nonlabored breathing. HEART: Regular rate and rhythm ABD: Soft, nontender to palpation EXT: Normal range of motion SKIN: No rashes or lesions. NEURO: Alert. No gross focal sensory or strength deficits. PSYCH: Normal affect Course Vital Signs Vital signs: Vital Signs Temperature 97.2 F L 09/05/25 16:55 Pulse Rate 61 09/05/25 16:55 Respiratory Rate 18 09/05/25 16:55 Blood Pressure 110/62 09/05/25 16:55 Pulse Oximetry 96 09/05/25 16:55 Oxygen Delivery Room Air 09/05/25 16:55 Temperature 97.2 F L 09/05/25 16:55 Pulse Rate 69 09/05/25 18:08 Respiratory Rate 21 H 09/05/25 18:08 Blood Pressure 123/75 09/05/25 18:08 Pulse Oximetry 96 09/05/25 18:08 Oxygen Delivery Room Air 09/05/25 16:55 MDM MDM Narrative Medical decision making narrative: 80-year-old male with cardiac history presents here after syncopal episode, this happened while he was seated eating dinner, he started having abdominal pain got very nauseous, and then passed out. No chest pain or shortness of breath. On arrival here, he is now denying any complaints, he says he feels great. Does have some diarrhea now. Labs obtained, he does have a white count which may be from the vomiting, creatinine 1.78 which is slightly bumped from his normal, I suspect from dehydration so I will give him some fluids. Troponin is negative. CT brain negative. EKG - 12-Lead: Performed at 1742. Interpreted by me. Sinus rhythm. Rate 60. Normal axis. NM-interval 307. QRS duration 141. QTc 471. No ST segment elevation or depression. T-wave normal. Impression: No EKG evidence of acute ischemia or dysrhythmia. I did discuss findings with the patient, with offer of admission, he says he is feels much better would like to go home. I have asked him to follow-up with his primary care doctor and/or velocity shooter and return to the ER if he changes his mind or if his symptoms return worsen. Son is here at bedside, also agreeable to plan. Differential Diagnosis Differential Diagnosis: Vasovagal syncope, gastroenteritis, arrhythmia or ischemia Lab Data 09/05/25 18:11 09/05/25 18:11 Labs: Lab Results 09/05/25 09/05/25 Range/Units 18:05 18:11 WBC 17.4 H (4.5-10.0) K/mm3 RBC 4.53 L (4.6-6.20) M/mm3 Hgb 13.2 L (14.0-18.0) g/dL Hct 40.2 L (42.0-52.0) % MCV 88.7 (80-100) fl MCH 29.1 (26-34) pg MCHC 32.8 (32-36) g/dl RDW 14.0 (11.5-14.5) % Plt Count 358 D (150-375) k/mm3 MPV 9.4 (7.4-10.4) fl Immature Gran % (Auto) 0.6 H (0-0.5) % Neut % (Auto) 58.0 (45.5-73.1) % Lymph % (Auto) 32.5 (18.3-44.2) % Stewart % (Auto) 4.9 (2.6-8.5) % Eos % (Auto) 3.4 (0-4.4) % Baso % (Auto) 0.6 (0.2-1.2) % Lymph # (Auto) 5.67 H (0.9-3.2) K/mm3 Stewart # (Auto) 0.9 H (0.1-0.6) K/mm3 Eos # (Auto) 0.6 H (0-0.3) K/mm3 Baso # (Auto) 0.1 (0.0-0.1) K/mm3 Abs Immat Gran (auto) 0.11 H (0.00-0.031) K/mm3 Absolute Neuts (auto) 10.1 H (1.3-6.7) K/mm3 Absolute Nucleated RBC 0.000 (0.0-0.012) K/mm3 Band Neutrophils % Not Reportable Nucleated RBC % 0.0 (0.0-0.2) % Platelet Estimate Adequate (Adequate) Ovalocytes 1+ Schistocytes None seen PT 14.4 (11.1-14.7) Seconds INR 1.1 APTT 25.2 (22.3-36.8) Seconds Sodium 136 L (137-145) mmol/L Potassium 4.9 (3.4-5.0) mmol/L Chloride 104 (98-107) mmol/L Carbon Dioxide 26 (22-30) mmol/L Anion Gap 6 (4-12) mmol/L BUN 33 H D (9-20) mg/dL Creatinine 1.78 H (0.7-1.3) mg/dL Estim Creat Clear Calc 34 ml/min Estimated GFR 37 L (59 - ) Glucose 254 H (65-110) mg/dL POC Capillary Glucose 260 H (65-105) mg/dl Lactic Acid 1.5 (0.7-2.0) mmol/L Calcium 8.9 (8.4-10.2) mg/dL Magnesium 2.2 (1.6-2.3) mg/dL Total Bilirubin 0.7 (0.2-1.3) mg/dL AST 55 (17-59) U/L ALT 51 H (6-50) U/L Alkaline Phosphatase 96 (38-126) U/L Troponin I < 0.012 (0.000-0.034) ng/mL Total Protein 7.7 (6.3-8.2) g/dL Albumin 4.2 (3.5-5.1) g/dL Imaging Data Radiologist's impression: ITS Impressions Chest X-Ray 09/05/25 18:24 IMPRESSION: 1. No acute pulmonary findings. 2. Cardiomegaly, significant atherosclerotic aorta and postsurgical changes. Head CT 09/05/25 18:27 IMPRESSION: 1. Limited noncontrast CT head shows no acute intracranial lesions. Discharge Plan Discharge Clinical Impression: Nausea and vomiting, Syncope Patient Disposition: Home Condition: Stable Instructions: Dehydration (ED), Syncope (ED) Additional Instructions: Please follow-up with your velocity shooter and primary care doctor, if you change your mind about staying in the hospital you can always come back, or if you have any returning symptoms or anything else concerning. Patient Language: Vietnamese Prescriptions: New ondansetron 4 mg tablet,disintegrating 4 mg PO Q8H PRN (Reason: nausea and vomiting) Qty: 10 0RF No Action aspirin 81 mg tablet,delayed release (DR/EC) 81 mg PO DAILY terbinafine HCl 250 mg tablet 250 mg PO DAILY Brilinta 90 mg tablet 90 mg PO DAILY atorvastatin 40 mg tablet 40 mg PO DAILY glipizide 10 mg tablet extended release 24hr 10 mg PO DAILY Qty: 90 3RF ezetimibe 10 mg tablet 10 mg PO DAILY finasteride 5 mg tablet 5 mg PO DAILY isosorbide mononitrate 60 mg tablet extended release 24 hr 30 mg PO DAILY tamsulosin 0.4 mg capsule PO ranolazine 500 mg tablet extended release 12 hr 500 mg PO Q12H Qty: 180 1RF metoprolol succinate 25 mg tablet extended release 24 hr PO losartan 25 mg tablet 25 mg PO DAILY nitroglycerin 0.4 mg tablet, sublingual 0.4 mg sublingual Q5M PRN Rx Instructions: do not exceed 3 doses per episode lorazepam 0.5 mg tablet 0.5 mg PO DAILY PRN (Reason: anxiety) Qty: 10 0RF (DME) Contour Next Test Strips Strip See Rx Instructions .ROUTE .MEDSUPPLY Qty: 100 3RF Rx Instructions: use to test blood sugar QID insulin glargine [Lantus Solostar U-100 Insulin] 100 unit/mL (3 mL) insulin pen 25 unit subcut QPM Qty: 15 2RF Tradjenta 5 mg tablet 5 mg PO QAM Qty: 90 2RF albuterol sulfate 90 mcg/actuation HFA aerosol inhaler 1 inh inhalation Q4H PRN (Reason: shortness of breath) Qty: 8.5 2RF triamterene-hydrochlorothiazid 37.5-25 mg tablet See Rx Instructions .ROUTE .COMPLEX Qty: 45 3RF Dose Instruction: TAKE 1/2 TABLET BY MOUTH EVERY DAY Rx Instructions: TAKE 1/2 TABLET BY MOUTH EVERY DAY (DME) pen needle, diabetic [Jacqui 2nd Gen Pen Needle] 32 gauge x 5/32 needle See Rx Instructions .Route Qty: 100 2RF Rx Instructions: As directed metformin 500 mg tablet extended release 24 hr 2,000 mg PO DAILY Qty: 360 1RF hydroxyzine HCl 25 mg tablet See Rx Instructions .ROUTE .COMPLEX Qty: 90 0RF Dose Instruction: TAKE 1 TABLET (25 MG TOTAL) BY MOUTH NIGHTLY NEEDED FOR ANXIETY (SLEEP) Rx Instructions: TAKE 1 TABLET (25 MG TOTAL) BY MOUTH NIGHTLY NEEDED FOR ANXIETY (SLEEP) Follow-up/Referrals: Olivier Puente MD [Primary Care Provider, Family Practice]
[2025-09-05] MEDS: LACTATED RINGERS 1,000 ML 999 ML IV CONT (19:48)
[2025-09-05 19:50] VITALS: BP 111/76; PULSE 60; RESP 18; O2SAT 100
== END 2025-09-05 20:33 | disposition home or self-care (01) ==
PROVIDERS: Physician Assistant; Emergency Provider Emergency Medicine; PCP Family Medicine
DX: R11.2 Nausea with vomiting, unspecified (principal); R55 Syncope and collapse; I12.9 Hypertensive chronic kidney disease with stage 1 through stage 4 chronic kidney disease, or unspecified chronic kidney disease; E11.22 Type 2 diabetes mellitus with diabetic chronic kidney disease; N18.30 Chronic kidney disease, stage 3 unspecified; J45.30 Mild persistent asthma, uncomplicated; Z95.1 Presence of aortocoronary bypass graft; Z87.891 Personal history of nicotine dependence; I51.7 Cardiomegaly; Z79.02 Long term (current) use of antithrombotics/antiplatelets; Z79.899 Other long term (current) drug therapy; Z79.4 Long term (current) use of insulin; Z79.84 Long term (current) use of oral hypoglycemic drugs
CPT/HCPCS: 36415; 70450; 71045; 80053; 82948; 83605; 83735; 84484; 85025; 85610; 85730; 93005; 96361; 96374; 99284; J2405; J7120